=== PATIENT | female | born 1975 | race Caucasian/White ===

== ENCOUNTER → 2017-03-20 | Outpatient (CLI) | payer MEDICARE, MEDICAID ==
[~2017-03-20] MED LIST: ALPR0.2550 PO; ALPR1TAB7 PO; ALPR1TAB72 PO; BLUE GOO TOP; CYCL10TA9 PO; DIAZ10TA3 PO; DICL25TA PO; ESTR0.9T PO; FLC100T1 PO; FLUC150T2 PO; GABA300C PO; GBPN100C PO; HYDR-2997 PO; HYDR-3454 PO; HYDR-3816 PO; HYDR118S10 PO; HYDR1TAB PO; METH4TAB PO; MICONAZOLE 2% TOP; NAPR220C PO; NAPR500T3 PO; ONDA8TAB13 PO; ONDA8TAB6 PO; PANT40TA3 PO; PHEN-566 PO; PHEN37.582; RANI150T15 PO; SUMA25TA3 PO; SUMA50TA2 PO; TIZA4TAB55; [UNRECOGNIZED DRUG - OTHER] PO
--- NOTE | 2017-03-20 18:49 | Diagnostic Imaging Report ---
Bilateral screening mammogram 2D views with tomosynthesis The current study was also evaluated with a Computer Aided Detection (CAD) system. INDICATION: Screening. No current complaints stated on the questionnaire. COMPARISON: 03/02/2016. FINDINGS: The breasts are composed of scattered fibroglandular densities. There are scattered benign-appearing calcifications. Allowing for technique and positional differences, no suspicious change is seen. IMPRESSION: No significant change. ACR BI-RADS Category 2: Benign findings. Result letter will be mailed to the patient. Note: At least 10% of breast cancer is not imaged by mammography. Dictated by: Dictated on workstation # [id number]
== END ==
LOC: RAD 08:31
PROVIDERS: ATTEND Family Medicine
DX: Z12.31 Encounter for screening mammogram for malignant neoplasm of breast (principal)
CPT/HCPCS: 77067

== ENCOUNTER → 2018-01-03 | Outpatient (CLI) | payer MEDICARE, MEDICAID ==
[~2018-01-03] MED LIST changes: +HYDR-34 PO; -HYDR-3816 PO; +NAPR-915 PO; -NAPR500T3 PO; -RANI150T15 PO; +RANI150T46 PO
--- NOTE | 2018-01-03 19:08 | Diagnostic Imaging Report ---
INDICATION: Left shoulder pain and catching. TIME OF EXAM: 02:43 p.m. FINDINGS: Internal and external rotation views of the left shoulder are obtained. Glenohumeral and acromioclavicular alignment is normal. Acromiohumeral space is normal. No fracture or dislocation is seen. IMPRESSION: No acute bony abnormality is detected. Dictated by: Dictated on workstation # [id number]
== END ==
LOC: RAD 13:53
PROVIDERS: ATTEND Family Medicine
DX: M25.512 Pain in left shoulder (principal)
CPT/HCPCS: 73030

== ENCOUNTER 2018-02-10 17:23 | Emergency (ER) | payer MEDICARE, MEDICAID ==
[~2018-02-10] VITALS: Ht 175.3 cm; Wt 90.7 kg
[2018-02-10] MEDS ORDERED: fentaNYL INJECTION 100 MCG/2 ML AMP IVP ONE (17:45)
--- NOTE | 2018-02-10 18:15 | Diagnostic Imaging Report ---
INDICATION: Pain. EXAMINATION: Three views of the left shoulder were obtained. FINDINGS: The alignment is normal. There is no fracture or dislocation. The soft tissues are unremarkable. Left lung apex is clear. IMPRESSION: No acute fracture or dislocation. Dictated by: Dictated on workstation # [id number]
[2018-02-10] MEDS ORDERED: morphine INJ 10 MG/ML 1ML (SYR OR VIAL) IVP ONE (18:30)
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
[2018-02-10] MEDS ORDERED: HYDROcodone/APAP 10 MG/325 MG (LORTAB) TAB PO ONE (18:45)
[2018-02-10 18:53] VITALS: BP 128/67
== END 2018-02-10 18:50 | disposition home or self-care (01) ==
LOC: EDUNIT# 17:23 → ER 17:24
DX: M25.512 Pain in left shoulder (principal); K21.9 Gastro-esophageal reflux disease without esophagitis; F41.9 Anxiety disorder, unspecified; Z88.1 Allergy status to other antibiotic agents; Z88.8 Allergy status to other drugs, medicaments and biological substances; Z90.710 Acquired absence of both cervix and uterus
CPT/HCPCS: 73030

== ENCOUNTER 2018-03-14 08:42 | Outpatient (RCR) | payer MEDICARE, MEDICAID | END 2018-04-19 13:29 | disposition home or self-care (01) | PROVIDERS: ATTEND Orthopaedic Surgery | DX: Z47.89 Encounter for other orthopedic aftercare (principal); M25.512 Pain in left shoulder ==

== ENCOUNTER → 2018-03-21 | Outpatient (CLI) | payer MEDICARE, MEDICAID ==
--- NOTE | 2018-03-22 19:48 | Diagnostic Imaging Report ---
The current study was also evaluated with a Computer Aided Detection (CAD) system. 3-D tomosynthesis was also performed and reviewed. INDICATION: Digital mammogram bilateral screening. This study was compared to the prior exams of 03/20/2017, 03/02/2016 and 03/01/2015. At this time, there are no current complaints. FINDINGS: There are scattered fibroglandular densities in both breasts which could obscure a lesion. Overall, there does not appear to have been any significant change when compared to the prior exam. No primary or secondary sign of malignancy is noted. IMPRESSION: There is no radiographic evidence for malignancy. ACR BI-RADS Category 1: Negative. Result letter will be mailed to the patient. Note: At least 10% of breast cancer is not imaged by mammography. Dictated by: Dictated on workstation # [id number]
== END ==
LOC: RAD 07:13
PROVIDERS: ATTEND Family Medicine
DX: Z12.31 Encounter for screening mammogram for malignant neoplasm of breast (principal)
CPT/HCPCS: 77067

== ENCOUNTER → 2018-05-28 | Outpatient (CLI) | payer MEDICARE, MEDICAID ==
[2018-05-28 10:18] LABS: BASOPHILS % (AUTO) 0 % (0-10); EOSINOPHILS # (AUTO) 0.1 10^3/uL (0.0-0.3); EOSINOPHILS % (AUTO) 1 % (0-10); HEMATOCRIT 42 % (35-52); HEMOGLOBIN 14.3 G/DL (11.5-16.0); LYMPHOCYTES # (AUTO) 1.5 X 10^3 (1.0-4.0); LYMPHOCYTES % (AUTO) 21 % (12-44); MEAN CORPUSCULAR HEMOGLOBIN 30 PG (25-34); MEAN CORPUSCULAR HGB CONC 34 G/DL (32-36); MEAN CORPUSCULAR VOLUME 87 FL (80-99); MONOCYTES # (AUTO) 0.3 X 10^3 (0.0-1.0); MONOCYTES % (AUTO) 4 % (0-12); NEUTROPHILS # (AUTO) 5.3 X 10^3 (1.8-7.8); NEUTROPHILS % (AUTO) 73 % (42-75); PLATELET COUNT 247 10^3/uL (130-400); RED BLOOD COUNT 4.83 10^6/uL (4.35-5.85); RED CELL DISTRIBUTION WIDTH 13.2 % (10.0-14.5); WHITE BLOOD COUNT 7.3 10^3/uL (4.3-11.0)
[2018-05-28 10:40] LABS: ALANINE AMINOTRANSFERASE 20 U/L (0-55); ALBUMIN 4.3 GM/DL (3.2-4.5); ALKALINE PHOSPHATASE 69 U/L (40-136); BILIRUBIN,TOTAL 0.5 MG/DL (0.1-1.0); BUN/CREATININE RATIO 15; CALCIUM 9.3 MG/DL (8.5-10.1); CARBON DIOXIDE 25 MMOL/L (21-32); CHLORIDE 105 MMOL/L (98-107); CHOLESTEROL 233 MG/DL (< 200); CREATININE SERUM 0.73 MG/DL (0.60-1.30); GFR ESTIMATED > 60; GLUCOSE 95 MG/DL (70-105); HDL CHOLESTEROL 65 MG/DL (40-60); POTASSIUM 3.9 MMOL/L (3.6-5.0); SODIUM 140 MMOL/L (135-145); TOTAL PROTEIN 7.3 GM/DL (6.4-8.2); TRIGLYCERIDES 106 MG/DL (<150); VLDL CHOLESTEROL 21 MG/DL (5-40)
== END ==
LOC: LAB 09:45
PROVIDERS: ATTEND Family Medicine
DX: R53.83 Other fatigue (principal); E66.9 Obesity, unspecified; G89.29 Other chronic pain
CPT/HCPCS: 36415; 80053; 80061; 84443; 85025

== ENCOUNTER → 2018-08-20 | Outpatient (CLI) | payer MEDICARE, MEDICAID ==
--- NOTE | 2018-08-20 09:05 | Diagnostic Imaging Report ---
INDICATION: Low back pain. TECHNIQUE: AP, lateral, and spot imaging of the lumbar spine was performed. CORRELATION STUDY: None. FINDINGS: Posterior fusion hardware is present including transpedicular screws, interconnecting rods, and an intervertebral disc spacer device at the L5-S1 level. There is blurring across the disc space, likely owing to bony fusion. The alignment is anatomic. The nonfused segments demonstrate straightening but are otherwise anatomic. The lumbar vertebral body heights are maintained. There is mild multilevel disc space narrowing, most pronounced at the L4-L5, L2-L3, and L1-L2 levels. Diffuse hypertrophic facet arthropathy is suggested. IMPRESSION: Posterior fusion at the L5-S1 level with the alignment appearing to be anatomic. Additional multilevel disc space narrowing and hypertrophic facet arthropathy throughout the nonfused segments. Dictated by: Dictated on workstation # [id number]
--- NOTE | 2018-08-20 09:56 | Diagnostic Imaging Report ---
INDICATION: Left SI joint pain. FINDINGS: There are postsurgical changes and L5-S1 fusion. The sacrum appears to be intact. SI joints grossly unremarkable. There is no significant lysis or sclerosis. IMPRESSION: Unremarkable bilateral SI joints. Previous L5-S1 fusion. Dictated by: Dictated on workstation # [id number]
== END ==
LOC: RAD 08:24
PROVIDERS: ATTEND Family Medicine
DX: M51.36 Other intervertebral disc degeneration, lumbar region (principal); M46.86 Other specified inflammatory spondylopathies, lumbar region; M53.3 Sacrococcygeal disorders, not elsewhere classified; Z98.1 Arthrodesis status
CPT/HCPCS: 72100; 72202

== ENCOUNTER 2018-09-23 08:28 | Outpatient (RCR) | payer MEDICARE, MEDICAID | END 2018-10-21 11:37 | disposition home or self-care (01) | PROVIDERS: ATTEND Orthopaedic Surgery | DX: M75.02 Adhesive capsulitis of left shoulder (principal) ==

== ENCOUNTER 2018-12-06 05:39 | Outpatient (CLI) | payer MEDICARE, MEDICAID ==
[~2018-12-06] VITALS: Ht 175.3 cm; Wt 96.2 kg
[2018-12-06] MEDS ORDERED: ALPR0.254 PO (09:48)
[2018-12-06] MEDS ORDERED: APRE1TAB2 PO (09:48)
[2018-12-06] MEDS ORDERED: ESTR0.62 PO (09:48)
== END 2018-12-06 09:53 | disposition home or self-care (01) ==
LOC: PREOP 05:39
PROVIDERS: ATTEND Internal Medicine
DX: Z01.818 Encounter for other preprocedural examination (principal)

== ENCOUNTER 2018-12-10 07:03 | Day surgery (SDC) | payer MEDICARE, MEDICAID ==
--- NOTE | 2018-12-06 09:02 | HISTORY AND PHYSICAL ---
DATE OF SERVICE: EGD HISTORY AND PHYSICAL HISTORY OF PRESENT ILLNESS: The patient is a 43-year-old white female with history of dysphagia secondary to Schatzki's ring that has required several previous dilatations. She has noted over the past 2 months increased dysphagia to solids only. Occasionally, she will have to regurgitate a food bolus. Her last need for balloon dilatation was in 03/2016. She has noted no melena or bright red blood per rectum. Denies bowel habit change, abdominal pain or weight loss. She has had no problems with cough or sore throat. PAST MEDICAL HISTORY: Significant for degenerative disk disease. She has had multiple back surgeries in the past and has secondary disability. She has a history of migraine headaches. MEDICATIONS: On admission include: 1. Hydrocodone 7.5/325 q.4 p.r.n. 2. Cyclobenzaprine 10 mg q.8 p.r.n. 3. Alprazolam 0.25 mg q.8 p.r.n. 4. Sumatriptan 50 mg p.r.n. migraine. 5. Zofran 8 mg p.r.n. nausea. 6. Naprosyn 500 mg that she only takes with sumatriptan for migraine. 7. Premarin 6.25 mg daily. 8. Ranitidine 150 mg daily. 9. She is on Otezia, unknown dose. 10. Clobetasol cream p.r.n. 11. Clindamycin lotion p.r.n. REFERRING PHYSICIAN: Dr. Manuel Raphael. PAST SURGICAL HISTORY: Other than the aforementioned back surgeries, she did undergo cholecystectomy in [address] Franks. FAMILY HISTORY: The patient is not aware of any family history for GI tract malignancy. She does have a son, who has Crohn's disease. SOCIAL HISTORY: She has no past smoking history or any significant alcohol consumption. She is disabled secondary to her multiple back surgeries. REVIEW OF SYSTEMS: CONSTITUTIONAL: She denies night sweats, chills or fever. GASTROINTESTINAL: Is as per HPI. PULMONARY: She denies wheezing, cough or chest pain. CARDIOVASCULAR: She has no history for known cardiac disease. Denies chest pain, dyspnea at rest or dyspnea on usual exertion, has had no syncope or presyncope. PHYSICAL EXAMINATION: GENERAL: Reveals a pleasant white female, who appears to be in no acute distress. VITAL SIGNS: Weight of 213.8 pounds, is up 13 pounds from three years ago with blood pressure of 122/72, heart rate 72 and regular. HEENT: Unremarkable. Mallampati 2 oropharyngeal configuration. CHEST: Clear to auscultation. CARDIOVASCULAR: Revealed a regular rate and rhythm without murmur, S3 or S4. ABDOMEN: Soft, supple without mass, organomegaly or tenderness. EXTREMITIES: Reveal no cyanosis, clubbing or edema. ASSESSMENT AND PLAN: The patient was set up for diagnostic EGD with likely balloon dilatation to follow for symptoms of dysphagia with a history of Schatzki's ring requiring dilatation in the past, which has at least temporarily resolved this patient's dysphagia in the past. She has gone 2-1/2 years since her last dilatation. Prep instructions were explained. She was advised to abstain from Naprosyn in the interim and was set up for 12/10/2018. Job ID: [id number] DocumentID: [id number] Dictated Date: 12/06/2018 08:20:51 Commercial Account Executive Date: 12/06/2018 09:01:20 Dictated By: RIVER FOLEY MD
[~2018-12-10] VITALS: Ht 175.3 cm; Wt 96.2 kg
[~2018-12-10 07:03] MED LIST changes: +ALPR0.254 PO; +APRE1TAB2 PO; +ESTR0.62 PO
--- OUTSIDE RECORDS SUMMARY | 2018-12-10 07:07 | XMS REPORT | Encounter Summary ---
Author Author [facility] Organization [facility] Address Unknown Phone Unavailable Care Team Providers Care Benefits Clerk Name Role Phone Ian Hackett MD PCP Encounter Details Care Team Description Date Type Department Carrington Draper MD [address] [place] [address] 10/21/2009 Hospital [facility] Encounter Health System [address] [id number] Social History Date Tobacco Use Types Packs/Day Years Used Never Smoker Drinks/Week oz/Week Comments Alcohol Use No Sex Assigned at Date Recorded Not on file Industry Job Start Date Occupation Not on file Not on file Not on file Travel End Travel History Travel Start No recent travel history available. documented as of this encounter Medications at Time of Discharge Start Date End Date Medication Sig Dispensed Refills 07/14/2009 morphine IR (MS IR) 15 mg Take 1-3 Tabs 150 0 tablet by mouth Every 3 Hours as needed for Pain. 07/14/2009 docusate (COLACE) 100 mg Take 1 Cap by 30 1 capsule mouth Twice Daily. 07/14/2009 nystatin (MYCOSTATIN) Take 5 mL by 1 1 100,000 units/mL oral mouth Twice suspension Daily. estrogens, conjugated Take 1 Tab by 0 (PREMARIN) 0.9 mg tablet mouth Every Morning. alprazolam (XANAX) 0.25 Take 1 Tab by 0 mg tablet mouth Daily as needed. phentermine,+, 37.5 mg Take 1 Tab by 0 tablet mouth Every Morning. cyclobenzaprine Take 1 Tab by 0 (FLEXERIL) 10 mg tablet mouth Three Times Daily. documented as of this encounter Plan of Treatment Not on filedocumented as of this encounter Visit Diagnoses Diagnosis Degeneration of lumbar or lumbosacral intervertebral disc Displacement of lumbar intervertebral disc without myelopathy documented in this encounter
--- OUTSIDE RECORDS SUMMARY | 2018-12-10 07:07 | XMS REPORT | Encounter Summary ---
Author Author [facility] Organization [facility] Address Unknown Phone Unavailable Care Team Providers Care Hand Scudder Name Role Phone Ian Hackett MD PCP Encounter Details Care Team Description Date Type Department [facility] Draper MD [address] [facility] [place], [place] [id number] 10/21/2009 Hospital RADIOLOGY SPINE Encounter [address] [place] [address] Social History Date Tobacco Use Types Packs/Day [...] Not on filedocumented as of this encounter Procedures Comments Procedure Name Priority Date/Time Associated Diagnosis L SPINE AP & LATERAL Routine 10/21/2009 Lumbago 11:24 AM CDT documented in this encounter Results * L SPINE AP & LATERAL (10/21/2009 11:24 AM CDT) Exam Status [facility] SIGNED REPORT Exam EXAM: [facility] L-SPINE AP LATERAL History: Lumbago Comparison: 26 August 2009 Bilateral pedicle screw and connector antoinette the L5-S1 are intact and unchanged. Disc spacer at L5-S1 is unchanged. There is stable alignment, no compression fracture or listhesis. Minimal right curvature is noted, real or positional, unchanged. Impression L SPINE, AP & [facility] LATERALIMPRESSION: 1. STABLE POSTERIOR SURGICAL CONSTRUCT AT L5-S1 WITH INTERBODY FUSION PLUG. Electronically signed on: Oct 21 20091:[id number] by NEHEMIAS BAHENA M.D. PACS [facility] Specimen Impressions Performed At L SPINE, AP & LATERALIMPRESSION: [facility] 1. STABLE POSTERIOR SURGICAL CONSTRUCT AT L5-S1 WITH INTERBODY FUSION PLUG. Electronically signed on: Oct 21 20091:37PM by NEHEMIAS BAHENA M.D. Narrative Performed At EXAM: [facility] L-SPINE AP LATERAL History: Lumbago Comparison: 26 August 2009 Bilateral pedicle screw and connector antoinette the L5-S1 are intact and unchanged. Disc spacer at L5-S1 is unchanged. There is stable alignment, no compression fracture or listhesis. Minimal right curvature is noted, real or positional, unchanged. Performing Organization Address City/State/Zipcode Phone Number [facility] documented in this encounter Visit Diagnoses Diagnosis Lumbago documented in this encounter
--- OUTSIDE RECORDS SUMMARY | 2018-12-10 07:07 | XMS REPORT | Clinical Summary ---
Author Author [facility] Organization [facility] Address Unknown Phone Unavailable Care Team Providers Care Carpet Cleaner Name Role Phone Ian Hackett MD PCP Herbert Gibbs MD Unavailable Unavailable Carrington Draper MD Unavailable Source Comments Some departments are not documenting in the electronic medical record. If you d o not see the information that you expected, contact Release of Information in [facility] Information Management department at [phone] for further assistan ce in locating additional records.[facility] Allergies Comments Active Allergy Reactions Severity Noted Date cramps Azithromycin DIARRHEA, 07/02/2007 NAUSEA AND VOMITING, SEE COMMENTS Coconut ANAPHYLAXIS 07/02/2007 Oxycodone-Acetaminophen ITCHING 01/24/2008 Patient unsure, has family history Sulfa (Sulfonamide SEE COMMENTS 07/02/2007 Antibiotics) Medications End Date Status Medication Sig Dispensed Refills Start Date Active estrogens, conjugated Take 1 Tab by 0 (PREMARIN) 0.9 mg tablet mouth Every Morning. Active alprazolam (XANAX) 0.25 Take 1 Tab by 0 mg tablet mouth Daily as needed. Active phentermine,+, 37.5 mg Take 1 Tab by 0 tablet mouth Every Morning. Active cyclobenzaprine Take 1 Tab by 0 (FLEXERIL) 10 mg tablet mouth Three Times Daily. Active morphine IR (MS IR) 15 mg Take 1-3 Tabs 150 0 tablet by mouth 0 Every 3 Hours as needed for Pain. Active docusate (COLACE) 100 mg Take 1 Cap by 30 1 capsule mouth Twice 0 Daily. Active nystatin (MYCOSTATIN) Take 5 mL by 1 1 100,000 units/mL oral mouth Twice 0 suspension Daily. Active Problems Not on file Family History Medical History Relation Name Comments Asthma Brother Cancer Father Diabetes Father Cancer Maternal Grandfather High Cholesterol Maternal Grandfather Cancer Maternal Grandmother Heart Attack Maternal Grandmother Arthritis-osteo Mother High Cholesterol Mother Heart Attack Paternal Grandfather Heart Attack Paternal Grandmother Hypertension Paternal Grandmother Relation Name Status Comments Brother Father Maternal Grandfather Maternal Grandmother Mother Paternal Grandfather Paternal Grandmother Social History Date Tobacco Use Types Packs/Day Years Used Never Smoker Drinks/Week oz/Week Comments Alcohol Use No Sex Assigned at Date Recorded Not on file Industry Job Start Date Occupation Not on file Not on file Not on file Travel End Travel History Travel Start No recent travel history available. Last Filed Vital Signs Reading Time Taken Comments Vital Sign 106/58 07/14/2009 5:00 AM BASS FISHER Blood Pressure 98 07/14/2009 5:00 AM BASS FISHER Pulse 36.9 C (98.4 F) 07/14/2009 5:00 AM BASS FISHER Temperature - - Respiratory Rate 97% 07/14/2009 5:00 AM BASS FISHER Oxygen Saturation - - Inhaled Oxygen Concentration 83.6 kg (184 lb 4.9 oz) 06/21/2009 12:00 PM BASS FISHER Weight 175.3 cm (5' 9") 06/21/2009 12:00 PM BASS FISHER Height 27.22 06/21/2009 12:00 PM BASS FISHER Body Mass Index Plan of Treatment Health Maintenance Due Date Last Done Comments PHYSICAL (COMPREHENSIVE) 1980 EXAM HIV SCREENING 1988 DTAP/TDAP VACCINES (1 - 1991 Tdap) CERVICAL CANCER SCREENING 2003 BREAST CANCER SCREENING 2013 INFLUENZA VACCINE 03/25/2019 Results Not on filefrom Last 3 Months
--- OUTSIDE RECORDS SUMMARY | 2018-12-10 07:07 | XMS REPORT | Encounter Summary ---
Author Author [facility] Organization [facility] Address Unknown Phone Unavailable Care Team Providers Care Drainman Name Role Phone Ian Hackett MD PCP Encounter Details Care Team Description Date Type Department [facility] Draper MD [address] [facility] [place], [place] [id number] 02/10/2010 Hospital RADIOLOGY SPINE Encounter [address] [place] [address] Social History Date Tobacco Use Types Packs/Day [...] Diagnosis L SPINE AP & LATERAL Routine 02/10/2010 Lumbago 11:17 AM CDT documented in this encounter Results * L SPINE AP & LATERAL (02/10/2010 11:17 AM CDT) Exam Status [facility] SIGNED REPORT Exam EXAM: [facility] LUMBER SPINE 2 VIEWS. History: back pain. Compared October 21, 2009. Posterior and interbody fusion at L5-S1 with intact posterior surgical construct. Interbody fusion plug remains interposed at that disc space in good position without migration. There is normal alignment lumbar spine similar to prior study. There are no fractures. There are no bone lesions. There is mild straightening of lumbar spine. Impression L SPINE, AP & [facility] LATERALIMPRESSION: 1. NO CHANGE IN POSTERIOR AND INTERBODY FUSION AT L5-S1 WITH INTACT SURGICAL CONSTRUCT. Electronically signed on: Feb 10 2010 11:40AM by BEAU MONTEMAYOR M.D. [facility] Specimen Impressions Performed At L SPINE, AP & LATERALIMPRESSION: [facility] 1. NO CHANGE IN POSTERIOR AND INTERBODY FUSION AT L5-S1 WITH INTACT SURGICAL CONSTRUCT. Electronically signed on: Feb 10 2010 11:40AM by BEAU MONTEMAYOR M.D. Narrative Performed At EXAM: [facility] LUMBER SPINE 2 VIEWS. History: back pain. Compared October 21, 2009. Posterior and interbody fusion at L5-S1 with intact posterior surgical construct. Interbody fusion plug remains interposed at that disc space in good position without migration. There is normal alignment lumbar spine similar to prior study. There are no fractures. There are no bone lesions. There is mild straightening of lumbar spine. Performing Organization Address City/State/Zipcode Phone Number [facility] documented in this encounter Visit Diagnoses Diagnosis Lumbago documented in this encounter
--- OUTSIDE RECORDS SUMMARY | 2018-12-10 07:07 | XMS REPORT | Encounter Summary ---
Author Author [facility] Organization [facility] Address Unknown Phone Unavailable Care Team Providers Care Microsoft Bi Consultant Name Role Phone Ian Hackett MD PCP Encounter Details Care Team Description Date Type Department [facility] Draper MD [address] [facility] [place], [place] [phone] 08/26/2009 Hospital RADIOLOGY SPINE Encounter [address] [place] [address] Social History Date Tobacco Use Types Packs/Day [...] Diagnosis L SPINE AP & LATERAL Routine 08/26/2009 Lumbago 11:00 AM REHABILITATION THERAPY TECHNICIAN documented in this encounter Results * L SPINE AP & LATERAL (08/26/2009 11:00 AM REHABILITATION THERAPY TECHNICIAN) Exam Status [facility] SIGNED REPORT Exam EXAM: [facility] EXAM: L SPINE, AP \T\ LATERAL Clinical history: Lumbago FINDINGS: Dr. Shore has personally reviewed these images and formulated the interpretations and opinions expressed in this report. Comparison with previous films of July 29, 2009 There is posterior and interbody fusion at L5-S1. Pedicle screws and paraspinous rods transfix L5-S1. There is narrowing of the L4-L5 disc space. Mild right convexity rotoscoliosis. Impression L SPINE, AP & [facility] LATERALIMPRESSION: 1. POSTERIOR AND INTERBODY FUSION AT L5-S1. NO FRACTURE OR LOOSENING OF HARDWARE. NO CHANGE IN BONY ALIGNMENT. THERE IS NARROWING OF THE L4-L5 DISC SPACE. Residents: [place] Electronically signed on: 2009 11:56AM by MOE SHORE M.D. [facility] Specimen Impressions Performed At L SPINE, AP & LATERALIMPRESSION: [facility] 1. POSTERIOR AND INTERBODY FUSION AT L5-S1. NO FRACTURE OR LOOSENING OF HARDWARE. NO CHANGE IN BONY ALIGNMENT. THERE IS NARROWING OF THE L4-L5 DISC SPACE. Residents: [place] VALLADARES Electronically signed on: 2009 11:56AM by MOE SHORE M.D. Narrative Performed At EXAM: [facility] EXAM: L SPINE, AP \T\ LATERAL Clinical history: Lumbago FINDINGS: Dr. Shore has personally reviewed these images and formulated the interpretations and opinions expressed in this report. Comparison with previous films of July 29, 2009 There is posterior and interbody fusion at L5-S1. Pedicle screws and paraspinous rods transfix L5-S1. There is narrowing of the L4-L5 disc space. Mild right convexity rotoscoliosis. Performing Organization Address City/State/Zipcode Phone Number [facility] documented in this encounter Visit Diagnoses Diagnosis Lumbago documented in this encounter
--- OUTSIDE RECORDS SUMMARY | 2018-12-10 07:07 | XMS REPORT | Encounter Summary ---
Author Author [facility] Organization [facility] Address Unknown Phone Unavailable Care Team Providers Care Client Relation Specialist Name Role Phone Ian Hackett MD PCP Encounter Details Care Team Description Date Type Department Carrington Draper MD [address] [place] [address] 08/26/2009 Hospital [facility] Encounter [facility] [address] [address] Social History Date Tobacco Use [...] as of this encounter Visit Diagnoses Diagnosis Lumbago documented in this encounter
--- OUTSIDE RECORDS SUMMARY | 2018-12-10 07:07 | XMS REPORT | Encounter Summary ---
Author Author [facility] Organization [facility] Address Unknown Phone Unavailable Care Team Providers Care [employer] Teacher Name Role Phone Ian Hackett MD PCP Encounter Details Care Team Description Date Type Department Carrington Draper MD [address] [place] [address] 02/10/2010 Hospital [facility] Encounter [facility] System [address] [address] Social History Date Tobacco Use [...] Degeneration of lumbar or lumbosacral intervertebral disc Lumbago documented in this encounter
[2018-12-10] MEDS ORDERED: D5 LR IV SOLUTION 1,000 ML IV ONE (07:08)
--- OUTSIDE RECORDS SUMMARY | 2018-12-10 07:08 | XMS REPORT | Encounter Summary ---
Author Author Formerly [facility] Organization [facility] Address Unknown Phone Unavailable Care Team Providers Care Research Chemical Engineer Name Role Phone aIn Hackett MD PCP Encounter Details Care Team Description Date Type Department Carrington Draper MD [address] [facility] [place] [address] [phone] Lumbar disc displacement 07/09/2009 Hospital [facility] - Encounter [facility] 07/14/2009 [address] [place] [address] Social History Date Tobacco Use Types Packs/Day Years Used Never Smoker Drinks/Week oz/Week Comments Alcohol Use No Sex Assigned at Date Recorded Not on file Industry Job Start Date Occupation Not on file Not on file Not on file Travel End Travel History Travel Start No recent travel history available. documented as of this encounter Last Filed Vital Signs Reading Time Taken Comments Vital Sign 106/58 07/14/2009 5:00 AM MOLD MECHANIC Blood Pressure 98 07/14/2009 5:00 AM MOLD MECHANIC Pulse 36.9 C (98.4 F) 07/14/2009 5:00 AM MOLD MECHANIC Temperature - - Respiratory Rate 97% 07/14/2009 5:00 AM MOLD MECHANIC Oxygen Saturation - - Inhaled Oxygen Concentration 83.6 kg (184 lb 4.9 oz) 06/21/2009 12:00 PM MOLD MECHANIC Weight 175.3 cm (5' 9") 06/21/2009 12:00 PM MOLD MECHANIC Height 27.22 06/21/2009 12:00 PM MOLD MECHANIC Body Mass Index documented in this encounter Discharge Summaries * Jason Dooley MD - 07/14/2009 6:31 AM MOLD MECHANIC ADMITTED: 07/09/2009 DISCHARGED: 07/14/2009 ATTENDING PHYSICIAN: Nanda Draper M.D. DICTATING PROVIDER: Jason Dooley MD REASON FOR ADMISSION: Recurrent herniated nucleus pulposus on the right side L5 -S1 status post 2 prior diskectomies. HOSPITAL COURSE: Ms. Astudillo is a 34-year-old female with previous diskectom ies at L5 and S1 with recurrent disk protrusion. She underwent anterior lumbar interbody fusion L5-S1 with repeat diskectomy at those levels as well as a poste rolateral instrumented fusion with L5-S1 on July 09, 2009, by Dr. Matthew grhaam and Dr. Eloisa Preciado in Orthopedic Surgery and General Surgery. Postoperati vely, she had a drain placed and was placed on a n.p.o. status. On postop day n umber 1, she had gotten to the side of the bed with therapy. On postop day numb er 2, she had passed gas and was therefore transitioned from the patient control led analgesia to oral pain medicines and given a clear liquid diet. She did wel l to clear liquid diet. So that on postop day number 3, she was transitioned to a regular diet. Her drain output had decreased significantly. So that on post op day number 4, her drain was discontinued. Her Smith catheter was also discon tinued on postop day number 2 and she was able to void without issue. Her pain was controlled on oral pain medications. She was up with therapy and her incisi on was clean, day, and intact with no drains in. So that on July 14, 2009, s he was fit to go home. FINAL DIAGNOSIS: L5 and S1 with recurrent disk protrusion. OPERATIONS AND PROCEDURES: Anterior lumbar interbody fusion L5-S1 with repeat diskectomy at those levels as well as a posterolateral instrumented fusion with L5-S1 INSTRUCTIONS AND DISPOSITION: Activity - She is to avoid lifting, bending, and twisting. She is to change her dressing every other day with clean and dry dressing. She is to keep her incis ions clean, dry, and intact until followup both front and back incisions. Diet regular. Medications - 1. Morphine IR 15-45 mg p.o. q.2 h. p.r.n. for pain. 2. Colace 100 mg p.o. b.i.d. Followup - She was instructed to follow up in the clinic in 2 weeks' time. She is to let us know between now and the time we will see in the clinic if she expe riences any following signs or symptoms of chest pain, shortness of breath, elev ated temperature above 100 degrees Fahrenheit, foul odor, drainage, erythema, re dness, or other problems related to her surgery. Otherwise, look forward to seeing the patient back in [facility]. Attending Physician Signature (This report will become an official part of the medical record when reviewed an d SIGNED by the staff physician.) Jason Dooley MD / MEDQ [id number] P cc: MD Nanda Clarke M.D. MECHANIC documented in this encounter Discharge Instructions * Anesthesia Post-Op* Taylor Betancur MD - 07/09/2009 2:29 PM MOLD MECHANIC POST-ANESTHESIA CARE UNIT SIGN OUT Patient status-post General For Ant/post L5-S1 fusion Pain Scale 0-10: pt not sure but tolerable Vital Signs Stable; SpO2=98% on 2l/NC No pertinent labs A/P: Pt stable; will discharge to floor MECHANIC documented in this encounter Medications at Time of Discharge [...] Times Daily. documented as of this encounter Progress Notes * Lissa Weber - 07/14/2009 11:52 AM MOLD MECHANIC PHYSICAL THERAPY DISCHARGE NOTE GOALSGoals Goal Formulation: With Patient Time For Goal Achievement: 5 days Pt Will Go Supine To/From Sit: w/ Stand By Assist;Met Pt Will Transfer Sit to Stand: w/ Stand By Assist;Met Pt Will Ambulate: 151-200 Feet;w/ Stand By Assist;Met Pt Will Go Up / Down Stairs: 3-5 Stairs;w/ Stand By Assist;Met RECOMMENDATIONSDC Recommend Discharge Recommendations: Home With Assistance Equipment Recommendations: Patient owns necessary equipment Therapist: Lissa Weber, ENERGY SALES BROKER Date: 07/14/2009 MECHANIC * Lissa Weber - 07/14/2009 11:05 AM MOLD MECHANIC PHYSICAL THERAPY NO TREATMENT NOTE The patient was not seen due to: D/C home pending,pt reports feeling confident w / all mobility including bed mobility & stair navigation Therapist: Lissa Weber, ENERGY SALES BROKER Date: 07/14/2009 MECHANIC * Shu Morris - 07/14/2009 11:02 AM MOLD MECHANIC Reviewed discharge instructions with patient and she verbalized understanding. D C'd IV MECHANIC * Silver Finnegan - 07/14/2009 10:09 AM MOLD MECHANIC General Surgery Progress Note S: Pain much improved. +BM/flatus. O: Anterior approach incision C/D/I without ecchymosis, erythema, or drainage. BS +, Minimal appropriate TTP about this wound. VS tachy o/n, afebrile, labs WNL A: 34F POD#5 s/p anterior approach for spine surgery, recovering as expected. Re turn of bowel function o/n. P: Tolerating diet Discharge appropriate per general surgery Will discuss with staff Will SEVEN FinneganY1, [id number] MECHANIC * Jason Dooley MD - 07/14/2009 9:00 AM MOLD MECHANIC S: No acute events. Pain well-controlled. Patient tolerating current diet. O: Blood pressure 106/58, pulse 98, temperature 36.9 C (98.4 F), height 175 .3 cm (69"), weight 83.6 kg (184 lb 4.9 oz), SpO2 97%. General: AAOx3, NAD Cardiac: RRR Respirations: Unlabored Abdomen: soft, nt Extremities: YATES and exam stable. Incisions: clean, dry, intact Post-op Drains: (24 hours) None Recent Labs Basename 07/13/09 0415 PTT 30.8 INR 1.2* CBC w/Diff Lab Results Component Value Date/Time WBC 6.0 07/13/09 4:15 AM HGB 11.4* 07/13/09 4:15 AM HCT 33.3* 07/13/09 4:15 AM PLTCT 266 07/13/09 4:15 AM Basic Metabolic Profile Lab Results Component Value Date/Time NA 134* 07/13/09 4:15 AM K 3.9 07/13/09 4:15 AM CL 101 07/13/09 4:15 AM CO2 27 07/13/09 4:15 AM GAP 6* 07/13/09 4:15 AM Lab Results Component Value Date/Time BUN 3* 07/13/09 4:15 AM CR 0.44 07/13/09 4:15 AM GLU 101* 07/13/09 4:15 AM A/P: 34 yo F s/p Anterior/PSIF L5-S1 POD#5 1. D/C home when ready MECHANIC * Shu Morris - 07/14/2009 7:45 AM MOLD MECHANIC Patient sitting up in chair getting herself cleaned up. Rates pain at 3 out of 1 0 and says that this is tolerable for her. Scheduled discharge this morning. Juvenal hernandez continue to assess patient needs. MECHANIC * Jason Dooley MD - 07/13/2009 5:20 PM MOLD MECHANIC S: No acute events. Patient tolerating diet and ambulating with PT. O: Blood pressure 105/61, pulse 99, temperature 36.4 C (97.6 F), height 175 .3 cm (69"), weight 83.6 kg (184 lb 4.9 oz), SpO2 97%. General: AAOx3, NAD Cardiac: RRR Respirations: Unlabored Abdomen: soft, nt Extremities: YATES and NVI distally - some residual decreased sensation to light t ouch on R in L4/5 distribution. Normal strength throughout. Incisions: clean, dry, intact or erythematous Post-op Drains: (24 hours) Hemovac: 20/15 mL Recent Labs Basename 07/13/09 0415 PTT 30.8 INR 1.2* CBC w/Diff Lab Results Component Value Date/Time WBC 6.0 07/13/09 4:15 AM HGB 11.4* 07/13/09 4:15 AM HCT 33.3* 07/13/09 4:15 AM PLTCT 266 07/13/09 4:15 AM Basic Metabolic Profile Lab Results Component Value Date/Time NA 134* 07/13/09 4:15 AM K 3.9 07/13/09 4:15 AM CL 101 07/13/09 4:15 AM CO2 27 07/13/09 4:15 AM GAP 6* 07/13/09 4:15 AM Lab Results Component Value Date/Time BUN 3* 07/13/09 4:15 AM CR 0.44 07/13/09 4:15 AM GLU 101* 07/13/09 4:15 AM A/P: 34 yo F s/p L5-S1 ALIF/PSIF POD#3 1. Mobilize with PT. 2. D/C'ed drain and changed dressing. 3. Anticipate D/C home tomorrow. MECHANIC * Lissa Weber - 07/13/2009 3:47 PM MOLD MECHANIC PHYSICAL THERAPY DAILY TREATMENT NOTE SUBJECTIVESubjective Mental / Cognitive Status: Alert;Oriented;Cooperative Pain / No Pain: Patient agrees to participate in therapy;Pt complains of pain;Pa tient does not rate Pain Location: Back;Incisional Pain / Interventions: Patient premedicated;Treatment altered to patient's pain t olerance Precautions: Back Safety Precautions BED MOBILITY/TRANSFERSBed Mobility/Transfers Bed Mobility: Supine to Sit;Verbal Cues Required/Provided;Stand By Assist Type Of Assist: Head of Bed Elevated;Use of Rail Transfer Type: Sit to/from Stand Transfer To/From: Bed;To;Commode;w/ Verbal Cues;w/ Stand By Assist Type Of Assistance: For balance;For strength deficit Assistive Device: Roller Walker End Of Activity Status: Instructed Patient to Request Assist w/ Mobility;Instruc hailey Patient to Use Call Light (on BSC) GAITGait Gait Distance: 175 feet Gait Assistance: Standby Assistive Device: Roller Walker Gait Descriptors: Antalgic;Balance: No Loss of Balance;Pace: Slowed;Step-Through Gait Stairs Number Climbed: 5 number Amount Of Assistance: Standby;Verbal Cues for Technique Assistive Device: Rail Rails: One Rail Technique: Reciprocal RECOMMENDATIONSDC Recommend Discharge Recommendations: Home With Assistance Equipment Recommendations: Patient owns necessary equipment Therapist: Lissa Weber PTA Date: 07/13/2009 MECHANIC * Adilia Fong OT - 07/13/2009 12:49 PM MOLD MECHANIC OCCUPATIONAL THERAPY DISCHARGE NOTE Admitting Diagnosis: BACK PAIN Pt seen for 3 sessions including initial assessment from 07/10 to 07/13 Objective Psychosocial Status: Willing and Cooperative to Participate ADL's Eating Assist: Independent (FIM 7) Grooming Assist: Modified Independent (FIM 6) Grooming Deficits: (at sink) UE Dressing Assist: Independent (FIM 7) LE Dressing Assist: Modified Independent (FIM 6) LE Dressing Deficits: Use of Adaptive Equipment Activity Tolerance Endurance: 2/5 Tolerates 10-20 Min Exercise w/Multiple Rests Education Comments: Reviewed back precautions, lifting restrictions and adaptive equipment with Patient. She has no furhter questions Patient functioning at baseline. No further occupational therapy indicated. GOALS Further Evaluation Goals Pt Will Tolerate Further ADL Eval: w/in1-2 sessions;Met Funct Transfer Goals Pt Will Perform All Functional Transfers: Mod Indep;Met Therapist: Adilia Fong OT Date: 07/13/2009 MECHANIC * Lissa Weber - 07/13/2009 12:05 PM MOLD MECHANIC PHYSICAL THERAPY DAILY TREATMENT NOTE SUBJECTIVESubjective Mental / Cognitive Status: Alert;Oriented;Cooperative Pain / No Pain: Patient agrees to participate in therapy;Pt complains of pain;Pedro Luis cross does not rate Pain Location: Abdomen;Incisional;Back Pain / Interventions: Patient premedicated;Treatment altered to patient's pain t olerance Precautions: Back Safety Precautions BED MOBILITY/TRANSFERSBed Mobility/Transfers Transfer Type: Sit to/from Stand Transfer To/From: Bed Side Chair;To/From;w/ Verbal Cues;w/ Min Assist Type Of Assistance: For balance;For strength deficit Assistive Device: None End Of Activity Status: Up in Chair ((B)LE elevated) GAITGait Gait Distance: 125 feet Gait Assistance: Standby Assistive Device: Roller Walker Gait Descriptors: Antalgic;Pace: Slowed;Step-Through Gait Stairs Number Climbed: 5 number Amount Of Assistance: Minimal;Verbal Cues for Technique Assistive Device: Rail Rails: Two Rails Technique: Reciprocal;Non-Reciprocal RECOMMENDATIONSDC Recommend Discharge Recommendations: Home With Assistance;Communicated w/Case Management C oncerning Discharge Needs Equipment Recommendations: Roller Walker Therapist: Lissa Weber PTA Date: 07/13/2009 MECHANIC * Berta Rubi, AQUILINO - 07/13/2009 11:55 AM MOLD MECHANIC Pt had ALIF/PSIF L5S1 on 07/09. Spoke with pt who is sitting up in the chair, tearful because "I have something at the back of my throat and It hurst to cough.". Pt lives with TIEN Tony who will provide transportation [place]. Pt relate that her 2 teenage children will be there in the evenings and her sister is coming to [facility] with her all the time. Pt unsure what equipment she will need at nh. Paged by PT that pt will need RW at nh. MECHANIC * Silver Finnegan - 07/13/2009 8:46 AM MOLD MECHANIC General Surgery Progress Note S: Pt continues to have significant pain. +flatus. Denies BM since yesterday am. Denies N/V. O: Anterior approach incision C/D/I without ecchymosis, erythema, or drainage. BS +, Minimal appropriate TTP about this wound. VS tachy o/n, afebrile, labs WNL A: 34F POD#4 s/p anterior approach for spine surgery, recovering as expected. Re turn of bowel function o/n. P: Would continue with clear liquids until next BM Will continue to follow Will discuss with staff Will Kain, PGY1, [id number] MECHANIC * Jonna Dumont - 07/12/2009 4:44 PM MOLD MECHANIC Has no anabaptist to be called. Left devotional materials with patient. Volunteer camera systems engineer Amber had prayer for pain and healing with patient in presence of her : Chaz. Will continue to visit regularly. MECHANIC * Yadira Ibarra - 07/12/2009 2:47 PM MOLD MECHANIC PHYSICAL THERAPY DAILY TREATMENT NOTE SUBJECTIVESubjective Mental / Cognitive Status: Alert;Oriented x3 Persons Present: Spouse Pain / No Pain: Pt complains of pain;10/10 seated at EOB;Patient agrees to parti cipate in therapy Pain Location: Incisional (abdominal) Pain / Interventions: Patient premedicated;Treatment altered to patient's pain t olerance Additional Information: Pt reports pain at 7/10 prior to PT session. Pt also c/o headache stating she "can't think straight". When asked if she would participa te in physical therapy, pt showed visible signs of anxiety and began to cry. Precautions: Back Safety Precautions BED MOBILITY/TRANSFERSBed Mobility/Transfers Bed Mobility: Supine to Sit;Log Roll;Moderate Assist Type Of Assist: Bed Flat;No Rail;Assist with Trunk Transfer Type: Sit to/from Stand;Stand Pivot Transfer To/From: Bed;To;Bed Side Chair;w/ Min Assist Type Of Assistance: For balance Assistive Device: Hand Hold Assist End Of Activity Status: Up in Chair/Nursing Notified;Instructed Patient to Use C all Light Sitting Balance: 2+/5 Supports Self w/ 1 UE Standing Balance: 1+/5: >50% (Min Assist) Activity Limited By: Complaint of Pain Additional Information: Pt encouraged to sit up in bedside chair for no longer t esparza 1 hour and to call the nurse for assistance when getting back into bed. ACTIVITY/EXERCISEActivity / Exercise Sit Edge Of Bed Amt Of Time (mins)*: 5 minutes Sit Edge Of Bed Assist: Stand By Assist EDUCATIONEducation Persons Educated: Patient Barriers To Learning: Pain;Anxiety Interventions: Repetition of Instructions;Family Education Teaching Methods: Verbal Instruction;Demonstration Patient Response: Verbalized Understanding Topics: Plan/Goals of PT Interventions;Mobility Progression;Importance of Increa sing Activity ASSESSEMENT/PROGRESSAssessment/Progress Impaired Mobility Due To: Pain;Decreased Activity Tolerance Assessment / Progress: Should Improve w/ Continued PT PLANPlan Treatment Interventions: Mobility Training;Strengthening;ROM;Balance Activities Plan Frequency: 1-2x/day RECOMMENDATIONSDC Recommend Discharge Recommendations: Too Early To Determine Equipment Recommendations: Too early to be determined Therapist: Yadira Ibarra Date: 07/12/2009 MECHANIC * Lucía Alonso OT - 07/12/2009 1:47 PM MOLD MECHANIC OCCUPATIONAL THERAPY DAILY TREATMENT NOTE Admitting Diagnosis: BACK PAIN Patient seen x1 this date. Documentation reflects all daily treatment sessions. Subjective Patient Stated Goals: ("I would rather rest.") Precautions: Standard;Back Precautions Pain / Complaints: (Pt. declines EOB ADL's this afternoon. ) Pain Location: Back Pain Level Current: (Does not rate pain. ) Comments: (Verbalized that pain had improved but was "tired." ) Objective Persons Present: (Fiancee) ADL's Where Assessed: (Declined EOB ADL's. ) Upon entrance to room patient sleeping. She was easily aroused,however, dozing in and out of conversation. Explained importance of getting OOB/EOB. She stat ed "I need to rest." Verbalized that she had been to the commode over the [place] and had difficulty with hygiene. Will provide with adaptive equipment to ass ist with perineal hygiene when patient more alert. Briefly went over adaptive e quipment and uses. She stated "I will try later." Further Evaluation Goals Pt Will Tolerate Further ADL Eval: w/in1-2 sessions Funct Transfer Goals Pt Will Perform All Functional Transfers: Mod Indep;w/ Good Judgment/Safety Therapist: Lucía Alonso OT Date: 07/12/2009 MECHANIC * Jason Dooley MD - 07/12/2009 12:34 PM MOLD MECHANIC S: No acute events. O: Blood pressure 114/63, pulse 101, temperature 37.1 C (98.7 F), height 17 5.3 cm (69"), weight 83.6 kg (184 lb 4.9 oz), SpO2 95%. General: AAOx3, NAD Cardiac: RRR Respirations: Unlabored Abdomen: soft, nt Extremities: YATES. NVI distally. Incisions: clean, dry, intact Post-op Drains: (24 hours) Hemovac: 25/30 mL Recent Labs Basename 07/12/09 0430 PTT 30.7 INR 1.2* CBC w/Diff Lab Results Component Value Date/Time WBC 8.5 07/12/09 4:30 AM HGB 10.3* 07/12/09 4:30 AM HCT 29.8* 07/12/09 4:30 AM PLTCT 192 07/12/09 4:30 AM Basic Metabolic Profile Lab Results Component Value Date/Time NA 132* 07/12/09 4:30 AM K 4.5 07/12/09 4:30 AM CL 102 07/12/09 4:30 AM CO2 25 07/12/09 4:30 AM GAP 5* 07/12/09 4:30 AM Lab Results Component Value Date/Time BUN 4* 07/12/09 4:30 AM CR 0.48 07/12/09 4:30 AM GLU 98 07/12/09 4:30 AM A/P: 34F L5-S1 ALIF/PSIF 07/09 1. D/C smith 2. D/C drain 3. Transition to oral pain meds 4. Mobilize MECHANIC * Silver Finnegan - 07/12/2009 7:32 AM MOLD MECHANIC General Surgery Progress Note S: Pain better controlled. Pt is having HAs. +BM, flatus o/n. O: Anterior approach incision C/D/I without ecchymosis, erythema, or drainage. BS +, Minimal appropriate TTP about this wound. VS tachy o/n, afebrile, labs WNL A: 34F POD#3 s/p anterior approach for spine surgery, recovering as expected. Re turn of bowel function o/n. P: rec advancing diet, start with clear liquids Will continue to follow Will discuss with staff Lukas Finnegan PGY1, [id number] MECHANIC * Adriana Ballard, PT - 07/11/2009 2:28 PM MOLD MECHANIC PHYSICAL THERAPY DAILY TREATMENT NOTE SUBJECTIVESubjective Mental / Cognitive Status: Alert;Oriented;Cooperative Persons Present: Mother Pain / No Pain: Patient agrees to participate in therapy;Pt complains of pain;8 Pain Location: Abdomen;Back;Headache Pain / Interventions: Treatment altered to patient's pain tolerance;Patient enco uraged to use SYSTEMS SOFTWARE DESIGNER/PNA (IV) Precautions: Back Safety Precautions BED MOBILITY/TRANSFERSBed Mobility/Transfers Bed Mobility: Supine to Sit;Minimal Assist (Pt required increased time to comple te supine to sit.) Type Of Assist: Head of Bed Elevated;Use of Rail;Assist with Trunk End Of Activity Status: In Bed;Instructed Patient to Request Assist w/ Mobility; Instructed Patient to Use Call Light (Pt sitting EOB. Nursing notified. ) Sitting Balance: 2+/5 Supports Self w/ 1 UE Activity Limited By: Complaint of Pain;Complaint of Dizziness ACTIVITY/EXERCISEActivity / Exercise Sit Edge Of Bed Amt Of Time (mins)*: 15 minutes Sit Edge Of Bed Assist: Stand By Assist Exercise: Seated (ankle pumps) Exercise Reps: 15 reps EDUCATIONEducation Persons Educated: Pt/Family Barriers To Learning: Pain;Anxiety Interventions: Repetition of Instructions;Family Education Teaching Methods: Verbal Instruction Patient Response: Verbalized Understanding;Return Demonstration Topics: Plan/Goals of PT Interventions;Mobility Progression;Importance of Increa sing Activity ASSESSEMENT/PROGRESSAssessment/Progress Impaired Mobility Due To: Pain;Decreased Activity Tolerance;Post Surgical Change s Assessment / Progress: Should Improve w/ Continued PT PLANPlan Treatment Interventions: Mobility Training Plan Frequency: 1-2x/day RECOMMENDATIONSDC Recommend Discharge Recommendations: Too Early To Determine Equipment Recommendations: Too early to be determined Therapist: Adriana Ballard PT, DPT Date: 07/11/2009 MECHANIC * Praveena Cole - 07/11/2009 10:59 AM MOLD MECHANIC Subjective: No acute events overnight. Complains of pain. No flatus. Objective: Blood pressure 100/52, pulse 101, temperature 37.3 C (99.1 F), h eight 175.3 cm (69"), weight 83.6 kg (184 lb 4.9 oz), SpO2 94%. General: AAOx3, NAD Cardiovascular: RRR Chest: CTAB Abdomen: Soft, nontender, nondistended Neuro: 10/27 EHL, DF, PF bilaterally Back: Dressings clean/dry/intact HV - 65 cc, 40 cc Recent Labs Basename 07/11/09 0453 PTT 30.8 INR 1.2* CBC w/Diff Lab Results Component Value Date/Time WBC 9.0 07/11/09 4:53 AM HGB 10.3* 07/11/09 4:53 AM HCT 30.1* 07/11/09 4:53 AM PLTCT 170 07/11/09 4:53 AM Basic Metabolic Profile Lab Results Component Value Date/Time NA 133* 07/11/09 4:53 AM K 4.1 07/11/09 4:53 AM CL 103 07/11/09 4:53 AM CO2 25 07/11/09 4:53 AM GAP 5* 07/11/09 4:53 AM Lab Results Component Value Date/Time BUN 4* 07/11/09 4:53 AM CR 0.48 07/11/09 4:53 AM GLU 103* 07/11/09 4:53 AM Assessment: POD#2 L5-S1 ALIF/PSIF Plan: 1. PT/OT 2. NPO 3. Pain control 4. Suppository MECHANIC * Renny Lopez MD - 07/11/2009 9:00 AM MOLD MECHANIC General Surgery Progress Note S: Pt continues to complain of severe pain in back. Denies any new complaints o r concerns. No acute events or new issues overnight per nursing. O: Anterior approach dressing removed; wound C/D/I without ecchymosis, erythema , or drainage. Minimal appropriate TTP about this wound. Back wound left intac t. VS WNL, afebrile, labs WNL 105 out HVAC A: 34F POD#2 s/p anterior approach for spine surgery, recovering as expected, co ntinued pain OOC P: Will continue to follow Recommend pain management service evaluation for better pain control This case, assessment, and plan were discussed with Dr. Preciado, attending surge on RENNY LOPEZ MD, PGY3, pager [phone] MECHANIC * Lucía Alonso, OT - 07/10/2009 3:49 PM MOLD MECHANIC OCCUPATIONAL THERAPY ASSESSMENT NOTE Patient Name: Shirlene Astudillo Room/Bed: [facility]/ Admitting Diagnosis: BACK PAIN Past Medical History Diagnosis Date Migraine Chronic Low Back Pain Seasonal Allergies Right Leg Pain Numbness of Leg Right Subjective Patient Stated Goals: (Verbalizing that pain is "horrible." ) Precautions: Standard;Back Precautions Pain / Complaints: Patient Encouraged to Use SYSTEMS SOFTWARE DESIGNER (IV) Pain Location: (Right hip and lower back. ) Pain Level Current: 10 Worst possible pain Objective Psychosocial Status: Participates in Therapy with Encouragement Persons Present: (Parents) Home Living Type Of Home: House Home Layout: One Level (3 steps to enter home. ) Bathroom Shower / Tub: Tub/Shower Unit Bathroom Toilet: Standard Home Equipment: Cane (Hand Held shower. ) Prior Function Level Of Morris: Independent with ADLs and functional transfers Lives With: (Fiance and 2 teenage children.) Receives Help From: None Needed (Occasional assistance needed for self-cares. ) Vocational: Unemployed Vision Current Vision: Wears Glasses All of the Time (Denies blurred vision/double visi on. ) Ocular Range Of Motion: Within Normal Limits Tracking: Within Functional Limits ADL's Where Assessed: (Declined ADL's. Verbalized pain. ) Provided with Leach Tank Tender, Sock Hunter, Long Handled Bath Sponge and Long Handled Sh oe-horn. Discussed use and back safety pre-cautions. Activity Tolerance Endurance: 2/5 Tolerates 10-20 Min Exercise w/Multiple Rests Cognition Overall Cognitive Status: WFL to Adequately Complete Self Care Tasks Safely Orientation: A &O x3 Attention: Awake/Alert UE AROM Overall BUE AROM WNL: Yes (Right UE with mild discomfort. ) Sensory Comment: (No gross deficits noted. ) UE Strength / Tone Overall Strength / Tone: 4/5 Education Persons Educated: Pt/Family Barriers To Learning: Pain (Limited participation. ) Teaching Methods: Verbal Instruction;Demonstration Topics: Role of OT, Goals for Therapy;Energy Conservation;Home safety;ADL Compen satory Techniques;Adaptive Devices for ADLs Goal Formulation: With Patient Assessment Assessment: Decreased ADL Status;Decreased Endurance;Decreased Self-Care Trans;D ecreased High-Level ADLs Plan OT Frequency: 5x/wk Further Evaluation Goals Pt Will Tolerate Further ADL Eval: w/in1-2 sessions Funct Transfer Goals Pt Will Perform All Functional Transfers: Mod Indep;w/ Good Judgment/Safety Therapist: Lucía Alonso OT Date: 07/10/2009 MECHANIC * Leesa Coleyn - 07/10/2009 2:01 PM MOLD MECHANIC Subjective: No acute events overnight. Complains of pain. No flatus. Objective: Blood pressure 99/57, pulse 87, temperature 36.5 C (97.7 F), hei ght 175.3 cm (69"), weight 83.6 kg (184 lb 4.9 oz), SpO2 96%. General: AAOx3, NAD Cardiovascular: RRR Chest: CTAB Abdomen: Soft, nontender, nondistended Neuro: 10/27 EHL, DF, PF bilaterally Back: Dressings clean/dry/intact HV - 60 cc, 190 cc Recent Labs Basename 07/10/09 0402 PTT 28.4 INR 1.0 CBC w/Diff Lab Results Component Value Date/Time WBC 7.0 07/10/09 4:02 AM HGB 10.7* 07/10/09 4:02 AM HCT 30.9* 07/10/09 4:02 AM PLTCT 204 07/10/09 4:02 AM Basic Metabolic Profile Lab Results Component Value Date/Time NA 138 07/10/09 4:02 AM K 3.4* 07/10/09 4:02 AM CL 104 07/10/09 4:02 AM CO2 25 07/10/09 4:02 AM GAP 9 07/10/09 4:02 AM Lab Results Component Value Date/Time BUN 2* 07/10/09 4:02 AM CR 0.50 07/10/09 4:02 AM GLU 88 07/10/09 4:02 AM Assessment: POD#1 L5-S1 ALIF/PSIF Plan: 1. PT/OT 2. NPO 3. Pain control 4. Replace K MECHANIC * Adriana Ballard, PT - 07/10/2009 1:39 PM MOLD MECHANIC PHYSICAL THERAPY ASSESSMENT SUBJECTIVESubjective Mental / Cognitive Status: Alert;Oriented;Cooperative Persons Present: Mother Pain / No Pain: Patient agrees to participate in therapy;Pt complains of pain;10 Pain Location: Abdomen;Back Pain / Interventions: Nurse provides pain meds;Patient encouraged to use SYSTEMS SOFTWARE DESIGNER/PNA (IV);Treatment altered to patient's pain tolerance Precautions: Back Safety Precautions;Fall Precautions Prior Home Function: Indep Mobility in Community, No Device Patient Owned Equipment: None Home Situation: Lives w/Family (fiance and 2 teenage children) Type Of Home: House In-Home Stairs / Rails: No Stairs Entry Stairs / Rails: Stairs (3 steps to enter) ROMROM ROM Limited By: Pain STRENGTHStrength Strength Unable To Assess: Due to Pain/Surgery POSTURE/NEUROPosture / Neuro Head Control: Independent Posture: No postural deviations Tone: No Abnormality Noted BED MOBILITY/TRANSFERSBed Mobility/Transfers Bed Mobility: Supine To/From Sit;Minimal Assist;Verbal Cues Required/Provided (i ncreased time required to complete transfers) Type Of Assist: Assist with Trunk;Assist with Bilateral LEs;Head of Bed Elevated ;Use of Rail Transfer Type: (Not attempted this date due to pain.) End Of Activity Status: In Bed;Instructed Patient to Request Assist w/ Mobility; Instructed Patient to Use Call Light Sitting Balance: 2/5 Supports Self Independently w/Both UEs Activity Limited By: Complaint of Pain Additional Information: Pt activity very limited due to pain. Pt encouraged to use her SYSTEMS SOFTWARE DESIGNER. Pt demonstrates anxiety about movement. Pt proveded encouragement from therapist and pt's mother. Pt taught deep breathing to help with relaxati on and pain management. ACTIVITY/EXERCISEActivity / Exercise Sit Edge Of Bed Amt Of Time (mins)*: 2 minutes Sit Edge Of Bed Assist: Stand By Assist EDUCATIONEducation Persons Educated: Pt/Family Barriers To Learning: Pain;Anxiety Interventions: Repetition of Instructions Teaching Methods: Verbal Instruction Patient Response: Verbalized Understanding;Return Demonstration;More Instruction Required Topics: Plan/Goals of PT Interventions;Mobility Progression;Importance of Increa sing Activity ASSESSEMENT/PROGRESSAssessment/Progress Impaired Mobility Due To: Pain;Post Surgical Changes;Decreased Activity Toleranc e Assessment / Progress: Expect Good Progress GOALSGoals Goal Formulation: With Patient Time For Goal Achievement: 5 days Pt Will Go Supine To/From Sit: w/ Stand By Assist Pt Will Transfer Sit to Stand: w/ Stand By Assist Pt Will Ambulate: 151-200 Feet;w/ Stand By Assist (with appropriate device if ne eded) Pt Will Go Up / Down Stairs: 3-5 Stairs;w/ Stand By Assist PLANPlan Treatment Interventions: Mobility Training Plan Frequency: 1-2x/day RECOMMENDATIONSDC Recommend Discharge Recommendations: Too Early To Determine Equipment Recommendations: Too early to be determined Therapist: Adriana Ballard PT, DPT Date: 07/10/2009 MECHANIC * Silver Finnegan - 07/10/2009 7:30 AM MOLD MECHANIC Surgical Progress Note Shirlene Astudillo Subjective: Pain not adequately controlled o/n. Denies BM/F/N/V. Objective: Vital Signs: Last Filed Vital Signs: 24 Hour Ran ge NBP: 116/68 mmHg (07/10 524) Temp: 37.8 C (100 F) (07/10 401) Pulse: 108 (07/10 524) Respiratory: 22 PER MINUTE (07/10 524) SpO2: 100 % (07/10 524) O2 (lpm): 2 LPM (07/10 223) O2 Delivery: None (Room Air) (07/10 524) NBP: (93-123)/(43-68) Temp: [36.4 C (97.5 F)-37.8 C (100 F)] Pulse: [68-108] Respiratory: [16 PER MINUTE-24 PER MINUTE] SpO2: [95 %-100 %] O2 (lpm): [1 LPM-2 LPM] O2 Delivery: [-] Pain Scale 0-10: (not recorded) Intake/Output: Intake/Output Summary (Last 24 hours) at 07/10/09 0730 Last data filed at 07/10/09 0711 Gross per 24 hour Intake 1299.67 ml Output 2100 ml Net -800.33 ml Physical Exam: A&O, NAD CTAB, no R/R/W RRR, no M/R/G S/NT/ND/+BS; dressing with serous breakthrough No C/C/E Lab Results Component Value Date/Time HGB 10.7* 07/10/09 4:02 AM HCT 30.9* 07/10/09 4:02 AM WBC 7.0 07/10/09 4:02 AM PLTCT 204 07/10/09 4:02 AM PT 11.9 01/20/08 12:50 PM PTT 28.4 07/10/09 4:02 AM INR 1.0 07/10/09 4:02 AM NA 138 07/10/09 4:02 AM K 3.4* 07/10/09 4:02 AM CL 104 07/10/09 4:02 AM CO2 25 07/10/09 4:02 AM BUN 2* 07/10/09 4:02 AM CR 0.50 07/10/09 4:02 AM GLU 88 07/10/09 4:02 AM CA 7.6* 07/10/09 4:02 AM ALBUMIN 3.7 06/21/09 12:47 PM TOTPROT 7.0 06/21/09 12:47 PM AST 29 06/21/09 12:47 PM ALT 49 06/21/09 12:47 PM ALKPHOS 65 06/21/09 12:47 PM Assessment & Plan: 34 F w/ L5-S1 herniation and DJD; POD #1 Anterior extraperitoneal exposure to the L5-S1 intervertebral disk space with diskectomy and interbody lumbar fusion of L5-S1. - awaiting bowel function - Keep NPO for now - discuss with staff Silver Finnegan DO MECHANIC * Logan Real RN - 07/10/2009 5:50 AM MOLD MECHANIC Pt in uncontrollable pain, called and boluses given. Pt now resting comforta arian. MECHANIC * Bharati Pérez RN - 07/09/2009 4:11 PM MOLD MECHANIC Patient admitted to unit 43. Alert and oriented x 3. VS Stable. Family at [facility]. Pain controlled by Fentanyl SYSTEMS SOFTWARE DESIGNER. Patient oriented to room and to orders. Will continue to monitor. MECHANIC * Natalia Goss RN - 07/09/2009 3:49 PM MOLD MECHANIC abd inc with drsg with some drainage a/ox3 introduced call light and phone fall sign and ID placed no c/o at this time will cont MECHANIC documented in this encounter H&P Notes * Carrington Draper MD - 07/09/2009 7:11 AM MOLD MECHANIC History and Physical Update Note Allergies: Azithromycin, Sulfa (sulfonamide antibiotics), Coconut and Oxycodone -acetaminophen Lab/Radiology/Other Diagnostic Tests: Pertinent labs reviewed Point of Care Testing: (Last 24 hours): I have assessed the patient, and there are no significant changes in their condi tion from the previous H & P performed on 07/02/08 Carrington DRAPER MD Pager MECHANIC * Salty Cruz PA-Lorne - 07/02/2009 12:00 AM MOLD MECHANIC ROOM #: OR DICTATING PROVIDER: PEDRO LUIS Phan EXPECTED DATE OF SURGERY: 07/09/2009 HISTORY AND PHYSICAL DATE: 07/02/2009 CHIEF COMPLAINT/HISTORY OF PRESENT ILLNESS: Right leg pain. History of present illness: This is a 34-year-old female, who is seen in the of [facility] today for repeat evaluation of her lumbar spine. She has a history of 2 pr ior diskectomy procedures in June 2007 and January 2008 for right-sided L5-S1 herniated nucleus pulposus. She has done okay since the time of her last surger y; however, had a recurrence of her right leg pain in April. She has had sara te a bit of back pain associated with this as well since the time of her last lara rgery. She had been through conservative management including activity modifica tion, formalized physical therapy, pain management, and epidural steroid injecti ons, continues to have significant problems, wishes to proceed with surgical opt ions. Past medical history: Negative. Past surgical history: Includes tubal ligation, hysterectomy, and a 2 previous diskectomy procedures. Allergies: Sulfa, Z-FRIDA, and coconut. Medications: Premarin, Zanaflex, Tylenol No. 3, Demerol, and Xanax. Social history: The patient does not smoke or drink. Family medical history: Significant for diabetes and cancer. Review of systems: Negative. Physical examination: This is a 34-year-old female. Mood and affect are approp riate. She is in no acute distress today. Height and weight are not available. She has full motor function including EHL, anterior tib, quads, and hip flexor s. Positive straight leg raise on the right. Negative straight leg raise on th e left. Sensation intact distally. Palpable pedal pulses. Reflexes 1+ and equ al in the knees and ankle bilaterally. No pain with internal or external rotati on of hips. Radiographic evaluation: Review the new MRI post gadolinium images showed large recurrent disk herniation on the right at L5-S1. No acute bony abnormalities a re noted. Shows mild disk desiccation at L4-L5. X-rays obtained today showed d egenerative disk at L5-S1 supra-adjacent disk, appeared to be well maintained. IMPRESSION: This is a 34-year-old female with a large right-sided recurrent dis k herniation at L5-S1 status post 2 prior right-sided L5-S1 microdiskectomies. PLAN: I did have a lengthy discussion with the patient regarding any problem, t reatment, and alternatives. We did review her x-rays and MRI with her as well a s pathoanatomy and pathophysiology of the problem. She has failed conservative management and wishes to proceed with surgery. Surgery for this problem is mary g to entail an anterior posterior instrumented fusion at L5-S1. Risks of the pr ocedure including , paralysis, infection, dural leak, nerve root injury, ch ronic pain, pseudoarthrosis, and blood loss were discussed. She understands the se risks and agrees to proceed. We will plan on doing her surgery on 07/09/2009 at 7:15 a.m. She will check-in the hospital at 5:30. History and Physical por tion of the exam were completed and the patient was set down to preanesthesia te sting. Admitting Staff Physician Signature (This report will become an official part of the medical record when reviewed an d SIGNED by the staff physician.) PEDRO LUIS Phan / SUSANNA [id number] p cc: Nanda Draper M.D. MECHANIC documented in this encounter Procedure Notes * Niles Carr - 07/09/2009 12:00 AM MOLD MECHANIC DATE OF OPERATION: 07/09/2009 ROOM #: 4307 SURGEON: Nanda Draper M.D. NEUROLOGIST: Niles Carr MD OPERATION: Anterior L5-S1 interbody fusion followed by posterior L5-S1 instrume nted fusion on this 34-year-old woman with recurrent herniated nucleus pulposus. The patient complains of lower back and leg pain with radicular characteristic s. ANESTHESIA: Isoflurane. MODALITIES: Intraoperative somatosensory evoked potentials, free run EMG, pedic le screw stimulation, and slow repetitive nerve stimulation. MONITORING START TIME: 7:50 a.m. MONITORING END TIME: 12:20 p.m. PARAMETERS: Upper and lower extremity somatosensory evoked potentials were perf ormed using ulnar and tibial nerve stimulation at the wrists and ankles, respect ively, with conventional filter settings, recording montage, and stimulation rat e. Stimulus intensity was 50 milliamps. Free running, multichannel, mechanically-evoked continuous EMG monitoring was pe rformed using subdermal needle recording electrodes inserted bilaterally into th e vastus lateralis, tibialis anterior, flexor digitorum longus, and abductor melinda lucis muscles. A stimulated EMG panel was established specifically for pedicle screw stimulatio n monitoring. The same subdermal needle recording electrode sites used for free -run EMG monitoring were incorporated into this specific stimulated EMG panel. After sterile stimulating and reference electrodes were passed off to the Surgic al Team, and appropriately positioned, stimulus intensity was gradually increase d until a stable well-developed compound muscle action potentials emerged in the appropriate myotome. The stimulus intensity threshold at which this occurred w as documented and reported to the Surgical Team. A livwo-tr-wfcr panel was established to monitor the level of pharmacologic neur omuscular blockade. For this purpose, the left deep peroneal received slow repe titive nerve stimulation at the fibular head and compound muscle action potentia ls were recorded from the ipsilateral tibialis anterior muscle, specifically den oting the degree of decrement. Where changes were indicated in the level of pha rmacologic neuromuscular blockade, this was communicated to the Anesthesia Staff to ensure optimal continuous neurophysiologic monitoring conditions. TECHNIQUE DESCRIPTION: Preincisional and postexposure baseline somatosensory ev oked responses were acquired. Well-developed and well-modulated scalp potential s were obtained following both ulnar and tibial nerve stimulation. No significa nt amplitude attenuation or latency shift developed. Erb's point was additional ly monitored in the upper limb panel. These peripheral responses also remained stable throughout the session, showing no suggestion of a developing ulnar or in ferior brachial plexus component positioning neuropathy. Free-run EMG monitoring showed no baselines spontaneous activity. No sustained neural-evoked discharges were observed during surgical manipulation. With pedicle screw stimulation, the following stimulus intensity thresholds were acquired, reported in milliamperes: Right L5 14, left L5 29, right S1 15, and left S1 22. IMPRESSION: These results show no indication of intraoperative injury occurring to the lumbosacral myotomes, peripheral nerves, and spinal somatosensory pathwa ys monitored during the surgical procedure. Pedicle screw stimulation yielded excellent results. Staff Physician Signature (This report will become an official part of the medical record when reviewed an d SIGNED by the staff physician.) Niles Carr MD / SUSANNA [id number] p cc: MD Nanda Moran M.D. MECHANIC documented in this encounter Miscellaneous Notes * Discharge Instructions - Shu Morris - 07/14/2009 11:01 AM MOLD MECHANIC Discharge Documentation: Discharge Procedure Orders Regular Diet Who to Contact: You may have questions about your hospital stay after you get home. If so, please call the hospital at [phone] and ask the presto log operator to transfer you to the office of your discharge attending physician, or to page the doctor ignition mechanic (after 4:30 PM or on weekends or holidays). Discharging attending physician: Carrington DRAPER [[id number]] No driving for: No driving for: 6 : Weeks No lifting over: No bending or twisting No lifting over __ lbs: 15 For: 6 : Weeks Dressing Changes Dry dressing changes every 2-3 days or as needed Bathing Instructions Sponge baths only Suture/Staple removal in days Note how many days after discharge sutures/roger should be removed. 2 weeks Reportable Signs and Symptoms Call for: Fever Call for: Redness Call for: Drainage Return Appointment 2 weeks - call [phone] for follow-up appointment Provider Carrington DRAPER [[id number]] Location [facility] Keep incision clean and dry Current Discharge Medication List START taking these medications morphine IR (MS IR) 15 mg tablet Take 1-3 Tabs by mouth Every 3 Hours as needed for Pain. Qty: 150 Refills: 0 docusate (COLACE) 100 mg capsule Take 1 Cap by mouth Twice Daily. Qty: 30 Refills: 1 nystatin (MYCOSTATIN) 100,000 units/mL oral suspension Take 5 mL by mouth Twice Daily. Qty: 1 Refills: 1 CONTINUE these medications which have NOT CHANGED estrogens, conjugated (PREMARIN) 0.9 mg tablet Take 1 Tab by mouth Every Morning. alprazolam (XANAX) 0.25 mg tablet Take 1 Tab by mouth Daily as needed. phentermine,+, 37.5 mg tablet Take 1 Tab by mouth Every Morning. cyclobenzaprine (FLEXERIL) 10 mg tablet Take 1 Tab by mouth Three Times Daily. STOP taking these medications hydrocodone/acetaminophen,+, (LORTAB) 7.5/[address] (VOLTAREN) 75 mg tablet Safety Checks: DC'd IV MECHANIC * Anesthesia Pre-Op - Tayolr Betancur MD - 07/09/2009 6:54 AM MOLD MECHANIC Pre-Operative Anesthesia Assessment Admission Date: 07/09/2009 LOS: 0 days Assessment: ASA II Plan: General Chief Complaint/ Planned Procedure: Anterior lumbar interbody fusion L5-S1 foll owed by posterior instrumented fusion at L5-S1 NPO :for greater than 6 hours and Last food/drink at 2100 Patient Active Hospital Problem List: * No active hospital problems. * Staff Surgeon: Baron Admission Status: A.M. Admission/Same Day Admission Surgery Date: 07/09/2009 Patient location: Same Day Surgery Historian: Patient and Old Record Past Medical History Diagnosis Date Migraine Chronic Low Back Pain Seasonal Allergies Right Leg Pain Numbness of Leg Right Past Surgical History Procedure Date Hx leonela and bso Hx tubal ligation Nail Hx lumbar diskectomy Complications: None Nursing Medical History Psychiatric Disorder Yes claustrophobia Asthma Yes during adolescence Other Yes endometriosis, ovarian cyst, lumbar herniated disc, R hip and leg pain Nursing Surgical History Back Surgery Yes microdiskectomy X2 2007 Hysterectomy Yes complete 1996 Prior Anesthetic Types: General Family Anesthesia HX: None Allergies Allergen Reactions Azithromycin DIARRHEA, NAUSEA AND VOMITING and SEE COMMENTS cramps Sulfa (Sulfonamide Antibiotics) SEE COMMENTS Patient unsure, has family history Coconut ANAPHYLAXIS Oxycodone-acetaminophen ITCHING Medications Outpatient Current outpatient prescriptions Medication Sig estrogens, conjugated (PREMARIN) 0.9 mg tablet Take 1 Tab by mouth Every Mor stevo. alprazolam (XANAX) 0.25 mg tablet Take 1 Tab by mouth Daily as needed. phentermine,+, 37.5 mg tablet Take 1 Tab by mouth Every Morning. hydrocodone/acetaminophen,+, (LORTAB) 7.5/500 mg tablet Take 2 Tabs by mouth Every 4-6 Hours as needed for Pain. diclofenac sodium DR (VOLTAREN) 75 mg tablet Take 1 Tab by mouth Every 12 Ho urs. cyclobenzaprine (FLEXERIL) 10 mg tablet Take 1 Tab by mouth Three Times Geovanna y. Social History Substance Use Topics Tobacco Use: Never Alcohol Use: No Review of Systems Airway:WNL, Crowns and lower left bottom Cardiovascular: WNL and Exercise tolerance > 4 METS Pulmonary: WNL GI:WNL Endocrine: WNL Heme/Onc: WNL Renal:WNL Neurological:sciatica right leg Musculoskeletal:WNL Vital Signs (Last Filed in 24 hours) NBP: 120/67 mmHg (07/09 599) Temp: 36.1 C (97 F) (07/09 599) Pulse: 89 (07/09 599) Respiratory: 16 PER MINUTE (07/09 599) SpO2: 100 % (07/09 599) Physical Exam Shirlene Astudillo is a 34 y.o. female. Wt - Scale: 83.6 kg (184 lb 4.9 oz) Height: 175.3 cm (69") BMI (Calculated): 27.27 Airway: I , Normal thyromental distance and Good ROM Cardiovascular:Heart sounds: regular rate and rhythm and No murmur Pulmonary: Breath sounds: clear, equal bilaterally and Respirations regular and unlabored GI/Metabolic:WNL Neurological:WNL, Alert and Oriented Diagnostic Tests Hematology: Lab Results Component Value Date HGB 14.9 06/21/09 HCT 43.1 06/21/09 PLTCT 244 06/21/09 WBC 9.4 06/21/09 MCV 91.0 06/21/09 MCHC 35.0 06/21/09 MPV 8.0 06/21/09 RDW 13.2 06/21/09 General Chemistry: Lab Results Component Value Date NA 138 06/21/09 K 3.4 06/21/09 CL 105 06/21/09 GAP 9 06/21/09 BUN 8 06/21/09 CR 0.58 06/21/09 GLU 90 06/21/09 CA 9.4 06/21/09 ALBUMIN 3.7 06/21/09 TOTBILI 0.6 06/21/09 Coagulation: Lab Results Component Value Date PT 11.9 01/20/08 PTT 29.9 06/21/09 INR 1.0 06/21/09 Labs: Pertinent labs reviewed EKG: Not obtained Assessment by: Momo Sorensen MD ATTESTATION I have reviewed guzman portions of the evaluation with the patient/parent/guardian and made changes as noted. I have examined the patient's airway, heart, lungs, and neurological system and made changes as noted. ASA Classification: ASA II The anesthesia plan is General Plan discussed with patient and all questions answered. TAYLOR BETANCUR MD 07/09/2009 Da te: 07/09/2009 MECHANIC * Operative Report (DICTATED ONLY) - Eloisa Preciado MD - 07/09/2009 12:00 AM MOLD MECHANIC DATE OF OPERATION: 07/09/2009 ROOM #: 4307 SURGEON: Eloisa Preciado Jr, MD. CO-SURGEON: Nanda Draper M.D. PREOPERATIVE DIAGNOSIS: Repeat disk herniation at L5-S1. Degenerative intervertebral disk disease. POSTOPERATIVE DIAGNOSIS: Same. OPERATIVE PROCEDURE: Anterior extraperitoneal exposure to the L5-S1 intervertebral disk space with di skectomy and interbody lumbar fusion of L5-S1. ANESTHESIA: General. INDICATIONS FOR OPERATIVE PROCEDURE: This patient is well known to Dr. Draper, who asked for me to provided anterior extraperitoneal exposure to the L5-S1 int ervertebral disk space. DESCRIPTION OF OPERATIVE PROCEDURE: Following the satisfactory induction of gen eral endotracheal anesthesia, the patient's abdomen was prepped with Betadine an d draped in the usual sterile fashion. A midline incision was made from just be low the umbilicus to just above the symphysis pubis carried down through the sub cutaneous tissue. The linea alba was incised. The extraperitoneal space was identified and a combination of blunt and sharp di ssection utilized to enter the retroperitoneum on the left side. The left psoas muscle was identified. The left common and external iliac artery pulsations we re identified and the peritoneal contents on the left ureter were retracted medi ally towards the patient's right. The L5-S1 intervertebral disk space was palpa hailey. A combination of blunt and sharp dissection utilized to expose the entire anterior aspect of the L5-S1 intervertebral disk space. The median sacral vesse ls were individually identified, circumferentially dissected, doubly ligated, an d divided. A self-retaining Harrell spinal retractor was deployed and at this point, Dr. Draper proceeded after fluoroscopic confirmation of the L5-S1 interv ertebral disk space level with the diskectomy and interbody lumbar fusion. Upon completion of which, the wound was irrigated with warm normal saline, checked f or hemostasis, which was found to be adequate and the midline incision was close d with running number 1 looped PDS fascial closure. The subcutaneous tissue was irrigated with warm normal saline, checked for hemostasis, which was found to b e adequate. The skin was approximated with skin roger. A sterile dressing wa s applied. All needle and sponge counts were correct and the pedal pulses were palpable and bilaterally symmetrically on both lower extremities. _ATTESTATION I performed this procedure without the involvement of a resident. Staff name: ELOISA PRECIADO MD Date: 07/14/2009 Staff Physician Signature (This report will become an official part of the medical record when reviewed an d SIGNED by the staff physician.) Eloisa Preciado Jr, MD. / [facility] [id number] p cc: Eloisa Preciado Jr, MD. MECHANIC * Operative Report (DICTATED ONLY) - Carrington Draper MD - 07/09/2009 12:00 AM MOLD MECHANIC DATE OF OPERATION: 07/09/2009 ROOM #: [id number] SURGEON: Nanda Draper M.D. CO-SURGEON: Eloisa Preciado Jr, MD. TELEVISION REPORTER(S): Jason Dooley MD PREOPERATIVE DIAGNOSIS: Recurrent herniated nucleus pulposus right L5-S1 status post 2 prior diskectomie s. POSTOPERATIVE DIAGNOSIS: Same. OPERATIVE PROCEDURE: Anterior lumbar interbody fusion at L5-S1 with a repeat diskectomy right L5-S1 a nd posterolateral instrumented fusion L5-S1 with the use of Infuse anteriorly an d posteriorly VITOSS with bone marrow aspirate from the vertebral body. ANESTHESIA: General. INDICATIONS FOR OPERATIVE PROCEDURE: The patient is a 34-year-old female who machado s undergone 2 prior microdiskectomies at L5-S1. An MRI scan reveals recurrent d isk protrusion right L5-S1 that is large. Understanding the alternative treatme nt, risks and potential complications, she request surgery. DESCRIPTION OF OPERATIVE PROCEDURE: The patient's preoperative informed consent was obtained. She was taken to the operative suite where general anesthesia wa s undertaken. She was provided with preoperative antibiotics. Standard somatos ensory and EMG leads were placed. She was placed supine on the operating table and all bony prominences were well padded. Her abdomen was then prepped and penny ped in sterile fashion. Dr. Eloisa Preciado then performed the anterior retroper itoneal approach to the L5-S1 level. Please see his dictation for the specifics . Once the disk space has been isolated, C-arm was used to confirm the midline and then the appropriate level on lateral projection. The annulus was incised i n the midline and elevated to the right and left. A complete diskectomy was per formed back to the posterior longitudinal ligament. A large rent in the midline was identified and moderate disk material was removed that most likely represen hailey the recurrent disk protrusion. Once diskectomy had been completed, the end plates were prepared. A size 16, 8-degree large footprint trial was found to be the appropriate size. This final implant was packed with Infuse of 10 mL. The end plates were perforated with an awl. The wound irrigated and graft impacted in place. Additional graft was placed around the anterior and lateral aspects. The annulus was repaired with number 1 Vicryl. Surgicel was placed over the a nnulus. Confirmation of the appropriate level and position of the graft was per formed on C-arm. Dr. Eloisa Preciado then performed closure. A sterile dressing was applied to the wound. The patient was then turned prone to the four onion farmer ior frame and again all bony prominences were well padded. The monitoring had b een stable to that point. Her back then prepped and draped in sterile fashion. Utilizing her previous scar, a midline incision was made over the L5-S1 level. Dissection was carried to lumbar fascia and subperiosteal spine was exposed out through the transverse process of L5 and sacral ala. An intraoperative x-ray w as obtained verifying the appropriate level. All soft tissue was cleaned off th e midline. Preparation was made for placement of pedicel screws. A geraldine was used down the cortex. Pedicle probe used to palpate down along the pedicle ball-tip filler to ensure that the pedicle had not being violated, tap followed by ball-tip probe and placement of pedicle screw. [employer] radius instrumentation was used. A 675 x 40 mm screw was placed into L5 and 775 x 40 mm screws placed in sacrum. Sati sfactory position of screw was noted. The screws were checked for impedance and found to be appropriate. A laminotomy of right L5-S1 was then performed. The scar tissue was freed off of the previous laminotomy and the nerve root sac mobi lized to ensure that the nerve was free and untethered and once the repeat kimani otomy had been completed, the nerve was free and untethered. Foramen was widely patent. There was no evidence of nerve compromise. The wound was copiously ir rigated with 3 liters of pulse lavage normal saline. Gelfoam placed through stephenson inotomy site. The transverse process and sacral ala and facet joint were then d ecorticated with a geraldine. VITOSS 10 mL was placed posterolaterally and into the facet joint mixed with 10-15 mL of bone marrow aspirate from the pedicle hole wh en placing the pedicle screws. The 2 rods precontoured were secured to the scre ws and caps applied and final tightened. Intraoperative x-rays had been obtaine d verifying the appropriate position of the screws and levels. A large Hemovac drain left in place. The fascia was reapproximated with 0 Ethibond and number 1 running Vicryl was used to reinforce the fascia, 2-0 Vicryl to reapproximate th e dermis, and roger used to approximate the skin. Xeroform followed by steril e dressing was applied. Sponge and needle counts were correct. The patient was taken to the recovery room in stable condition. The patient tolerated the procedure well. She was able to move both lower extre mities and had stable monitoring. Dr. Matthew Draper was present through the entire portion of the case and performe d the posterior procedure with the assistance of a resident. Staff Physician Signature (This report will become an official part of the medical record when reviewed an d SIGNED by the staff physician.) Nanda Draper M.D. / N-Trig [id number] p cc: Nanda Draper M.D. MECHANIC documented in this encounter Plan of Treatment Not on filedocumented as of this encounter Procedures Comments Procedure Name Priority Date/Time Associated Diagnosis PTT (APTT) Routine 07/13/2009 4:15 AM MOLD MECHANIC PROTIME INR (PT) Routine 07/13/2009 4:15 AM MOLD MECHANIC CBC Routine 07/13/2009 4:15 AM MOLD MECHANIC BASIC METABOLIC PANEL Routine 07/13/2009 4:15 AM MOLD MECHANIC PTT (APTT) Routine 07/12/2009 4:30 AM MOLD MECHANIC PROTIME INR (PT) Routine 07/12/2009 4:30 AM MOLD MECHANIC CBC Routine 07/12/2009 4:30 AM MOLD MECHANIC BASIC METABOLIC PANEL Routine 07/12/2009 4:30 AM MOLD MECHANIC PTT (APTT) Routine 07/11/2009 4:53 AM MOLD MECHANIC PROTIME INR (PT) Routine 07/11/2009 4:53 AM MOLD MECHANIC CBC Routine 07/11/2009 4:53 AM MOLD MECHANIC BASIC METABOLIC PANEL Routine 07/11/2009 4:53 AM MOLD MECHANIC PTT (APTT) Routine 07/10/2009 4:02 AM MOLD MECHANIC PROTIME INR (PT) Routine 07/10/2009 4:02 AM MOLD MECHANIC CBC Routine 07/10/2009 4:02 AM MOLD MECHANIC BASIC METABOLIC PANEL Routine 07/10/2009 4:02 AM MOLD MECHANIC L SPINE 1 VIEW STAT 07/09/2009 10:37 AM MOLD MECHANIC MOBILE FLUORO EXAM W FILM STAT 07/09/2009 <60 MIN 9:25 AM MOLD MECHANIC L SPINE 1 VIEW STAT 07/09/2009 8:10 AM MOLD MECHANIC TYPE & CROSSMATCH STAT 07/09/2009 6:21 AM MOLD MECHANIC documented in this encounter Results * PTT (APTT) (07/13/2009 4:15 AM MOLD MECHANIC) APTT 30.8 26.1 - 37.6 SEC [facility] Specimen Blood - Blood Performing Organization Address [facility] Phone Number [facility] * PROTIME INR (PT) (07/13/2009 4:15 AM MOLD MECHANIC) INR 1.2 (H) 0.9 - 1.1 [facility] RES[facility] Specimen Blood - Blood Performing Organization Address City/[facility] Phone Number [facility] * BASIC METABOLIC PANEL (07/13/2009 4:15 AM MOLD MECHANIC) Sodium 134 (L) 137 - 147 MMOL/L [facility] Potassium 3.9 3.5 - 5.1 MMOL/L [facility] Chloride 101 98 - 110 MMOL/L [facility] CO2 27 21 - 30 MMOL/L [facility] Anion Gap 6 (L) 8 - 12 [facility] Glucose 101 (H) 70 - 100 MG/DL [facility] Blood Urea 3 (L) 8 - 20 MG/DL [facility] Nitrogen Creatinine 0.44 0.4 - 1.00 MG/DL [facility] Calcium 8.2 (L) 9.0 - 11.0 MG/DL [facility] RESULTS eGFR Non >60 >60 ML/MIN/1.73 SQM [facility] Comment: [place] The eGFR is not validated for use in drug dosing adjustments.Continue to use estimated creatinine clearance per dosing reference text.Please contact the Clinical Pharmacist for questions. eGFR >60 >60 ML/MIN/1.73 SQM [facility] Jamaican Comment: The eGFR is not validated for use in drug dosing adjustments.Continue to use estimated creatinine clearance per dosing reference text.Please contact the Clinical Pharmacist for questions. Specimen Blood - Blood Performing Organization Address [facility] Phone Number [facility] * CBC (07/13/2009 4:15 AM MOLD MECHANIC) White Blood 6.0 4.5 - 11.0 K/UL [facility] RESULTS Cells RBC 3.60 (L) 4.0 - 5.0 M/UL [facility] Hemoglobin 11.4 (L) 12.0 - 15.0 GM/DL [facility] Hematocrit 33.3 (L) 36 - 45 % [facility] MCV 93.0 80 - 100 FL [facility] MCH 32.0 26 - 34 PG [facility] MCHC 34.0 32.0 - 36.0 G/DL [facility] RDW 13.2 11 - 15 % [facility] Platelet Count 266 150 - 400 K/UL [facility] MPV 8.0 7 - 11 FL [facility] RESULTS Specimen Blood - Blood Performing Organization Address [facility] Phone Number [facility] * PTT (APTT) (07/12/2009 4:30 AM MOLD MECHANIC) APTT 30.7 26.1 - 37.6 SEC [facility] RESULTS Specimen Blood - Blood Performing Organization Address City/[facility]/Zipcode Phone Number [facility] RESULTS * PROTIME INR (PT) (07/12/2009 4:30 AM MOLD MECHANIC) INR 1.2 (H) 0.9 - 1.1 [facility] RESULTS Specimen Blood - Blood Performing Organization Address [facility] Phone Number [facility] * BASIC METABOLIC PANEL (07/12/2009 4:30 AM MOLD MECHANIC) Sodium 132 (L) 137 - 147 MMOL/L [facility] Potassium 4.5 3.5 - 5.1 MMOL/L [facility] Chloride 102 98 - 110 MMOL/L [facility] CO2 25 21 - 30 MMOL/L [facility] Anion Gap 5 (L) 8 - 12 [facility] Glucose 98 70 - 100 MG/DL [facility] Blood Urea 4 (L) 8 - 20 MG/DL [facility] RESULTS Nitrogen Creatinine 0.48 0.4 - 1.00 MG/DL [facility]ULTS Calcium 7.6 (L) 9.0 - 11.0 MG/DL [facility] RESULTS eGFR Non >60 >60 ML/MIN/1.73 SQM [facility] Comment: [place] The eGFR is not validated for use in drug dosing adjustments.Continue to use estimated creatinine clearance per dosing reference text.Please contact the Clinical Pharmacist for questions. eGFR >60 >60 ML/MIN/1.73 SQM [facility] RESULTS [place] Comment: The eGFR is not validated for use in drug dosing adjustments.Continue to use estimated creatinine clearance per dosing reference text.Please contact the Clinical Pharmacist for questions. Specimen Blood - Blood Performing Organization Address City/[facility] Phone Number [facility] * CBC (07/12/2009 4:30 AM MOLD MECHANIC) White Blood 8.5 4.5 - 11.0 K/UL [facility] RESULTS Cells RBC 3.30 (L) 4.0 - 5.0 M/UL [facility]ULTS Hemoglobin 10.3 (L) 12.0 - 15.0 GM/DL [facility]ULTS Hematocrit 29.8 (L) 36 - 45 % [facility] MCV 92.0 80 - 100 FL [facility] RESULTS MCH 32.0 26 - 34 PG [facility] RESULTS MCHC 34.0 32.0 - 36.0 G/DL [facility]ULTS RDW 13.1 11 - 15 % [facility] RESULTS Platelet Count 192 150 - 400 K/UL [facility] RESULTS MPV 8.0 7 - 11 FL [facility] RESULTS Specimen Blood - Blood Performing Organization Address [facility] Phone Number [facility] * PTT (APTT) (07/11/2009 4:53 AM MOLD MECHANIC) APTT 30.8 26.1 - 37.6 SEC [facility] RESULTS Specimen Blood - Blood Performing Organization Address City/[facility] Phone Number [facility] * PROTIME INR (PT) (07/11/2009 4:53 AM MOLD MECHANIC) INR 1.2 (H) 0.9 - 1.1 [facility] RESULTS Specimen Blood - Blood Performing Organization Address [facility] Phone Number [facility] * BASIC METABOLIC PANEL (07/11/2009 4:53 AM MOLD MECHANIC) Sodium 133 (L) 137 - 147 MMOL/L [facility] RESULTS Potassium 4.1 3.5 - 5.1 MMOL/L [facility] Chloride 103 98 - 110 MMOL/L [facility] CO2 25 21 - 30 MMOL/L [facility] RESULTS Anion Gap 5 (L) 8 - 12 [facility] RESULTS Glucose 103 (H) 70 - 100 MG/DL [facility] RESULTS Blood Urea 4 (L) 8 - 20 MG/DL [facility] RESULTS Nitrogen Creatinine 0.48 0.4 - 1.00 MG/DL [facility] RESULTS Calcium 7.5 (L) 9.0 - 11.0 MG/DL [facility] RESULTS eGFR Non >60 >60 ML/MIN/1.73 SQM [facility] RESULTS Comment: [place] The eGFR is not validated for use in drug dosing adjustments.Continue to use estimated creatinine clearance per dosing reference text.Please contact the Clinical Pharmacist for questions. eGFR >60 >60 ML/MIN/1.73 SQM [facility] RESULTS [place] Comment: The eGFR is not validated for use in drug dosing adjustments.Continue to use estimated creatinine clearance per dosing reference text.Please contact the Clinical Pharmacist for questions. Specimen Blood - Blood Performing Organization Address City/State/Zipcode Phone Number [facility] RESULTS * CBC (07/11/2009 4:53 AM MOLD MECHANIC) White Blood 9.0 4.5 - 11.0 K/UL [facility] RESULTS Cells RBC 3.30 (L) 4.0 - 5.0 M/UL [facility] RESULTS Hemoglobin 10.3 (L) 12.0 - 15.0 GM/DL [facility] RESULTS Hematocrit 30.1 (L) 36 - 45 % [facility] RESULTS MCV 92.0 80 - 100 FL [facility] RESULTS MCH 31.0 26 - 34 PG [facility] RESULTS MCHC 34.0 32.0 - 36.0 G/DL [facility] RESULTS RDW 13.0 11 - 15 % [facility] RESULTS Platelet Count 170 150 - 400 K/UL [facility] RESULTS MPV 8.0 7 - 11 FL [facility] RESULTS Specimen Blood - Blood Performing Organization Address City/State/Zipcode Phone Number [facility] RESULTS * PTT (APTT) (07/10/2009 4:02 AM MOLD MECHANIC) APTT 28.4 26.1 - 37.6 SEC [facility] RESULTS Specimen Blood - Blood Performing Organization Address City/State/Zipcode Phone Number [facility] RESULTS * PROTIME INR (PT) (07/10/2009 4:02 AM MOLD MECHANIC) INR 1.0 0.9 - 1.1 [facility] RESULTS Specimen Blood - Blood Performing Organization Address [facility] Phone Number [facility] * BASIC METABOLIC PANEL (07/10/2009 4:02 AM MOLD MECHANIC) Sodium 138 137 - 147 MMOL/L [facility] RESULTS Potassium 3.4 (L) 3.5 - 5.1 MMOL/L [facility]ULTS Chloride 104 98 - 110 MMOL/L [facility] RES[facility] CO2 25 21 - 30 MMOL/L [facility] RES[facility] Anion Gap 9 8 - 12 [facility] RES[facility] Glucose 88 70 - 100 MG/DL [facility] RESULTS Blood Urea 2 (L) 8 - 20 MG/DL [facility] RESULTS Nitrogen Creatinine 0.50 0.4 - 1.00 MG/DL [facility] RESULTS Calcium 7.6 (L) 9.0 - 11.0 MG/DL [facility] RESULTS eGFR Non >60 >60 ML/MIN/1.73 SQM [facility] RESULTS Comment: [place] The eGFR is not validated for use in drug dosing adjustments.Continue to use estimated creatinine clearance per dosing reference text.Please contact the Clinical Pharmacist for questions. eGFR >60 >60 ML/MIN/1.73 SQM [facility] RESULTS [place] Comment: The eGFR is not validated for use in drug dosing adjustments.Continue to use estimated creatinine clearance per dosing reference text.Please contact the Clinical Pharmacist for questions. Specimen Blood - Blood Performing Organization Address [facility] Phone Number [facility] RESULTS * CBC (07/10/2009 4:02 AM MOLD MECHANIC) Pathologist [facility] White Blood 7.0 4.5 - 11.0 K/UL [facility] RESULTS Cells RBC 3.40 (L) 4.0 - 5.0 M/UL [facility] RESULTS Hemoglobin 10.7 (L) 12.0 - 15.0 GM/DL [facility] RESULTS Hematocrit 30.9 (L) 36 - 45 % [facility] RESULTS MCV 91.0 80 - 100 FL [facility] RESULTS MCH 32.0 26 - 34 PG [facility] RESULTS MCHC 35.0 32.0 - 36.0 G/DL [facility] RESULTS RDW 13.1 11 - 15 % [facility] RESULTS Platelet Count 204 150 - 400 K/UL [facility] RESULTS MPV 8.0 7 - 11 FL [facility] RESULTS Specimen Blood - Blood Performing Organization Address [facility] Phone Number [facility] RESULTS * L SPINE 1 VIEW (07/09/2009 10:37 AM MOLD MECHANIC) Exam Status [facility] SIGNED REPORT Exam EXAM: [facility] LUMBAR SPINE ONE VIEW Indication: Surgery FINDINGS: Dr. Shore has personally reviewed these images and formulated the interpretations and opinions expressed in this report. Two surgical instruments are seen adjacent to the inferior articulating facet of L5. Impression L-SPINE 1 VIEWIMPRESSION: [facility] INTRAOPERATIVE LOCALIZATION FILM DESCRIBED. Residents: NICK GROVES Electronically signed on: Jul 09 2009 12:04PM by MOE SHORE M.D. PACS [facility] Specimen Impressions Performed At L-SPINE 1 VIEWIMPRESSION: [facility] INTRAOPERATIVE LOCALIZATION FILM DESCRIBED. Residents: NICK GROVES Electronically signed on: Jul 09 2009 12:04PM by OME SHORE M.D. Narrative Performed At EXAM: [facility] LUMBAR SPINE ONE VIEW Indication: Surgery FINDINGS: Dr. Shore has personally reviewed these images and formulated the interpretations and opinions expressed in this report. Two surgical instruments are seen adjacent to the inferior articulating facet of L5. Performing Organization Address City/State/[facility] Phone Number [facility] * MOBILE FLUORO EXAM W FILM <60 MIN (07/09/2009 9:25 AM MOLD MECHANIC) Exam Status [facility] SIGNED REPORT Exam EXAM: [facility] MOBILE FLUOROSCOPY WITH IMAGES Clinical Indication: Surgery TECHNIQUE/FINDINGS: Dr. Sloan personally reviewed these images and formulated the interpretations and opinions expressed in this report. Mobile fluoroscopy was provided for Dr. Draper. Fluoroscopic spot films demonstrate AP and lateral views of the lumbar spine. Interbody fusion material is seen between L5-S1. Total fluoro time: 0.16 minutes Impression MOBILE FLUORO W FILMS < 60 [facility] MINIMPRESSION: MOBILE FLUOROSCOPY FOR SURGERY Residents: LINDSAY BAXTER Electronically signed on: Jul 09 [id number] by DIANELYS HARTLEY M.D. [facility]ACS [facility] Specimen Impressions Performed At MOBILE FLUORO W FILMS < 60 MINIMPRESSION: [facility] MOBILE FLUOROSCOPY FOR SURGERY Residents: LINDSAY BAXTER Electronically signed on: Jul 09 20093:[id number] by DIANELYS HARTLEY M.D. Narrative Performed At EXAM: [facility] MOBILE FLUOROSCOPY WITH IMAGES Clinical Indication: Surgery TECHNIQUE/FINDINGS: Dr. Sloan personally reviewed these images and formulated the interpretations and opinions expressed in this report. Mobile fluoroscopy was provided for Dr. Draper. Fluoroscopic spot films demonstrate AP and lateral views of the lumbar spine. Interbody fusion material is seen between L5-S1. Total fluoro time: 0.16 minutes Performing Organization Address [facility] Phone Number [facility] * L SPINE 1 VIEW (07/09/2009 8:10 AM MOLD MECHANIC) Exam Status [facility] SIGNED REPORT Exam EXAM: [facility] PROCEDURE: L-SPINE 1 VIEW Indication: Surgery FINDINGS: Dr. Kulkarni has personally reviewed these images and formulated the interpretations and opinions expressed in this report. Comparison is made with previous intraoperative radiograph at 1030. Interval placement of bilateral pedicle and alar screws at L5 and S1. Interbody fusion plug is seen at L5-S1. Surgical roger are seen to the left of midline. Impression L-SPINE 1 VIEWIMPRESSION: [facility] INTRAOPERATIVE LOCALIZATION DESCRIBED. Residents: NICK GROVES Electronically signed on: Jul 09 20096:[id number] by NEHEMIAS KULKARNI M.D. PACS [facility] Specimen Impressions Performed At L-SPINE 1 VIEWIMPRESSION: [facility] INTRAOPERATIVE LOCALIZATION DESCRIBED. Residents: NICK GROVES Electronically signed on: Jul 09 20096:[id number] by NEHEMIAS KULKARNI M.D. Narrative Performed At EXAM: [facility] PROCEDURE: L-SPINE 1 VIEW Indication: Surgery FINDINGS: Dr. Kulkarni has personally reviewed these images and formulated the interpretations and opinions expressed in this report. Comparison is made with previous intraoperative radiograph at 1030. Interval placement of bilateral pedicle and alar screws at L5 and S1. Interbody fusion plug is seen at L5-S1. Surgical roger are seen to the left of midline. Performing Organization Address [facility] Phone Number [facility] * TYPE & CROSSMATCH (07/09/2009 6:21 AM MOLD MECHANIC) Units Ordered 0 [facility] RES[facility] Crossmatch 07/12/2009 [facility] RES[facility] Expires Record Check FOUND [facility] RESULTS ABO/RH(D) A POS LAB RESULTS Antibody Screen NEG LAB RESULTS Specimen Blood - Blood Performing Organization Address City/State/Zipcode Phone Number [facility] RESULTS documented in this encounter Visit Diagnoses Diagnosis Pain Generalized pain documented in this encounter Administered Medications Action Date Dose Rate Site Medication Order MAR Action 07/12/2009 4:42 AM MOLD MECHANIC 650 mg acetaminophen (TYLENOL) tablet 650 mg Given 650 mg, Oral, EVERY 4 HOURS PRN, Starting Sun07/09/09 at 1554, Until Sun07/14/09 at 1344, Pain, Temp > 38.5 C, TOTAL ACETAMINOPHEN DOSE NOT TO EXCEED 4GM DAILY, 650 mg Given 07/11/2009 10:16 PM MOLD MECHANIC 650 mg Given 07/11/2009 7:19 AM MOLD MECHANIC 07/12/2009 5:05 PM MOLD MECHANIC 0.25 mg alprazolam (XANAX) tablet 0.25 mg Given 0.25 mg, Oral, DAILY PRN, Starting Sun07/09/09 at 1556, Until Sun07/14/09 at 1344, Anxiety 0.25 mg Given 07/11/2009 8:59 AM MOLD MECHANIC 07/10/2009 9:23 AM MOLD MECHANIC 30 mL aluminum/magnesium hydroxide (MAALOX) Given oral suspension 30 mL 30 mL, Oral, EVERY 6 HOURS PRN, Starting Sun07/09/09 at 1552, Until Sun07/14/09 at 1344, Indigestion 07/11/2009 12:00 PM MOLD MECHANIC 10 mg bisacodyl (DULCOLAX) rectal suppository Given 10 mg 10 mg, Rectal, ONCE, 1 dose, 07/11/09 at 1000, May repeat in 30 min if no results Hold for loose stools, 07/10/2009 12:00 PM MOLD MECHANIC 2 g cefazolin (ANCEF) IVP 2 g Given 2 g, Intravenous, EVERY 8 HOURS, 3 doses, First dose on Sun07/09/09 at 2000, Last dose on Sun07/10/09 at 1200, IV PUSH -- Reconstitute EACH 500mg with 5 mL 0.9% NACL, 2 g Given 07/10/2009 4:00 AM MOLD MECHANIC 2 g Given 07/09/2009 8:00 PM MOLD MECHANIC 07/14/2009 9:00 AM MOLD MECHANIC 10 mg cyclobenzaprine (FLEXERIL) tablet 10 mg Given 10 mg, Oral, THREE TIMES DAILY, First dose on Sun07/09/09 at 1700, Until Discontinued 10 mg Given 07/13/2009 9:00 PM MOLD MECHANIC 10 mg Given 07/13/2009 3:00 PM MOLD MECHANIC 07/10/2009 10:21 AM MOLD MECHANIC 25 mg diphenhydrAMINE (BENADRYL) capsule 25 mg Given 25 mg, Oral, EVERY 6 HOURS PRN, Starting Sun07/09/09 at 1553, Until Sun07/14/09 at 1344, Insomnia, Itching 07/11/2009 7:22 AM MOLD MECHANIC 25 mg diphenhydrAMINE (BENADRYL) injection 25 Given mg 25 mg, Intravenous, EVERY 4 HOURS PRN, Starting Sun07/09/09 at 1555, Until Sun07/12/09 at 1105, Itching, Maximum dose 100mg/24 hours. Diphenhydramine is not to be used as a sedative. Hold medication if patient is sedated., 25 mg Given 07/10/2009 8:34 PM MOLD MECHANIC 07/12/2009 9:00 AM MOLD MECHANIC 100 mg docusate (COLACE) capsule 100 mg Given 100 mg, Oral, TWICE DAILY, First dose on Sun07/09/09 at 2100, Until Discontinued 100 mg Given 07/11/2009 9:00 PM MOLD MECHANIC 100 mg Given 07/11/2009 9:00 AM MOLD MECHANIC 07/14/2009 9:00 AM MOLD MECHANIC 100 mg docusate (COLACE) capsule 100 mg Given 100 mg, Oral, TWICE DAILY, First dose on Sun07/13/09 at 0900, Until Discontinued, Give BID at 0900 and 1700. First Choice for Constipation Hold for loose stools, 100 mg Given 07/13/2009 5:00 PM MOLD MECHANIC 100 mg Given 07/13/2009 9:00 AM MOLD MECHANIC 07/11/2009 12:00 PM MOLD MECHANIC 100 mg docusate (COLACE) oral solution 100 mg Given 100 mg, Oral, TWICE DAILY, First dose on Sun07/11/09 at 1000, Until Discontinued, Hold for loose stools, 07/14/2009 9:00 AM MOLD MECHANIC 0.9 mg estrogens, conjugated (PREMARIN) tablet Given 0.9 mg 0.9 mg, Oral, DAILY, First dose on Sun07/09/09 at 1700, Until Discontinued, Please provide educational leaflet from Nursing Teach File and document. If patient needs further education please write order for pharmacy consult., 0.9 mg Given 07/13/2009 9:00 AM MOLD MECHANIC 0.9 mg Given 07/12/2009 9:00 AM MOLD MECHANIC 07/11/2009 7:40 AM MOLD MECHANIC mL/hr fentanyl (SUBLIMAZE) SYSTEMS SOFTWARE DESIGNER 550 mcg/ NS Given - New 55 mL infusion syr (std conc)(premade) Bag Intravenous, SYSTEMS SOFTWARE DESIGNER, Starting Sun07/09/09 at 1700, Until Sun07/11/09 at 0950, SYSTEMS SOFTWARE DESIGNER Dose: 2 ml per dose (Pt. Demand Dose) SYSTEMS SOFTWARE DESIGNER Delay: 6 min (Lock out Interval) SYSTEMS SOFTWARE DESIGNER Basal Rate: 2 ml/h (Continuous Dose) SYSTEMS SOFTWARE DESIGNER 1 Hour Limit: 22 ml (=Basal Rate + (SYSTEMS SOFTWARE DESIGNER Dose x 60min/ SYSTEMS SOFTWARE DESIGNER Delay)) SYSTEMS SOFTWARE DESIGNER Initial Bolus: 4 ml (Loading Dose) If pain not adequately controlled with SYSTEMS SOFTWARE DESIGNER: 1. If pain rating 5/10 give additional bolus of 0 ml, Re-assess in 15 minutes, may repeat bolus ONE time if pain not adequately controlled. 2. Check pump to ensure proper function and appropriate patient utilization 3. If pain still not adequately controlled, contact physician SYSTEMS SOFTWARE DESIGNER Conc=10 mcg/mL--DO NOT REFRIGERATE-- NOTE:This is a HIGH ALERT Medication: MEDICATION DOUBLE CHECK Policy applies, mL/hr Given - New Bag 07/10/2009 7:53 PM MOLD MECHANIC mL/hr Given - New Bag 07/10/2009 3:40 PM MOLD MECHANIC 07/09/2009 3:45 PM MOLD MECHANIC FENTANYL CITRATE IN NS (PF) 550 MCG/55 Given ML IJ SPCA (AcuDose pull) NOW, 1 dose, Sun07/09/09 at 1545, Bharati Pérez: Cabinet Override, Bharati Pérez: Cabinet Override, 07/12/2009 6:48 AM MOLD MECHANIC mL/hr hydromorphone (DILAUDID) SYSTEMS SOFTWARE DESIGNER 11 mg/NS Given - New 55mL infusion syr (std conc)(premade) Bag Intravenous, SYSTEMS SOFTWARE DESIGNER, Starting Sun07/11/09 at 1100, Until Sun07/12/09 at 1105, SYSTEMS SOFTWARE DESIGNER Dose: 2 ml per dose (Pt. Demand Dose) SYSTEMS SOFTWARE DESIGNER Delay: 6 min (Lock out Interval) SYSTEMS SOFTWARE DESIGNER Basal Rate: 1 ml/h (Continuous Dose) SYSTEMS SOFTWARE DESIGNER 1 Hour Limit: 21 ml (=Basal Rate + (SYSTEMS SOFTWARE DESIGNER Dose x 60min/ SYSTEMS SOFTWARE DESIGNER Delay)) SYSTEMS SOFTWARE DESIGNER Initial Bolus: 2 ml (Loading Dose) If pain not adequately controlled with SYSTEMS SOFTWARE DESIGNER: 1. If pain rating 5/10 give additional bolus of 0 ml, Re-assess in 15 minutes, may repeat bolus ONE time if pain not adequately controlled. 2. Check pump to ensure proper function and appropriate patient utilization 3. If pain still not adequately controlled, contact physician SYSTEMS SOFTWARE DESIGNER Conc=0.2 mg/mL--Administer only with SYSTEMS SOFTWARE DESIGNER Pump-- NOTE:This is a HIGH ALERT Medication: MEDICATION DOUBLE CHECK Policy applies, mL/hr Given - New Bag 07/11/2009 9:54 PM MOLD MECHANIC mL/hr Given - New Bag 07/11/2009 10:46 AM MOLD MECHANIC 07/14/2009 7:00 AM MOLD MECHANIC [address] (PREVACID) capsule 30 mg Given 30 mg, Oral, DAILY, First dose on Sun07/09/09 at 1700, Until Discontinued, Give 30 min prior to meal, 30 mg Given 07/13/2009 9:00 AM MOLD MECHANIC 30 mg Given 07/12/2009 7:00 AM MOLD MECHANIC 07/12/2009 9:00 PM MOLD MECHANIC 10 mL milk of magnesia (CONC) oral suspension Given 10 mL 10 mL, Oral, AT BEDTIME DAILY, First dose on Sun07/09/09 at 2100, Until Discontinued, 10 mL CONC=30 mL MOM UNTIL NORMAL BOWEL FUNCTION, THEN QD PRN CONSTIPATION., 10 mL Given 07/11/2009 9:00 PM MOLD MECHANIC 10 mL Given 07/10/2009 9:00 PM MOLD MECHANIC 07/13/2009 9:15 PM MOLD MECHANIC 30 mg morphine IR (MS IR) tablet 15-45 mg Given 15-45 mg, Oral, EVERY 3 HOURS PRN, Starting Sun07/12/09 at 1105, Until Sun07/14/09 at 1344, Pain 30 mg Given 07/13/2009 6:35 PM MOLD MECHANIC 30 mg Given 07/13/2009 12:43 PM MOLD MECHANIC 07/14/2009 9:00 AM MOLD MECHANIC 500,000 Units nystatin (MYCOSTATIN) oral suspension Given 500,000 Units 500,000 Units, Oral, TWICE DAILY, First dose on Sun07/10/09 at 1315, Until Discontinued 500,000 Units Given 07/13/2009 9:00 PM MOLD MECHANIC 500,000 Units Given 07/13/2009 9:00 AM MOLD MECHANIC 07/13/2009 6:36 PM MOLD MECHANIC 2 lozenges phenol/menthol (CEPASTAT) lozenge 1 Given Lozenge 1 lozenge, Oral, EVERY 1 HOUR PRN, Starting Sun07/10/09 at 0917, Until Sun07/14/09 at 1344, Throat Pain 1 lozenge Given 07/10/2009 9:26 AM MOLD MECHANIC 07/10/2009 9:30 AM MOLD MECHANIC 1 Dose potassium chloride SR (K-DUR) 20 mEq 60 Given mEq, aluminum/magnesium hydroxide (MAALOX) 30 mL combination Oral, ONCE, 1 dose, 07/10/09 at 0930 07/11/2009 12:00 PM MOLD MECHANIC 10 mL senna/docusate (SENOKOT-S) solution 10 Given mL 10 mL, Per NG tube, TWICE DAILY, First dose on Sun07/11/09 at 1100, Until Discontinued, Hold for loose stools, 07/12/2009 9:00 AM MOLD MECHANIC 1 tablet senna/docusate (SENOKOT-S) tablet 1 Tab Given 1 tablet, Oral, TWICE DAILY, First dose on Sun07/09/09 at 2100, Until Discontinued, Hold for loose stools, 1 tablet Given 07/11/2009 9:00 PM MOLD MECHANIC 1 tablet Given 07/11/2009 9:00 AM MOLD MECHANIC 07/12/2009 3:17 AM MOLD MECHANIC 80 mL/hr sodium chloride 0.9% with KCl 20mEq/L Given - New infusion Bag 1,000 mL, Intravenous, at 80 mL/hr, CONTINUOUS, Starting Sun07/09/09 at 1600, Until Sun07/12/09 at 1105, DO_NOT_REFRIGERATE, 80 mL/hr Given - New Bag 07/11/2009 4:12 PM MOLD MECHANIC 80 mL/hr Given - New Bag 07/11/2009 4:20 AM MOLD MECHANIC 07/14/2009 8:00 AM MOLD MECHANIC 10 mL sodium chloride PF 0.9% flush 10 mL Given 10 mL, Injection, FLUSH THREE TIMES DAILY, First dose on Sun07/13/09 at 0800, Until Discontinued, Per SOP., 10 mL Given 07/13/2009 10:00 PM MOLD MECHANIC 2.5 mL Given 07/13/2009 4:00 PM MOLD MECHANIC 07/10/2009 7:53 PM MOLD MECHANIC 15 mg temazepam (RESTORIL) capsule 15 mg Given 15 mg, Oral, AT BEDTIME PRN, Starting Sun07/09/09 at 1552, Until 07/14/09 at 1344, Insomnia 15 mg Given 07/10/2009 3:57 AM MOLD MECHANIC documented in this encounter
--- OUTSIDE RECORDS SUMMARY | 2018-12-10 07:08 | XMS REPORT | Encounter Summary ---
Author Author [facility] Organization [facility] Address Unknown Phone Unavailable Care Team Providers Care Stretch Press Operator Name Role Phone Ian Hackett MD PCP Encounter Details Care Team Description Date Type Department Carrington Draper MD [address] [place] [address] 07/29/2009 Hospital [facility] Encounter Health System [address] [address] Social History Date Tobacco Use [...]
--- OUTSIDE RECORDS SUMMARY | 2018-12-10 07:08 | XMS REPORT | Encounter Summary ---
Author Author [facility] Organization [facility] Address Unknown Phone Unavailable Care Team Providers Care Studio Data Analyst Name Role Phone Ian Hackett MD PCP Encounter Details Care Team Description Date Type Department Carrington Draper MD [address] [facility] [place], [place] [phone] 07/29/2009 Hospital RADIOLOGY SPINE Encounter [address] [place] [address] Social History Date Tobacco Use Types Packs/Day [...] Diagnosis L SPINE AP & LATERAL Routine 07/29/2009 Lumbago 10:25 AM DESPATCHING AND RECEIVING CLERK documented in this encounter Results * L SPINE AP & LATERAL (07/29/2009 10:25 AM DESPATCHING AND RECEIVING CLERK) Exam Status [facility] SIGNED REPORT Exam EXAM: [facility] LUMBAR SPINE - AP AND LATERAL: Clinical history: Back pain. FINDINGS: There is placement of pedicle screws and paraspinous rods transfixing L5 and S1.Interbody fusion is seen in the disc space between L5 and S1. Impression L SPINE, AP & [facility] LATERALIMPRESSION: POSTERIOR SPINAL FUSION AT L5-S1 DESCRIBED.THERE IS NO FRACTURE OR LOOSENING OF HARDWARE.NO GROSS CHANGES IN BONY ALIGNMENT. Electronically signed on: 2009 10:58AM by MOE DAVIDSON M.D. PACS [facility] Specimen Impressions Performed At L SPINE, AP & LATERALIMPRESSION: [facility] POSTERIOR SPINAL FUSION AT L5-S1 DESCRIBED.THERE IS NO FRACTURE OR LOOSENING OF HARDWARE.NO GROSS CHANGES IN BONY ALIGNMENT. Electronically signed on: 2009 10:58AM by MOE DAVIDSON M.D. Narrative Performed At EXAM: [facility] LUMBAR SPINE - AP AND LATERAL: Clinical history: Back pain. FINDINGS: There is placement of pedicle screws and paraspinous rods transfixing L5 and S1.Interbody fusion is seen in the disc space between L5 and S1. Performing Organization Address City/State/Zipcode Phone Number [facility] documented in this encounter Visit Diagnoses Diagnosis Lumbago documented in this encounter
--- OUTSIDE RECORDS SUMMARY | 2018-12-10 07:09 | XMS REPORT | Encounter Summary ---
Author Author [facility] Address Unknown Phone Unavailable Care Team Providers Care Literacy Specialist Name Role Phone Ian Hackett MD PCP Encounter Details Care Team Description Date Type Department Viridiana Pablo MD [address] [place], [place] [phone] 11/05/2008 Hospital RADIOLOGY SPINE Encounter [address] [place] [address] Social History Date Tobacco Use Types Packs/Day [...] Date End Date Medication Sig Dispensed Refills 07/02/2007 06/21/2009 PREMARIN PO Take 0.9 mg 0 by mouth Daily. 07/02/2007 06/21/2009 ZANAFLEX PO Take 4 mg by 0 mouth At Bedtime Daily. 07/02/2007 07/09/2009 TYLENOL-CODEINE #3 PO Take 1 Tab by 0 mouth Daily as needed. documented as of this encounter Procedure Notes * Viridiana Pablo MD - 11/05/2008 12:00 AM CDT ANESTHESIA PROCEDURE REPORT PREPROCEDURE DIAGNOSIS: Low back pain. Lumbar radiculopathy. Herniated disk with L5 and S1 radicular pain to the right lower extremity. POSTPROCEDURE DIAGNOSIS: Same. REFERRING PHYSICIAN: Nanda Draper M.D. SURGEON: Viridiana Pablo MD ANESTHESIA: Local. COMPLICATIONS: None. PROCEDURE: Right L5 and S1 selective nerve root injection under fluoroscopic gu idance INTERIM HISTORY: The patient returns today after last being seen about 2 weeks ago after her last injection. She does report about 40-50 percent improvement i n her pain. Pain is starting to gradually return. She is here today for consid eration of repeat injection. Risks and benefits were discussed. She agrees to proceed. DESCRIPTION OF PROCEDURE: Written informed consent was obtained. The patient w as taken to the procedure room, placed in the prone position, and standard instr uments were applied. The lumbosacral area was prepped with Betadine solution an d draped in sterile fashion. The L5-S1 foraminal openings were identified. C-a rm was obliqued towards the right until the L5-S1 and S1 foraminal openings were identified. A 22-gauge, 5-inch needle was guided into each of the foraminal op enings. Once adequate depth was obtained, negative aspiration was confirmed fro m CSF and heme, 1 mL of contrast was injected with adequate spread being noted a long the nerve root as well as along the epidural space. No vascular pattern wa s noted. This was followed by injection of 1.5 mL of 0.25 percent bupivacaine a nd 40 mg of Depo-Medrol slowly and incrementally and the needle was removed. Th e patient tolerated the procedure well. No complications noted. She was taken to the recovery area where after observation for 20-30 minutes, sh e was discharged in a stable condition and instructed to follow up as needed in the future. Viridiana aPblo MD [facility] Department of Anesthesiology (This report will become an official part of the medical record when signed by t staff physician.) TWK/MedQ /[id number] cc: MD Nanda Clarke M.D. Talal W Khan, MD documented in this encounter Plan of Treatment Not on filedocumented as of this encounter Procedures Comments Procedure Name Priority Date/Time Associated Diagnosis MOBILE FLUORO EXAM <60 Routine 11/05/2008 Spinal Stenosis of Lumbar [facility] 11:11 AM CDT Region Thoracic or Lumbosacral Neuritis or Radiculitis, Unspecified documented in this encounter Results * MOBILE FLUORO EXAM <60 [facility] (11/05/2008 11:11 AM CDT) Exam Status [facility] SIGNED REPORT Exam MOBILE FLUORO EXAM. [facility] History: 33 -year-old female with intraoperative localization. FINDINGS: Dr. Jones has personally reviewed these images and formulated the interpretations and opinions expressed in this report 35 seconds of fluoroscopic time was utilized for the purposes of intraoperative localization. Five spot images demonstrate needle and contrast overlying the region of the lower lumbar spine. Impression MOBILE FLUORO EXAM <60 MIN DX [facility] SEE ABOVE. PACS [facility] Specimen Impressions Performed At MOBILE FLUORO EXAM <60 MIN DX [facility] SEE ABOVE. Narrative Performed At MOBILE FLUORO EXAM. [facility] History: 33 -year-old female with intraoperative localization. FINDINGS: Dr. Jones has personally reviewed these images and formulated the interpretations and opinions expressed in this report 35 seconds of fluoroscopic time was utilized for the purposes of intraoperative localization. Five spot images demonstrate needle and contrast overlying the region of the lower lumbar spine. Performing Organization Address City/State/Zipcode Phone Number [facility] documented in this encounter Visit Diagnoses Diagnosis Spinal stenosis, lumbar region, without neurogenic claudication Thoracic or lumbosacral neuritis or radiculitis, unspecified documented in this encounter
--- OUTSIDE RECORDS SUMMARY | 2018-12-10 07:09 | XMS REPORT | Encounter Summary ---
Author Author [facility] Organization [facility] Address Unknown Phone Unavailable Care Team Providers Care Unit Receptionist Name Role Phone Ian Hackett MD PCP Encounter Details Care Team Description Date Type Department Carrington Draper MD [address] [facility] [place], [place] [phone] 06/21/2009 Hospital Same Day Surgery Encounter [address] [place], [place] [id number] Social History Date Tobacco Use Types Packs/Day [...] 10 mg tablet mouth Three Times Daily. 07/14/2009 hydrocodone/acetaminophen Take 2 Tabs 0 ,+, (LORTAB) 7.5/500 mg by mouth tablet Every 4-6 Hours as needed for Pain. 07/14/[address] Take 1 Tab by 0 (VOLTAREN) 75 mg tablet mouth Every 12 Hours. 07/02/2007 07/09/2009 TYLENOL-CODEINE #3 PO Take 1 Tab by 0 mouth Daily as needed. documented as of this encounter Plan of Treatment Not on filedocumented as of this encounter Procedures Comments Procedure Name Priority Date/Time Associated Diagnosis URINALYSIS, MICROSCOPIC Routine 06/21/2009 Other Symptoms Referable 12:48 PM TUBER MACHINE OPERATOR to Back URINALYSIS DIPSTICK Routine 06/21/2009 Other Symptoms Referable 12:48 PM TUBER MACHINE OPERATOR to Back PTT (APTT) Routine 06/21/2009 Other Symptoms Referable 12:47 PM TUBER MACHINE OPERATOR to Back PROTIME INR (PT) Routine 06/21/2009 Other Symptoms Referable 12:47 PM TUBER MACHINE OPERATOR to Back CBC Routine 06/21/2009 Other Symptoms Referable 12:47 PM TUBER MACHINE OPERATOR to Back TYPE & SCREEN (NOT Routine 06/21/2009 Other Symptoms Referable CROSSMATCH ELIGIBLE) 12:47 PM TUBER MACHINE OPERATOR to Back COMPREHENSIVE METABOLIC Routine 06/21/2009 Other Symptoms Referable PANEL 12:47 PM TUBER MACHINE OPERATOR to Back documented in this encounter Results * URINALYSIS, MICROSCOPIC (06/21/2009 12:48 PM TUBER MACHINE OPERATOR) WBCs,UA 0-2 0 - 2 /HPF [facility] RBCs,UA NONE 0 - 12 /HPF [facility] MucousUA TRACE [facility] Squamous 2-5 [facility] Epithelial Cells Hyaline Cast NONE [facility] Specimen Urine - Urine Performing Organization Address City/State/Zipcode Phone Number [facility] * URINALYSIS DIPSTICK (06/21/2009 12:48 PM TUBER MACHINE OPERATOR) Color,UA YELLOW [facility] Turbidity,UA CLEAR CLEAR-CLEAR [facility] Specific 1.018 1.003 - 1.035 [facility] [place]-Urine pH,UA 7.5 4.6 - 8.0 [facility] Protein,UA NEG NEG-NEG [facility] Glucose,UA NEG NEG-NEG [facility] Ketones,UA NEG NEG-NEG [facility] Bilirubin,UA NEG NEG-NEG [facility] Blood,UA NEG NEG-NEG [facility] Urobilinogen,UA NORMAL NORM-NORMAL [facility] Nitrite,UA NEG NEG-NEG [facility] Leukocytes,UA NEG NEG-NEG [facility] Specimen Urine - Urine Performing Organization Address [facility] Phone Number [facility] * TYPE & SCREEN (NOT CROSSMATCH ELIGIBLE) (06/21/2009 12:47 PM TUBER MACHINE OPERATOR) ABO/RH(D) A POS [facility] Antibody Screen NEG [facility] Specimen Blood, venous - Blood Performing Organization Address [facility] Phone Number [facility] * PROTIME INR (PT) (06/21/2009 12:47 PM TUBER MACHINE OPERATOR) INR 1.0 0.9 - 1.1 [facility] Specimen Blood - Blood Performing Organization Address [facility] Phone Number [facility] * PTT (APTT) (06/21/2009 12:47 PM TUBER MACHINE OPERATOR) APTT 29.9 26.1 - 37.6 SEC [facility] Specimen Blood - Blood Performing Organization Address [facility] Phone Number [facility] * COMPREHENSIVE METABOLIC PANEL (06/21/2009 12:47 PM TUBER MACHINE OPERATOR) Sodium 138 137 - 147 MMOL/L [facility] Potassium 3.4 (L) 3.5 - 5.1 MMOL/L [facility] Chloride 105 98 - 110 MMOL/L [facility] Glucose 90 70 - 100 MG/DL [facility] Blood Urea 8 8 - 20 MG/DL [facility] Nitrogen Creatinine 0.58 0.4 - 1.00 MG/DL [facility] Calcium 9.4 9.0 - 11.0 MG/DL [facility] Total Protein 7.0 6.0 - 8.0 G/DL [facility] Total Bilirubin 0.6 0.3 - 1.2 MG/DL [facility] Albumin 3.7 3.5 - 5.0 G/DL [facility] Alk Phosphatase 65 25 - 110 U/L [facility] AST (SGOT) 29 7 - 40 U/L [facility] CO2 24 21 - 30 MMOL/L [facility] ALT (SGPT) 49 7 - 56 U/L [facility] Anion Gap 9 8 - 12 [facility] eGFR Non >60 >60 ML/MIN/1.73 SQM [facility] Comment: [place]an The eGFR is not validated for use in drug dosing adjustments.Continue to use estimated creatinine clearance per dosing reference text.Please contact the Clinical Pharmacist for questions. eGFR >60 >60 ML/MIN/1.73 SQM [facility] [place]an Comment: The eGFR is not validated for use in drug dosing adjustments.Continue to use estimated creatinine clearance per dosing reference text.Please contact the Clinical Pharmacist for questions. Specimen Blood - Blood Performing Organization Address City/State/Zipcode Phone Number [facility] * CBC (06/21/2009 12:47 PM TUBER MACHINE OPERATOR) White Blood 9.4 4.5 - 11.0 K/UL [facility] Cells RBC 4.70 4.0 - 5.0 M/UL [facility] Hemoglobin 14.9 12.0 - 15.0 GM/DL [facility] Hematocrit 43.1 36 - 45 % [facility] MCV 91.0 80 - 100 FL [facility] MCH 31.0 26 - 34 PG [facility] MCHC 35.0 32.0 - 36.0 G/DL [facility] RDW 13.2 11 - 15 % [facility] Platelet Count 244 150 - 400 K/UL [facility] MPV 8.0 7 - 11 FL [facility] Specimen Blood - Blood Performing Organization Address City/State/Zipcode Phone Number [facility] documented in this encounter Visit Diagnoses Diagnosis Other symptoms referable to back documented in this encounter
--- OUTSIDE RECORDS SUMMARY | 2018-12-10 07:09 | XMS REPORT | Encounter Summary ---
Author Author [facility] Organization [facility] Address Unknown Phone Unavailable Care Team Providers Care Director External Communications Name Role Phone Ian Hackett MD PCP Encounter Details Care Team Description Date Type Department Viridiana Pablo MD [address] [facility] [place], [place] [phone] 01/20/2009 Hospital RADIOLOGY SPINE Encounter [address] [place] [address] Social History Date Tobacco Use Types Packs/Day [...] Associated Diagnosis MOBILE FLUORO EXAM <60 Routine 01/20/2009 Spinal Stenosis of Lumbar [facility] 9:49 AM CDT Region Thoracic or Lumbosacral Neuritis or Radiculitis, Unspecified documented in this encounter Results * MOBILE FLUORO EXAM <60 [facility] (01/20/2009 9:49 AM CDT) Exam Status [facility] SIGNED REPORT Exam MOBILE FLUOROSCOPY [facility] CLINICAL HISTORY: Intra operative exam FINDINGS: Dr. Sloan personally reviewed this report and formulated the interpretations and opinions expressed. 31 of fluoro time was utilized for localization purposes in surgery. Five spot images demonstrate radiopaque needles and contrast material overlying the lower lumbar spine and sacrum. Impression MOBILE FLUORO EXAM <60 MIN DX [facility] MOBILE FLUOROSCOPY DESCRIBED. PACS [facility] Specimen Impressions Performed At MOBILE FLUORO EXAM <60 MIN DX [facility] MOBILE FLUOROSCOPY DESCRIBED. Narrative Performed At MOBILE FLUOROSCOPY [facility] CLINICAL HISTORY: Intra operative exam FINDINGS: Dr. Sloan personally reviewed this report and formulated the interpretations and opinions expressed. 31 of fluoro time was utilized for localization purposes in surgery. Five spot images demonstrate radiopaque needles and contrast material overlying the lower lumbar spine and sacrum. Performing Organization Address City/State/Zipcode Phone Number [facility] documented in this encounter Visit Diagnoses Diagnosis Spinal stenosis, lumbar region, without neurogenic claudication Thoracic or lumbosacral neuritis or radiculitis, unspecified documented in this encounter
--- OUTSIDE RECORDS SUMMARY | 2018-12-10 07:09 | XMS REPORT | Encounter Summary ---
Author Author [facility] Organization [facility] Address Unknown Phone Unavailable Care Team Providers Care Refrigerator Crater Name Role Phone Ian Hackett MD PCP Encounter Details Care Team Description Date Type Department Viridiana Pablo MD [address] [place], [place] [id number] 01/20/[address] [facility] [address] [id number] Social History Date Tobacco Use Types Packs/Day [...] as of this encounter Procedure Notes * Max Pruett MD - 01/20/2009 12:00 AM CDT ANESTHESIA PROCEDURE REPORT PREPROCEDURE DIAGNOSIS: 1. Low back pain. 2. Lumbar radiculopathy. 3. Herniated disk with L5 and S1 radicular pain to the right lower extremity. POSTPROCEDURE DIAGNOSIS: Same. Strategic Accounts Manager: Max Pruett MD REFERRING PHYSICIAN: Nanda Draper M.D. SURGEON: ANESTHESIA: Local. COMPLICATIONS: None. PROCEDURE: Right L5-S1 selective nerve root injection under fluoroscopic aidan crouch. INTERIM HISTORY: The patient presents today after last being seen on 11/05/2008 . She reports about 25-35 percent improvement in her pain from her last injecti on and she is here for her third injection in this series. DESCRIPTION OF PROCEDURE: Written informed consent was obtained. The patient w as taken to the procedure room, placed in the prone position. Standard instrume nts were applied. The lumbosacral area was prepped with Betadine solution and d raped in sterile fashion. L5-S1 foraminal openings were identified. C-arm was obliqued toward the right until L5-S1 and S1 foraminal openings were identified. A 22-gauge 5-inch needle was guided into each of the foraminal openings. Once adequate depth was obtained, negative aspiration was confirmed for CSF and heme, and 1 mL of contrast was injected with adequate spread being noted along the n erve roots as well as along the epidural space. No vascular pattern was noted. This was followed by injection of 1.5 mL of 0.25 percent bupivacaine and 40 mg of Depo-Medrol slowly and incrementally. The needle was then removed. The tl ent tolerated the procedure well. No complications noted. She was taken to the recovery area where after observation for 20-30 minutes, she was di scharged in a stable condition with instructions to follow up as needed in the f uture. Dr Pablo was present for the enitre procedure. Viridiana Pablo MD Shank Skinner Department of Anesthesiology (This report will become an official part of the medical record when signed by [facility] staff physician.) Dictated by: Max Pruett MD DS/MedClarissa /[id number] cc: Viridiana Pablo MD * Max Pruett MD - 01/20/2009 12:00 AM CDT ANESTHESIA PROCEDURE REPORT NO DICTATION Viridiana Pablo MD Shank Skinner Department of Anesthesiology (This report will become an official part of the medical record when signed by [facility] staff physician.) Dictated by: MD BELL Shine/Елена /[id number] cc: Viridiana Pablo MD documented in this encounter Plan of Treatment Not on filedocumented as of this encounter Visit Diagnoses Diagnosis Displacement of intervertebral disc, site unspecified, without myelopathy Thoracic or lumbosacral neuritis or radiculitis, unspecified Degeneration of lumbar or lumbosacral intervertebral disc Lumbosacral spondylosis without myelopathy documented in this encounter
--- OUTSIDE RECORDS SUMMARY | 2018-12-10 07:09 | XMS REPORT | Encounter Summary ---
Author Author [facility] Organization [facility] Address Unknown Phone Unavailable Care Team Providers Care Mcat Tutor Name Role Phone Ian Hackett MD PCP Encounter Details Care Team Description Date Type Department Carrington Draper MD 4000 [place] [address] 06/21/2009 Hospital [facility] Encounter Health System [address] [address] Social History Date Tobacco Use [...] 100,000 units/mL oral mouth Twice suspension Daily. 07/02/2007 07/09/2009 TYLENOL-CODEINE #3 PO Take 1 Tab by 0 mouth Daily as needed. documented as of this encounter Plan of Treatment Not on filedocumented as of this encounter Visit Diagnoses Diagnosis Displacement of lumbar intervertebral disc without myelopathy documented in this encounter
--- OUTSIDE RECORDS SUMMARY | 2018-12-10 07:09 | XMS REPORT | Encounter Summary ---
Author Author [facility] Organization [facility] Address Unknown Phone Unavailable Care Team Providers Care High School Drafting Teacher Name Role Phone Ian Hackett MD PCP Encounter Details Care Team Description Date Type Department Viridiana Pablo MD 4000 [facility] [place], [place] [phone] 04/28/2009 Hospital RADIOLOGY SPINE Encounter [address] [place] [address] Social History Date Tobacco Use Types Packs/Day [...] Associated Diagnosis MOBILE FLUORO EXAM <60 Routine 04/28/2009 Spinal Stenosis of Lumbar [facility] 11:46 AM DROP WIRE OPERATOR Region Thoracic or Lumbosacral Neuritis or Radiculitis, Unspecified documented in this encounter Results * MOBILE FLUORO EXAM <60 [facility] (04/28/2009 11:46 AM DROP WIRE OPERATOR) Exam Status [facility] SIGNED REPORT Exam EXAM: [facility] MOBILE FLUOROSCOPY LESS THAN 60 MINUTES CLINICAL HISTORY: 33-YEAR-OLD FEMALE WITH LUMBOSACRAL NEURITIS FOR LUMBAR AND PIRIFORMIS INJECTION. TECHNIQUE AND FINDINGS: Dr. Carr was the approving radiologist. Mobile fluoroscopy was provided for Dr. Viridiana Pablo during his performance of needle placement A total of 32 seconds of fluoroscopy time was utilized. 6" spot images were obtained with needles overlying the L5 and S1 nerve root sheath on the right as well as overlying the superior portion of the right hip joint. Impression MOBILE FLUORO EXAM <60 MIN [facility] DXIMPRESSION: MOBILE FLUOROSCOPY DURING NEEDLE PLACEMENT, DESCRIBED. Electronically signed on: :04PM by BLANCA CARR M.D. PACS [facility] Specimen Impressions Performed At MOBILE FLUORO EXAM <60 MIN DXIMPRESSION: [facility] MOBILE FLUOROSCOPY DURING NEEDLE PLACEMENT, DESCRIBED. Electronically signed on: :PM by BLANCA CARR M.D. Narrative Performed At EXAM: [facility] MOBILE FLUOROSCOPY LESS THAN 60 MINUTES CLINICAL HISTORY: 33-YEAR-OLD FEMALE WITH LUMBOSACRAL NEURITIS FOR LUMBAR AND PIRIFORMIS INJECTION. TECHNIQUE AND FINDINGS: Dr. Carr was the approving radiologist. Mobile fluoroscopy was provided for Dr. Viridiana Pablo during his performance of needle placement A total of 32 seconds of fluoroscopy time was utilized. 6" spot images were obtained with needles overlying the L5 and S1 nerve root sheath on the right as well as overlying the superior portion of the right hip joint. Performing Organization Address City/State/Zipcode Phone Number [facility] documented in this encounter Visit Diagnoses Diagnosis Spinal stenosis, lumbar region, without neurogenic claudication Thoracic or lumbosacral neuritis or radiculitis, unspecified documented in this encounter
--- OUTSIDE RECORDS SUMMARY | 2018-12-10 07:09 | XMS REPORT | Encounter Summary ---
Author Author [facility] Organization [facility] Address Unknown Phone Unavailable Care Team Providers Care Waste Reduction Coordinator Name Role Phone Ian Hackett MD PCP Encounter Details Care Team Description Date Type Department Viridiana Pablo MD 4000 [place], [place] [phone] 04/28/2009 Hospital [facility] [address] [id number] Social History Date Tobacco Use Types Packs/Day [...] Procedure Notes * Viridiana Pablo MD - 04/28/2009 12:00 AM MACHINE SPRING FORMER ANESTHESIA PROCEDURE REPORT PREPROCEDURE DIAGNOSIS: 1. Low back pain. 2. Herniated disk at L5-S1 with right radicular pain. 3. Possible piriformis syndrome. POSTPROCEDURE DIAGNOSIS: Same. REFERRING PHYSICIAN: Nanda Draper M.D. SURGEON: Viridiana Pablo MD ANESTHESIA: IV sedation. COMPLICATIONS: None. PROCEDURE: Right L5 and S1 selective nerve root injection and right piriformis muscle injection under fluoroscopic guidance. INTERIM HISTORY: The patient returns today after last being seen in December. She had a series of injections at that time that resulted in good, but only temporar y improvement. She has had 2 lumbar diskectomies at L5-S1 with good better and temporary improvement in pain. Continues to have significant discomfort over e last month or 2. The pain has got significantly worse. Denies any bowel or b ladder symptoms or progressive weakness. Has tried medications, exercises, stre tches, but the pain continues to get worse. Is here today for consideration of interventional therapy to help alleviate her pain, so she can continue the exerc ises. Risks and benefits and alternatives were discussed with her and she agree s to proceed. DESCRIPTION OF PROCEDURE: Written informed consent was obtained. The patient w as taken to the procedure room and placed in the prone position. Lumbosacral ar ea was prepped with Betadine solution and draped in sterile fashion. She was se dated with 4 mg of Versed in divided doses. C-arm was obliqued towards the righ t until the right L5-S1 and S1-S2 foraminal openings were identified. A 22-gaug e 5-inch needles were guided into each of the foraminal openings. Once adequate depth was obtained, needle position was verified in the AP and lateral views. Negative aspiration confirmed for CSF or heme, 1 mL of contrast injected with ad equate spread being noted along the respective nerve roots. No vascular pattern was noted. This was followed by injection of 1.5 mL of 0.25 percent bupivacaine and 30 mg of Depo-Medrol at each location and the needle was removed. Thereaf ter, the right piriformis muscle was identified under fluoroscopy. A 22-gauge, 5-inch needle was guided into the midpoint of the muscle with a hip joint. A 2 mL of contrast was injected with adequate spread medial to lateral along the fib ers of piriformis muscle. This was followed by injection of 6 mL of 0.25 percent bupivacaine and 20 mg of Depo-Medrol slowly and incrementally and the needle was removed. The patient tolerated the procedure well and no complications noted. She was taken to the recovery area where after observation to 20-30 minutes, she was discharged in stable condition with instructions to follow up as needed in the future. Viridiana Pablo MD Golf Starter And Ranger Department of Anesthesiology (This report will become an official part of the medical record when signed by t christina staff physician.) TWK/MedQ /[id number] cc: MD Nanda Clarke M.D. Talal W Khan, MD INE SPRING FORMER documented in this encounter Plan of Treatment Not on filedocumented as of this encounter Visit Diagnoses Diagnosis Displacement of intervertebral disc, site unspecified, without myelopathy Thoracic or lumbosacral neuritis or radiculitis, unspecified Lumbosacral spondylosis without myelopathy Degeneration of lumbar or lumbosacral intervertebral disc Myalgia and myositis, unspecified Mylagia and myositis, unspecified documented in this encounter
--- OUTSIDE RECORDS SUMMARY | 2018-12-10 07:09 | XMS REPORT | Encounter Summary ---
Author Author [facility] Organization [facility] Address Unknown Phone Unavailable Care Team Providers Care Sweet Dough Mixer Name Role Phone Ian Hackett MD PCP Encounter Details Care Team Description Date Type Department Viridiana Pablo MD [address] [place], [place] [phone] 11/05/2008 Hospital [facility] Encounter Health System [address] [address] Social History Date Tobacco Use Types Packs/Day [...] or radiculitis, unspecified Lumbosacral spondylosis without myelopathy documented in this encounter
--- OUTSIDE RECORDS SUMMARY | 2018-12-10 07:10 | XMS REPORT | Encounter Summary ---
Author Author [facility] Organization [facility] Address Unknown Phone Unavailable Care Team Providers Care Twister Hand Name Role Phone Ian Hackett MD PCP Encounter Details Care Team Description Date Type Department Carrington Draper MD [address] [place] [address] [phone] 01/24/2008 Hospital Same Day Surgery Encounter [address] [place], [place] [phone] Social History Date Tobacco Use Types Packs/Day [...] as needed. documented as of this encounter Miscellaneous Notes * Operative Report (DICTATED ONLY) - Carrington Draper MD - 02/05/2008 2:32 PM CDT DATE OF OPERATION: 01/24/2008 ROOM #: [id number] SURGEON: Nanda rDaper M.D. INSTRUMENTAL MUSICIAN(S): Jose Ambrose MD PREOPERATIVE DIAGNOSIS: Recurrent herniated nucleus pulposus, right L5-S1. POSTOPERATIVE DIAGNOSIS: Same. OPERATIVE PROCEDURE: Redo microdiscectomy right L5-S1. ANESTHESIA: General. INDICATIONS FOR OPERATIVE PROCEDURE: The patient is a 32-year-old female who pr eviously had undergone a right L5-S1 microdiscectomy. She developed recurrent o nset of right leg pain. She has failed conservative management. An MRI scan co nfirms the current disc protrusion of right L5-S1. Having failed conservative m anagement and explained the alternatives, risks, benefits, and complications, sh e requests surgery. DESCRIPTION OF OPERATIVE PROCEDURE: A preoperative informed consent was obtaine d. She was taken to the operating suite where general anesthesia was obtained. She was provided with preoperative antibiotics. She was placed in knee-chest po sition on the Pinon frame. All bony prominences were well padded. Her back w as then prepped and draped in the sterile fashion. Utilizing the previous scar, a longitudinal incision was made in the midline and dissection carried down the lumbar fashion subperiosteally and spines were exposed on the right. The prior interspace laminotomy of the L5-S1 was identified. Intraoperative x-rays were obtained verifying the appropriate level. The scar tissue was freed up of the p revious laminotomy site. The microscope was sterilely draped and brought to the field. Under microscopic visualization, the laminotomy was slightly enlarged. The scar tissue was retracted and dissected off of the pedicle and retracted me dially revealing a large subligamentous disc herniation. With the nerve root an d sac well protected, an annulotomy was performed and several large free disc fr agments were removed. The disc space was probed to ensure no additional free fr agments. Once discectomy had been completed, the nerve was freed, tethered, and passed out its foramen without further compression. The wound was copiously ir rigated with antibiotic irrigation. Gelfoam was placed over the laminotomy site . The fascia was reapproximate with 0 Vicryl and 2-0 Vicryl to approximate the dermis. An interrupted nylon suture was used to approximate the skin. Plain Ma rcaine 0.5 percent was used to anesthetize the incision. Xeroform followed by s terile dressing was applied. Sponge and needle counts were correct. The patient was taken to the recovery room in a stable condition. She tolerated the procedure well. Staff Physician Signature (This report will become an official part of the medical record when reviewed an d SIGNED by the staff physician.) Nanda Draper M.D. / [id number] p cc: Nanda Draper M.D. documented in this encounter Plan of Treatment Not on filedocumented as of this encounter Procedures Comments Procedure Name Priority Date/Time Associated Diagnosis L SPINE 1 VIEW STAT 01/24/2008 10:47 AM CDT documented in this encounter Results * L SPINE 1 VIEW (01/24/2008 10:47 AM CDT) Exam Status [facility] RES[facility] SIGNED REPORT Exam LATERAL VIEW LUMBAR SPINE [facility] RES[facility] Clinical Indication: Surgical localization Comparison, 07/24/2007 FINDINGS: Dr. Mccarthy has personally reviewed these images and formulated the interpretations and opinions expressed this report. Intraoperative surgical localization film shows surgical instrument posterior to the S1 vertebral body. Impression L-SPINE 1 VIEW [facility] RES[facility] SURGICAL LOCALIZATION DESCRIBED ABOVE PACS [facility] RES[facility] Specimen Performing Organization Address City/State/Zipcode Phone Number [facility] documented in this encounter Visit Diagnoses Not on filedocumented in this encounter
--- OUTSIDE RECORDS SUMMARY | 2018-12-10 07:10 | XMS REPORT | Encounter Summary ---
Author Author [facility] Organization [facility] Address Unknown Phone Unavailable Care Team Providers Care Training Development Director Name Role Phone Ian Hackett MD PCP Encounter Details Care Team Description Date Type Department Carrington Draper MD [address] [place] [address] 10/22/2008 Hospital [facility] Encounter Health System [address] [address] Social History Date Tobacco Use [...] of intervertebral disc, site unspecified, without myelopathy Degeneration of lumbar or lumbosacral intervertebral disc Thoracic or lumbosacral neuritis or radiculitis, unspecified Displacement of lumbar intervertebral disc without myelopathy documented in this encounter
--- OUTSIDE RECORDS SUMMARY | 2018-12-10 07:10 | XMS REPORT | Encounter Summary ---
Author Author [facility] Organization [facility] Address Unknown Phone Unavailable Care Team Providers Care Health Club Attendant Name Role Phone Ian Hackett MD PCP Encounter Details Care Team Description Date Type Department Carrington Draper MD 4000 [place], [place] [phone] 10/22/2008 Hospital RADIOLOGY SPINE Encounter [address] [place] [address] Social History Date Tobacco Use Types Packs/Day [...] Procedure Notes * Viridiana Pablo MD - 10/22/2008 12:00 AM CDT ANESTHESIA PROCEDURE REPORT PREPROCEDURE DIAGNOSIS: Low back pain. Lumbar radiculopathy. Lumbar degenerative disk disease. Herniated disk at L5-S1 with right L5-S1 radicular pain. POSTPROCEDURE DIAGNOSIS: Same. REFERRING PHYSICIAN: SURGEON: ANESTHESIA: Local. COMPLICATIONS: None. PROCEDURE: Right L5 and S1 selective nerve root injections under fluoroscopic g uidance. INTERIM HISTORY: The patient returns today after last being seen about a year a go. She has had a series of epidural steroid injections about a year ago when n o improvement was noted followed by Dr. Draper and lumbar diskectomy was jillian mg That seemed to help for a while. She has had recurrent disk herniation that has been going on for the last several months. She saw Dr. Draper once again who recommended a trial of selective nerve root injection to see if this may hel p this time around before she undergoes a repeat surgery. Risks and benefits we re discussed. She agrees to proceed. DESCRIPTION OF PROCEDURE: Written informed consent was obtained. The patient w as taken to the procedure room and placed in the prone position. Sedation was ap plied. Lumbosacral area was prepped with Betadine solution and draped in steril e fashion. C-arm was obliqued toward the right under the right L5-S1 and S1-S2 f oraminal openings were identified. A 25-gauge 3.5-inch needles were guided throu gh each of the foraminal openings. Once adequate depth was obtained, negative as piration confirmed for CSF or heme, 1 mL of contrast was injected with adequate spread in the being noted along the nerve root at L5-S1 on the right side. No v ascular pattern was noted. This was followed by injection of 1.5 mL of 0.25 per cent bupivacaine and 40 mg of Depo-Medrol at each location and the needle was re moved. The patient tolerated the procedure well. No complication noted. She w as taken to the recovery area where for optimization 20 to 30 minutes, she was d ischarged in a stable condition and instructed to followup as needed in the futu re. Viridiana Pablo MD Vocational Evaluator Department of Anesthesiology (This report will become an official part of the medical record when signed by enoch vasquez staff physician.) TWK/MedQ /[id number] cc: Nanda Draper M.D. Meek Pablo MD documented in this encounter Plan of Treatment Not on filedocumented as of this encounter Procedures Comments Procedure Name Priority Date/Time Associated Diagnosis MOBILE FLUORO EXAM <60 Routine 10/22/2008 Spinal Stenosis of Lumbar [facility] 2:41 PM CDT Region Thoracic or Lumbosacral Neuritis or Radiculitis, Unspecified L SPINE AP & LATERAL Routine 10/22/2008 Lumbago 1:09 PM CDT documented in this encounter Results * MOBILE FLUORO EXAM <60 [facility] (10/22/2008 2:41 PM CDT) Exam Status [facility] SIGNED REPORT Exam MOBILE FLUOROSCOPY [facility] CLINICAL HISTORY: Intra operative exam FINDINGS: Dr. Sloan personally reviewed this report and formulated the interpretations and opinions expressed. 30 seconds of fluoro time was utilized for localization purposes in surgery.Two spot images demonstrate radiopaque needles in contrast material overlying the lower lumbar spine [...] and formulated the interpretations and opinions expressed. 30 seconds of fluoro time was utilized for localization purposes in surgery.Two spot images demonstrate radiopaque needles in contrast material overlying the lower lumbar spine and sacrum. Performing Organization Address City/State/Zipcode Phone Number [facility] * L SPINE AP & LATERAL (10/22/2008 1:09 PM CDT) Exam Status [facility] SIGNED REPORT Exam LUMBAR SPINE, AP AND LATERAL [facility] history: Lumbago. Redo micro disc right L5-S1 in 01/2008. Comparison: 24 January 2008, 04 April 2007. Vertebrae have normal height and alignment. Very mild spurring is seen. Disc spaces are relatively preserved. No compression fracture or listhesis. Visualized SI joints are unremarkable. Impression L SPINE, AP & LATERAL [facility] MINIMAL DEGENERATIVE CHANGE OF THE SPINE, STABLE. PACS [facility] Specimen Impressions Performed At L SPINE, AP & LATERAL [facility] MINIMAL DEGENERATIVE CHANGE OF THE SPINE, STABLE. Narrative Performed At LUMBAR SPINE, AP AND LATERAL [facility] history: Lumbago. Redo micro disc right L5-S1 in 01/2008. Comparison: 24 January 2008, 04 April 2007. Vertebrae have normal height and alignment. Very mild spurring is seen. Disc spaces are relatively preserved. No compression fracture or listhesis. Visualized SI joints are unremarkable. Performing Organization Address City/State/Zipcode Phone Number [facility] documented in this encounter Visit Diagnoses Diagnosis Lumbago Spinal stenosis, lumbar region, without neurogenic claudication Thoracic or lumbosacral neuritis or radiculitis, unspecified documented in this encounter
--- OUTSIDE RECORDS SUMMARY | 2018-12-10 07:10 | XMS REPORT ---
Author Author FÉLIX JENKINS [facility] Address [address] [place] [address] Care Team Providers Care Agricultural Adviser Name Role Phone FÉLIX JENKINS Unavailable PROBLEMS Unknown Problems ALLERGIES No Information ENCOUNTERS Encounter Location Date Diagnosis [facility] [id number] [place] [address] [phone] Apr, [facility] [id number] [place] [address] [phone] Feb, Dental examination Z01.20 [facility] [id number] [place] [address] [phone] Jan, Dental examination Z01.20 [facility] [id number] [place] [address] [phone] Nov, Dental examination Z01.20 [facility] [id number] [place] [address] [phone] Sep, Dental examination Z01.20 [facility] [id number] [place] [phone] Jan, [facility] [id number] [place] [phone] May, [facility] [address] [id number] [phone] October, Dental examination Z01.20 [facility] [address] [id number] [phone] Sep, Encounter for dental examination Z01.20 IMMUNIZATIONS No Known Immunizations SOCIAL HISTORY Never Assessed REASON FOR VISIT Prophy/PARMINDER PLAN OF CARE VITAL SIGNS MEDICATIONS Unknown Medications RESULTS No Results PROCEDURES Procedure Date Ordered Result Body Site Billing Notes on claim Feb 28, 2018 INSTRUCTIONS MEDICATIONS ADMINISTERED No Known Medications MEDICAL (GENERAL) HISTORY Type Description Date Medical History RODS,PINS,SCREWS Medical History BACK TROUBLE Medical History Anxiety with panix attacks Medical History migraine headaches Surgical History 3 spine surgeries Surgical History full hysterectomy 1996 Surgical History gallbladder removed 2012 Hospitalization History Surgery(s)/Childbirth(s) only
--- OUTSIDE RECORDS SUMMARY | 2018-12-10 07:10 | XMS REPORT | Encounter Summary ---
Author Author [facility] Organization [facility] Address Unknown Phone Unavailable Care Team Providers Care Field Radio Operator Name Role Phone Ian Hackett MD PCP Encounter Details Care Team Description Date Type Department Herbert Gibbs MD RETIRED [id number] 07/03/2007 Hospital Same Day Surgery Encounter [address] [place] [address] Social History Date Tobacco Use Types Packs/Day Years Used Never Assessed Sex Assigned at Date Recorded Not on file Industry Job Start Date Occupation Not on file Not on file Not on file Travel End Travel History Travel Start No recent travel history available. documented as of this encounter Last Filed Vital Signs Reading Time Taken Comments Vital Sign - - Blood Pressure - - Pulse - - Temperature - - Respiratory Rate - - Oxygen Saturation - - Inhaled Oxygen Concentration 88.5 kg (195 lb) 07/02/2007 10:00 AM IT ANALYST Weight 174 cm (5' 8.5") 07/02/2007 10:00 AM IT ANALYST Height 29.22 07/02/2007 10:00 AM IT ANALYST Body Mass Index documented in this encounter Medications at Time of Discharge Start Date End Date Medication Sig Dispensed Refills 07/02/2007 06/21/2009 PREMARIN PO Take 0.9 mg 0 by mouth Daily. 07/02/2007 06/21/2009 ZANAFLEX PO Take 4 mg by 0 mouth At Bedtime Daily. 07/02/2007 07/09/2009 TYLENOL-CODEINE #3 PO Take 1 Tab by 0 mouth Daily as needed. documented as of this encounter Progress Notes * Mimi Cagle - 07/02/2007 10:50 AM IT ANALYST 07/02/07 Pt inst npo 4hrs prior,hold Zanaflex 48hrs pre/24hrs post myelogram,basim peterson moving van driver,check in to Radiology@0900 07/03/07 for myelogram.Last dose of Zanaflex was 07/01/07 PM-ok'd by Dr. Fritz.ANAHI Quintero ANALYST documented in this encounter Plan of Treatment Not on filedocumented as of this encounter Visit Diagnoses Not on filedocumented in this encounter
--- OUTSIDE RECORDS SUMMARY | 2018-12-10 07:10 | XMS REPORT | Encounter Summary ---
Author Author [facility] Organization [facility] Address Unknown Phone Unavailable Care Team Providers Care Paunch Trimmer Name Role Phone Ian Hackett MD PCP Encounter Details Care Team Description Date Type Department Carrington Draper MD [address] [facility] [place] [address] 01/20/2008 Hospital Same Day Surgery Encounter [address] [place], [place] [phone] Social History Date Tobacco Use Types Packs/Day [...] Priority Date/Time Associated Diagnosis PTT (APTT) Routine 01/20/2008 Lumbago 12:50 PM CDT PROTIME INR (PT) Routine 01/20/2008 Lumbago 12:50 PM CDT CBC Routine 01/20/2008 Lumbago 12:50 PM CDT documented in this encounter Results * PROTIME INR (PT) (01/20/2008 12:50 PM CDT) Protime 11.9 10.6 - 12.8 SEC [facility] INR 1.0 [facility] RES[facility] Specimen Blood - Blood Performing Organization Address [facility] Phone Number [facility] * PTT (APTT) (01/20/2008 12:50 PM CDT) APTT 25.9 22.5 - 30.7 SEC [facility] RES[facility] Specimen Blood - Blood Performing Organization Address [facility] Phone Number [facility] * CBC (01/20/2008 12:50 PM CDT) White Blood 6.8 4.5 - 11.0 K/UL [facility] RES[facility] Cells RBC 4.60 4.0 - 5.0 M/UL [facility] Hemoglobin 14.0 12.0 - 15.0 GM/DL [facility] Hematocrit 40.6 36 - 45 % [facility] MCV 88.0 80 - 100 FL [facility] RES[facility] MCH 30.0 26 - 34 PG [facility] RES[facility] MCHC 34.0 32.0 - 36.0 G/DL [facility] RDW 13.1 11 - 15 % [facility] Platelet Count 220 150 - 400 K/UL [facility] RES[facility] MPV 8.0 7 - 11 FL [facility] RESULTS Specimen Blood - Blood Performing Organization Address [facility] Phone Number [facility] documented in this encounter Visit Diagnoses Diagnosis Lumbago documented in this encounter
--- OUTSIDE RECORDS SUMMARY | 2018-12-10 07:10 | XMS REPORT | Encounter Summary ---
Author Author [facility] Organization [facility] Address Unknown Phone Unavailable Care Team Providers Care Mining And Quarrying Machinery Repairer Name Role Phone Ian Hackett MD PCP Encounter Details Care Team Description Date Type Department Carrington Draper MD [address] [place] [address] [phone] 07/24/2007 Hospital Same Day Surgery Encounter [address] [place], [place] [phone] Social History Date Tobacco Use Types Packs/Day [...] (DICTATED ONLY) - Carrington Draper MD - 07/24/2007 12:00 AM MEDIA EXECUTIVE DATE OF OPERATION: 07/24/2007 ROOM #: ASR SURGEON: Nanda Draper M.D. CHARCOAL KILN BURNER(S): J Carlos Joseph MD PREOPERATIVE DIAGNOSIS: Right L5-S1 herniated nucleus pulposus. POSTOPERATIVE DIAGNOSIS: Same. OPERATIVE PROCEDURE: Right L5-S1 microdiscectomy. INDICATIONS FOR OPERATIVE PROCEDURE: The patient is a 32-year-old female with r ight leg pain who has failed conservative management including modification of _ ____ QA MARKER: 67 his medications, physical therapy, and pain management. She has been dealing with back and leg pain for approximately a year. X-rays, MRI, and CT myelogram were obtained revealing right-sided disc protrusion at L5- S1. Having failed conservative management, understanding the alternatives, ris ks, and complications, she requests surgery. DESCRIPTION OF OPERATIVE PROCEDURE: Preoperative informed consent was obtained. She was taken to the operating suite where general anesthesia was undertaken. She was provided with preoperative antibiotics. She was placed in the knee-ch est position on the Pinon table and all bony prominences were well padded. Ba ck was then prepped and draped in sterile fashion. A longitudinal incision was made at the L5-S1 level and dissection was carried down in lumbar fashion subper iosteally with the spine exposed to the right. An intraoperative x-ray was obta ined verifying the appropriate level. Laminotomy of the inferior aspect of L5 a nd superior aspect of S1 was created. Ligamentum flavum freed up and excised. The microscope was then sterilely draped and brought into field. Under microsco pic visualization, the nerve root and sac were gently retracted to the midline t o reveal a moderate-sized extruded disc fragment that was in the axilla of the S 1 nerve. This was gently teased free and removed allowing the nerve root and sa c to be gently retracted to the midline. The annular defect was then explored a nd disc material removed from the disc space. Once discectomy had been complete d, the nerve was freed, then tailored, and passed out of the foramen without fur ther compression. Disc space did not appear to have any further unstable fragme nts. The wound was copiously irrigated with antibiotic irrigation. The fascia was reapproximated with 0-Vicryl and 2-0 Vicryl to approximate the dermis. Inte rrupted nylon sutures were used to approximate the skin. Plain Marcaine 0.5% wa s used to anesthetize the incision. Xeroform followed by sterile dressings then applied. Sponge and needle counts were correct. The patient was taken to recovery room i n stable condition having tolerated the procedure well. Staff Physician Signature (This report will become an official part of the medical record when reviewed an d SIGNED by the staff physician.) Nanda Draper M.D. / SUSANNA [id number] cc: Nanda Draper M.D. A EXECUTIVE documented in this encounter Plan of Treatment Not on filedocumented as of this encounter Procedures Comments Procedure Name Priority Date/Time Associated Diagnosis L SPINE 1 VIEW STAT 07/24/2007 8:40 AM MEDIA EXECUTIVE documented in this encounter Results * L SPINE 1 VIEW (07/24/2007 8:40 AM MEDIA EXECUTIVE) Exam Status [facility] RES[facility] SIGNED REPORT Exam LUMBAR SPINE, SINGLE LATERAL [facility] RESULTS VIEW History: 32-year-old female in surgery FINDINGS: Dr. James has personally reviewed these images and formulated the interpretations and opinions expressed this report. Prior radiograph of the lumbar spine from April 04, 2007 was reviewed for comparison. Single lateral view of the lumbar spine in the supra and position demonstrates mild straightening of normal lumbar lordosis which is likely secondary to operative positioning. Surgical retractors are present in the soft tissues posterior to the patient. A surgical instrument is present with its tip pointed at the L5-S1 facet, inferior portion. Impression LATERAL VIEW OF THE LUMBAR [facility] RESULTS SPINE FOR THE PURPOSES OF INTRAOPERATIVE LOCALIZATION DESCRIBED. PACS [facility] RESULTS Specimen Performing Organization Address City/State/Zipcode Phone Number [facility] RESULTS documented in this encounter Visit Diagnoses Not on filedocumented in this encounter
--- OUTSIDE RECORDS SUMMARY | 2018-12-10 07:10 | XMS REPORT | Encounter Summary ---
Author Author [facility] Organization [facility] Address Unknown Phone Unavailable Care Team Providers Care Mesh Man Name Role Phone Ian Hackett MD PCP Encounter Details Care Team Description Date Type Department Carrington Draper MD [address] [facility] [place] [address] [phone] 07/18/2007 Hospital Same Day Surgery Encounter [address] [place], [place] [phone] Social History Date Tobacco Use Types Packs/Day [...]
--- OUTSIDE RECORDS SUMMARY | 2018-12-10 07:10 | XMS REPORT | Encounter Summary ---
Author Author [facility] Organization [facility] Address Unknown Phone Unavailable Care Team Providers Care Stage Hand Name Role Phone Unverified, Unverified Md PCP Unavailable Encounter Details Care Team Description Date Type Department Herbert Gibbs MD RETIRED [id number] 04/04/2007 Hospital Rad Svcs Encounter Social History Date Tobacco Use Types Packs/Day Years Used Never Assessed Sex Assigned at Date Recorded Not on file Industry Job Start Date Occupation Not on file Not on file Not on file Travel End Travel History Travel Start No recent travel history available. documented as of this encounter Plan of Treatment Not on filedocumented as of this encounter Procedures Comments Procedure Name Priority Date/Time Associated Diagnosis L SPINE AP & LATERAL 04/04/2007 12:22 PM CDT documented in this encounter Results * L SPINE AP & LATERAL (04/04/2007 12:22 PM CDT) Exam Status [facility] RESULTS SIGNED REPORT Exam AP AND LATERAL VIEWS OF THE [facility] RESULTS LUMBAR SPINE CLINICAL HISTORY: 31-year-old female with low back pain. FINDINGS: Dr. James has personally reviewed these images and formulated the interpretations and opinions expressed in this report. There is no prior study for comparison. The vertebral body heights and disc spaces are preserved. There is mild straightening of the normal lumbar lordosis. There is normal alignment of the lumbar spine. There is no evidence of fracture or dislocation. The pedicles are intact. The visualized SI joints are unremarkable. Impression NO EVIDENCE OF LUMBAR SPINE [facility] RESULTS FRACTURE OR SUBLUXATION. PACS [facility] RESULTS Specimen Performing Organization Address City/State/Zipcode Phone Number [facility] RESULTS documented in this encounter Visit Diagnoses Not on filedocumented in this encounter
--- OUTSIDE RECORDS SUMMARY | 2018-12-10 07:10 | XMS REPORT | Encounter Summary ---
Author Author [facility] Organization [facility] Address Unknown Phone Unavailable Care Team Providers Care Skein Yarn Drier Name Role Phone Ian Hackett MD PCP Encounter Details Care Team Description Date Type Department Herbert Gibbs MD RETIRED [id number] Manan Fritz MD [address] [phone] Thoracic or lumbosacral neuritis or radiculitis, unspecified 07/03/2007 Hospital Same Day Surgery Encounter [address] [place], [place] [phone] Social History Date Tobacco Use Types Packs/Day Years Used Never Assessed Sex Assigned at Date Recorded Not on file Industry Job Start Date Occupation Not on file Not on file Not on file Travel End Travel History Travel Start No recent travel history available. documented as of this encounter Last Filed Vital Signs Reading Time Taken Comments Vital Sign 106/59 07/03/2007 10:53 AM CAR CLERK PULLMAN Blood Pressure 71 07/03/2007 10:53 AM CAR CLERK PULLMAN Pulse 36.1 C (97 F) 07/03/2007 9:00 AM CAR CLERK PULLMAN Temperature - - Respiratory Rate 93% 07/03/2007 10:53 AM CAR CLERK PULLMAN Oxygen Saturation - - Inhaled Oxygen Concentration - - Weight - - Height - - Body Mass Index documented in this encounter [...] Comments Procedure Name Priority Date/Time Associated Diagnosis CT L-SPINE WO CONTRAST Routine 07/03/2007 Displacement of Lumbar 11:26 AM CAR CLERK PULLMAN Intervertebral Disc without Myelopathy MYLOGRM LUMBR Routine 07/03/2007 Displacement of Lumbar 11:03 AM CAR CLERK PULLMAN Intervertebral Disc without Myelopathy documented in this encounter Results * CT L-SPINE WO CONTRAST (07/03/2007 11:26 AM CAR CLERK PULLMAN) Exam Status [facility] RESULTS SIGNED REPORT Exam STUDY: CT MYELOGRAM OF LUMBAR [facility] RESULTS SPINE. Indication: 32-year-old female with right lower extremity radiculopathy and positive EMG findings at the right S1 nerve root level. TECHNIQUE: CONTINUOUS HELICAL MDCT 1 MM AXIAL IMAGES WERE OBTAINED FROM T12 THROUGH THE LOWER SACRAL SPINE, FOLLOWING ADMINISTRATION OF INTRATHECAL CONTRAST DESCRIBED ON PATIENT'S CONVENTIONAL MYELOGRAM REPORT. SAGITTAL AND CORONAL REFORMATIONS ARE EVALUATED. FINDINGS: I was present for the guzman elements of the procedure and personally interpreted the results. There is straightening of normal lumbar lordosis. The original disc spaces are well maintained at all levels. No significant degenerative changes are seen.There is no evidence of fracture or acute osseus abnormality.Mild effacement of the anterior thecal sac is seen at L3-L4, L4-L5, and L5-S1. There is no evidence of significant canal stenosis. There is a right paracentral soft tissue density at L5-S1 on the right, which abuts the S1 nerve root and impairs filling of the S1 nerve root sleeve. This corresponds with the small paracentral disc extrusion seen in the patient's outside MRI. The cord terminates at L1. The remaining visualized transiting and exiting nerves are unremarkable. The remaining neuroforamen are widely patent. Impression 1.RIGHT PARACENTRAL DISC [facility] RESULTS EXTRUSION AT L5-S1, ABUTTING THE RIGHT S1 NERVE ROOT AND COMPRESSING THE NERVE ROOT SLEEVE. PACS [facility] RESULTS Specimen Performing Organization Address City/State/Zipcode Phone Number [facility] RESULTS * MYLOGRM LUMBR (07/03/2007 11:03 AM CAR CLERK PULLMAN) Exam Status [facility] RESULTS SIGNED REPORT Exam PROCEDURE: LUMBAR MYELOGRAM. [facility] RESULTS Physicians: Dr. Smallwood and Dr. Ingram. Indication: 32-year-old female with right lower extremity radicular pain and positive EMG at the right S1 nerve root level. Medications: 2 mg Versed IV; 175 mcg fentanyl IV; 4 mg Zofran IV TECHNIQUE: Following informed consent, the patient was prepped and draped in the usual sterile fashion. 2% lidocaine was used to achieve local anesthesia over the back. Under fluoroscopic control, a 27-gauge spinal needle was advanced intrathecally at the L4-L5 level. 13 cc of Isovue M 200 contrast media was administered into the thecal sac. The needle was then removed, and multiple spot images were obtained of the lumbar spine following redistribution maneuvers. The patient was then sent to CT scan for additional evaluation. Straightening of the normal lumbar lordosis. The intervertebral disc spaces are well maintained at all levels. There is mild effacement of the anterior thecal sac at L3-L4, L4-5, and L5-S1 due to bulging of the annulus pulposis at these levels. No critical stenosis is identified. At the L5-S1 intervertebral disc space level, there is mild effacement and decreased filling of the left nerve root sleeve. Correlation with patient's CT myelogram is recommended. The remaining visualized transiting nerves and nerve root sleeves are normal in appearance. Active flexion and extension did not reveal any additional abnormality, though range of motion is limited. Impression 1. SUBTLE EFFACEMENT AND [facility] RESULTS DECREASED FILLING OF THE RIGHT S1 NERVE ROOT SLEEVE. CORRELATION WITH THE PATIENT'S CT MYELOGRAM IS RECOMMENDED. 2. STRAIGHTENING OF NORMAL LUMBAR LORDOSIS. 3. NO EVIDENCE OF SIGNIFICANT CANAL STENOSIS. PACS [facility] RESULTS Specimen Performing Organization Address City/State/Zipcode Phone Number [facility] RESULTS documented in this encounter Visit Diagnoses Diagnosis Displacement of lumbar intervertebral disc without myelopathy documented in this encounter Administered Medications Action Date Dose Rate Site Medication Order MAR Action 07/03/2007 10:52 AM CAR CLERK PULLMAN 50 mcg FENTANYL CITRATE (PF) 50 MCG/ML IJ SOLN Given 1 dose, Starting Sun07/03/07 at 1020, Until Sun07/03/07 at 1025, Glenn Joshua: Cabinet Override, Glenn Joshua: Cabinet Override, 50 mcg Given 07/03/2007 10:35 AM CAR CLERK PULLMAN 25 mcg Given 07/03/2007 10:33 AM CAR CLERK PULLMAN 07/03/2007 10:41 AM CAR CLERK PULLMAN 13 mL IOPAMIDOL 41 % IT SOLN Given 1 dose, Starting Sun07/03/07 at 1000, Until Sun07/03/07 at 1041, BLAIR SCOTT: Cabinet Override, BLAIR SCOTT: Cabinet Override, 07/03/2007 10:41 AM CAR CLERK PULLMAN 3 mL LIDOCAINE HCL 2 % (20 MG/ML) IJ SOLN Given 1 dose, Starting Sun07/03/07 at 1000, Until Sun07/03/07 at 1041, BLAIR SCOTT: Cabinet Override, BLAIR SCOTT: Cabinet Override, 07/03/2007 10:25 AM CAR CLERK PULLMAN 2 mg MIDAZOLAM 1 MG/ML IJ SOLN Given 1 dose, Starting Sun07/03/07 at 1020, Until Sun07/03/07 at 1026, Glenn Joshua: Cabinet Override, Glenn Joshua: Cabinet Override, 07/03/2007 10:26 AM CAR CLERK PULLMAN 4 mg ONDANSETRON HCL (PF) 4 MG/2 ML IJ SOLN Given 1 dose, Starting Sun07/03/07 at 1020, Until Sun07/03/07 at 1026, Glenn Joshua: Cabinet Override, Glenn Joshua: Cabinet Override, 07/03/2007 10:40 AM CAR CLERK PULLMAN 100 mL SODIUM CHLORIDE 0.9 % IV SOLP Given 1 dose, Starting Sun07/03/07 at 0917, Until Sun07/03/07 at 1040, Anjali Munson: Cabinet Override, Anjali Munson: Cabinet Override, documented in this encounter
--- OUTSIDE RECORDS SUMMARY | 2018-12-10 07:11 | XMS REPORT ---
Author Author BECKA JACQUES Organization [facility] Address [address] [place] [address] Care Team Providers Care Field Identification Specialist Name Role Phone BECKA JACQUES Unavailable PROBLEMS Unknown Problems ALLERGIES Substance Reaction Event Type Date Status Azithromycin Unknown Drug Allergy Sep, Active Z- PACK nausea Non Drug Allergy Sep, Active ENCOUNTERS Encounter Location Date Diagnosis [facility] [id number] [place] [phone] Feb, [facility] [id number] [place] [address] [phone] Jan, Dental examination Z01.20 [facility] [id number] [place] [address] [phone] Nov, Dental examination Z01.20 [facility] [id number] [place] [address] [phone] Sep, Dental examination Z01.20 [facility] [id number] [place] [phone] Jan, [facility] [id number] [place] [phone] May, [facility] [address] [facility] [id number] [phone] October, Dental examination Z01.20 [facility] [address] [facility] [address] [id number] [phone] Sep, Encounter for dental examination Z01.20 IMMUNIZATIONS No Known Immunizations SOCIAL HISTORY Never Assessed REASON FOR VISIT fillings PLAN OF CARE Activity Details Follow Up prn Reason:JESSICA VITAL SIGNS Blood pressure systolic 100 mmHg 2017-10-08 Blood pressure diastolic 60 mmHg 2017-10-08 MEDICATIONS Medication Instructions Dosage Frequency Start Date End Date Duration Status Naproxen 500 Orally PRN 1 tablet Active Flexeril 10 by oral route Once a day 1 tablet 24h Active Premarin 0.625 MG Orally Once a day 1 tablet 24h Active Imitrex 50 mg Orally PRN 1 tablet as needed Active Hydrocodone-Acetaminophen 7.5-325 MG Orally every 6 hrs 1 tablet as needed 6h Active Zofran 8 MG Orally PRN 1 tablet Active Alprazolam 1 MG Orally 3 times a day PRN 1 tablet Active Clobetasol Propionate 0.05 % Externally Twice a day 1 application to affected area 12h Active RESULTS No Results PROCEDURES Procedure Date Ordered Result Body Site RESIN COMPOS - 1 SURFACE POSTERIOR October 08, 2017 RESIN COMPOS - 1 SURFACE POSTERIOR October 08, 2017 BITEWINGS - THREE FILMS October 08, 2017 RESIN COMPOS - 1 SURFACE POSTERIOR October 08, 2017 Billing Notes on claim October 08, 2017 INSTRUCTIONS MEDICATIONS ADMINISTERED No Known Medications MEDICAL (GENERAL) HISTORY Type Description Date Medical History RODS,PINS,SCREWS Medical History BACK TROUBLE Medical History Anxiety with panix attacks Medical History migraine headaches Surgical History 3 spine surgeries Surgical History full hysterectomy 1996 Surgical History gallbladder removed 2011 Hospitalization History Surgery(s)/Childbirth(s) only
--- OUTSIDE RECORDS SUMMARY | 2018-12-10 07:11 | XMS REPORT ---
Author Author ALYSSALASHAE CARMELA [facility] Address Unknown Care Team Providers Care Mathematics Improvement Teacher Name Role Phone CARMELA HAN Unavailable PROBLEMS Unknown Problems ALLERGIES Substance Reaction Event Type Date Status Azithromycin Unknown Drug Allergy Jan, Active Z- PACK nausea Non Drug Allergy Jan, Active ENCOUNTERS Encounter Location Date Diagnosis [facility] [id number] [place] [address] [phone] Apr, [facility] [id number] [place] [address] [phone] Feb, [facility] [id number] [place] [address] [phone] Jan, Dental examination Z01.20 [facility] [id number] [place] [address] [phone] Nov, Dental examination Z01.20 [facility] [id number] [place] [address] [phone] Sep, Dental examination Z01.20 [facility] [address], [place] [address] Jan, [facility] [address] [place] [phone] May, [facility] [place] [address] [id number] [phone] October, Dental examination Z01.20 [facility] [place] [address] [id number] [phone] Sep, Encounter for dental examination Z01.20 IMMUNIZATIONS No Known Immunizations SOCIAL HISTORY Never Assessed REASON FOR VISIT JADON PLAN OF CARE Activity Details Follow Up prn Reason:recALL VITAL SIGNS MEDICATIONS Medication Instructions Dosage Frequency Start Date End Date Duration Status Flexeril 10 by oral route Once a day 1 tablet 24h Active Hydrocodone-Acetaminophen 7.5-325 MG Orally every 6 hrs 1 tablet as needed 6h Active Alprazolam 1 MG Orally 3 times a day PRN 1 tablet Active Zofran 8 MG Orally PRN 1 tablet Active Premarin 0.625 MG Orally Once a day 1 tablet 24h Active Naproxen 500 Orally PRN 1 tablet Active Clobetasol Propionate 0.05 % Externally Twice a day 1 application to affected area 12h Active Imitrex 50 mg Orally PRN 1 tablet as needed Active RESULTS No Results PROCEDURES Procedure Date Ordered Result Body Site RESIN COMPOS - 3 SURFACES POSTERIOR Jan 25, 2018 Billing Notes on claim Jan 25, 2018 INSTRUCTIONS MEDICATIONS ADMINISTERED No Known Medications MEDICAL (GENERAL) HISTORY Type Description Date Medical History RODS,PINS,SCREWS Medical History BACK TROUBLE Medical History Anxiety with panix attacks Medical History migraine headaches Surgical History 3 spine surgeries Surgical History full hysterectomy 1996 Surgical History gallbladder removed 2011 Hospitalization History Surgery(s)/Childbirth(s) only
--- OUTSIDE RECORDS SUMMARY | 2018-12-10 07:11 | XMS REPORT ---
Author Author ALYSSACARMELA BHARDWAJ [facility] Address Unknown Care Team Providers Care Artifacts Conservator Name Role Phone CARMELA HAN Unavailable PROBLEMS Unknown Problems ALLERGIES Substance Reaction Event Type Date Status Azithromycin Unknown Drug Allergy Nov, Active Z- PACK nausea Non Drug Allergy Nov, Active ENCOUNTERS Encounter Location Date Diagnosis [facility] [id number] [place] [phone] Apr, [facility] [id number] [place] [address] [phone] Feb, [facility] [id number] [place] [address] [phone] Jan, Dental examination Z01.20 [facility] [id number] [place] [address] [phone] Nov, Dental examination Z01.20 [facility] [id number] [place] [address] [phone] Sep, Dental examination Z01.20 [facility] [id number] [address] Jan, [facility] [id number] [place] [phone] May, [facility] [place] [address] [id number] [phone] October, [facility] Z01.20 [facility] [place] [address] [id number] [phone] Sep, Encounter for dental examination Z01.20 IMMUNIZATIONS No Known Immunizations SOCIAL HISTORY Never Assessed REASON FOR VISIT marina PLAN OF CARE Activity Details Follow Up prn Reason:Restore # 3-DOL VITAL SIGNS MEDICATIONS Medication Instructions Dosage Frequency Start Date End Date Duration Status Premarin 0.625 MG Orally Once a day 1 tablet 24h Active Naproxen 500 Orally PRN 1 tablet Active Flexeril 10 by oral route Once a day 1 tablet 24h Active Clobetasol Propionate 0.05 % Externally Twice a day 1 application to affected area 12h Active Imitrex 50 mg Orally PRN 1 tablet as needed Active Zofran 8 MG Orally PRN 1 tablet Active Alprazolam 1 MG Orally 3 times a day PRN 1 tablet Active Hydrocodone-Acetaminophen 7.5-325 MG Orally every 6 hrs 1 tablet as needed 6h Active RESULTS No Results PROCEDURES Procedure Date Ordered Result Body Site LTD ORAL EVALUATION - PROBLEM FOCUS December 18, 2017 INTRAORL-PERIAPICAL 1 FILM [id number] December 18, 2017 BITEWING - SINGLE FILM December 18, 2017 INSTRUCTIONS MEDICATIONS ADMINISTERED No Known Medications MEDICAL (GENERAL) HISTORY Type Description Date Medical History RODS,PINS,SCREWS Medical History BACK TROUBLE Medical History Anxiety with panix attacks Medical History migraine headaches Surgical History 3 spine surgeries Surgical History full hysterectomy 1996 Surgical History gallbladder removed 2011 Hospitalization History Surgery(s)/Childbirth(s) only
--- OUTSIDE RECORDS SUMMARY | 2018-12-10 07:11 | XMS REPORT ---
Author Author MITCH POWELL [facility] Address [address] [place] [address] Care Team Providers Care Sawmilling Operator Name Role Phone MITCH POWELL Unavailable PROBLEMS Unknown Problems ALLERGIES Substance Reaction Event Type Date Status Z- PACK nausea Non Drug Allergy May, Active SOCIAL HISTORY No smoking Hx information available PLAN OF CARE VITAL SIGNS MEDICATIONS Medication Instructions Dosage Frequency Start Date End Date Duration Status Hydrocodone-Acetaminophen 7.5-325 MG Orally every 6 hrs 1 tablet as needed 6h Active Naproxen 500 Orally PRN 1 tablet Active Flexeril 10 by oral route Once a day 1 tablet 24h Active Alprazolam 1 MG Orally 3 times a day PRN 1 tablet Active Premarin 0.625 MG Orally Once a day 1 tablet 24h Active Zofran 8 MG Orally PRN 1 tablet Active Imitrex 50 mg Orally PRN 1 tablet as needed Active Clobetasol Propionate 0.05 % Externally Twice a day 1 application to affected area 12h Active RESULTS No Results PROCEDURES No Known procedures IMMUNIZATIONS No Known Immunizations
--- OUTSIDE RECORDS SUMMARY | 2018-12-10 07:12 | XMS REPORT | Continuity of Care Document ---
Author Organization Unknown Address Unknown Allergies Active Description Code Type Severity Reaction Onset Reported/Identified Relationship to Patient Clinical Status Yes oxycodone [id number] Drug Allergy Mild N/A 05/04/2009 Yes Z PACK Z PACK Mild N/A 05/04/2009 Yes acetaminophen [id number] Drug Allergy Mild N/A 05/29/2012 Yes propoxyphene napsylate [id number] Drug Allergy Mild N/A 05/29/2012 Yes azithromycin [id number] Drug Allergy Unknown [facility] 01/19/2016 Yes azithromycin [id number] Drug Allergy Moderate N/V, ABD PAIN 12/06/2018 Medications There is no data. Problems Date Dx Coded Attending Type Code Diagnosis Diagnosed By [id number] DARRELL OVALLES, CHER Finnegan Ot M75.02 ADHESIVE CAPSULITIS OF LEFT SHOULDER 1328 CHER RAMÍREZ MD Ot M25.512 PAIN IN LEFT SHOULDER 1328 CHER RAMÍREZ MD Ot Z47.89 ENCOUNTER FOR OTHER ORTHOPEDIC AFTERCARE 11/26/2009 Ot 724.2 11/26/2009 Ot V45.4 11/26/2009 Ot V57.1 11/26/2009 Ot V58.49 01/03/2011 Ot 847.0 SPRAIN OF NECK 01/03/2011 Ot 959.09 INJURY OF FACE AND NECK 01/03/2011 Ot E000.8 OTHER EXTERNAL CAUSE STATUS 01/03/2011 Ot E849.0 ACCIDENT IN HOME 01/03/2011 Ot E885.9 FALL FROM SLIPPING, TRIPPING, OR STUMBLI 02/14/2011 Ot 300.01 PANIC DISORDER WITHOUT AGORAPHOBIA 02/14/2011 Ot 786.50 CHEST PAIN NOS 05/29/2012 Ot 379.91 PAIN IN OR AROUND EYE 05/29/2012 Ot 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 05/29/2012 Ot E000.8 OTHER EXTERNAL CAUSE STATUS 05/29/2012 Ot E928.9 ACCIDENT NOS 09/26/2012 Ot 574.00 CHOLELITH W AC CHOLECYST 10/31/2013 ALAINA OVALLES, RIVER Eid Ot 211.1 BENIGN NEOPLASM STOMACH 10/31/2013 ALAINA OVALLES, RIVER Eid Ot 455.9 RESIDUAL HEMORRHOID TAGS 10/31/2013 RIVRE FOLEY MD Ot 530.81 ESOPHAGEAL REFLUX 10/31/2013 ALAINA OVALLES, RIVER Eid Ot 553.3 DIAPHRAGMATIC HERNIA 10/31/2013 ALAINA OVALLES, RIVER Eid Ot 569.0 ANAL RECTAL POLYP 10/31/2013 ALAINA OVALLES, RIVER Eid Ot 787.91 DIARRHEA 03/31/2015 JOAN OVALLES, ERIBERTO Bridges Ot 724.02 03/31/2015 JOAN OVALLES, ERIBERTO Bridges Ot V76.12 04/07/2015 ERIBERTO FRANCO MD Ot 724.02 04/07/2015 ERIBERTO FRANCO MD Ot V76.12 05/18/2015 LETY SCOTT, JOSE C Arroyo Ot B35.4 TINEA CORPORIS 05/18/2015 Ot 611.71 05/18/2015 Ot 724.2 05/18/2015 Ot 569.3 05/18/2015 Ot 789.00 05/18/2015 JOAN OVALLES, ERIBERTO Bridges Ot V76.12 05/18/2015 JOAN OVALLES, ERIBERTO Bridges Ot 112.9 05/18/2015 ERIBERTO FRANCO MD Ot V10.3 05/18/2015 ERIBERTO FRANCO MD Ot V76.11 05/18/2015 ALAINA OVALLES, RIVER Eid Ot V72.84 05/18/2015 ERIBERTO FRANCO MD Ot 724.02 05/18/2015 ERIBERTO FRANCO MD Ot V76.12 07/26/2015 Ot 611.71 07/26/2015 Ot 724.2 07/26/2015 Ot 569.3 07/26/2015 Ot 789.00 07/26/2015 ERIBERTO FRANCO MD Ot V76.12 07/26/2015 JOAN OVALLES, ERIBERTO Bridges Ot 112.9 07/26/2015 ERIBERTO FRANCO MD Ot V10.3 07/26/2015 ERIBERTO FRANCO MD Ot V76.11 07/26/2015 RIVER FOLEY MD Ot V72.84 07/26/2015 ERIBERTO FRANCO MD Ot 724.02 07/26/2015 ERIBERTO FRANCO MD Ot V76.12 08/20/2015 ERIBERTO FRANCO MD Ot R05 08/20/2015 ERIBERTO FRANCO MD Ot R05 11/30/2015 ALAINA OVALLES, RIVER Eid Ot R13.10 DYSPHAGIA, UNSPECIFIED 12/02/2015 RIVER FOLEY MD Ot R13.10 DYSPHAGIA, UNSPECIFIED 12/03/2015 ALAINA OVALLES, RIVER Eid Ot K20.0 EOSINOPHILIC ESOPHAGITIS 12/03/2015 RIVER FOLEY MD Ot K22.2 ESOPHAGEAL OBSTRUCTION 12/03/2015 RIVER FOLEY MD Ot K25.9 GASTRIC ULCER, UNSP ACUTE OR CHRONIC, 12/07/2015 RIVER FOLEY MD Ot K20.0 EOSINOPHILIC ESOPHAGITIS 12/07/2015 RIVER FOLEY MD Ot K22.2 ESOPHAGEAL OBSTRUCTION 12/07/2015 RIVER FOLEY MD Ot K25.9 GASTRIC ULCER, UNSP ACUTE OR CHRONIC, 03/02/2016 Ot 724.2 LUMBAGO 03/02/2016 Ot 569.3 RECTAL ANAL HEMORRHAGE 03/02/2016 Ot 789.00 ABDOMINAL PAIN, UNSPECIFIED SITE 03/02/2016 ERIBERTO FRANCO MD Ot V76.12 OTH SCREEN MAMMO-MALIGN NEOPLASM OF QI 03/02/2016 ERIBERTO FRANCO MD Ot 112.9 CANDIDIASIS SITE NOS 03/02/2016 ERIBERTO FRANCO MD Ot V10.3 HX OF BREAST MALIGNANCY 03/02/2016 ERIBERTO FRANCO MD Ot V76.11 SCRN MAMMO-HIGH RISK PT, MALIGNANT NEOPL 03/02/2016 ALAINA OVALLES, RIVER Eid Ot V72.84 EXAM PRE-OPERATIVE NOS 03/02/2016 ERIBERTO FRANCO MD Ot 724.02 SPINAL STENOSIS, LUMBAR REG, W/OUT NEURO 03/02/2016 ERIBERTO FRANCO MD Ot V76.12 OTH SCREEN MAMMO-MALIGN NEOPLASM OF QI 03/02/2016 ERIBERTO FRANCO MD Ot R05 COUGH 03/03/2016 ISABELLE STANTON MD Ot Z12.31 ENCNTR SCREEN MAMMOGRAM FOR MALIGNANT NE 03/03/2016 ISABELLE STANTON MD Ot Z12.31 ENCNTR SCREEN MAMMOGRAM FOR MALIGNANT NE 03/03/2016 ISABELLE STANTON MD Ot Z12.31 ENCNTR SCREEN MAMMOGRAM FOR MALIGNANT NE 03/08/2016 ISABELLE STANTON MD Ot Z12.31 ENCNTR SCREEN MAMMOGRAM FOR MALIGNANT NE 03/23/2016 ISABELLE STANTON MD Ot Z12.31 ENCNTR SCREEN MAMMOGRAM FOR MALIGNANT NE 03/28/2016 ISABELLE STANTON MD Ot Z12.31 ENCNTR SCREEN MAMMOGRAM FOR MALIGNANT NE 04/10/2016 ALAINA OVALLES, RIVER Eid Ot R13.10 DYSPHAGIA, UNSPECIFIED 04/10/2016 ALAINA OVALLES, RIVER Eid Ot Z01.818 ENCOUNTER FOR OTHER PREPROCEDURAL EXAMIN 04/11/2016 RIVER FOLEY MD Ot K21.9 GASTRO-ESOPHAGEAL REFLUX DISEASE WITHOUT 04/11/2016 RIVER FOLEY MD Ot K44.9 DIAPHRAGMATIC HERNIA WITHOUT OBSTRUCTION 04/11/2016 RIVER FOLEY MD Ot R13.10 DYSPHAGIA, UNSPECIFIED 04/11/2016 ALAINA OVALLES, RIVER Eid Ot Z01.818 ENCOUNTER FOR OTHER PREPROCEDURAL EXAMIN 04/13/2016 RIVER FOLEY MD Ot K21.9 GASTRO-ESOPHAGEAL REFLUX DISEASE WITHOUT 04/13/2016 RIVER FOLEY MD Ot K44.9 DIAPHRAGMATIC HERNIA WITHOUT OBSTRUCTION 04/14/2016 RIVER FOLEY MD Ot K21.9 GASTRO-ESOPHAGEAL REFLUX DISEASE WITHOUT 04/14/2016 RIVER FOLEY MD Ot K44.9 DIAPHRAGMATIC HERNIA WITHOUT OBSTRUCTION 04/17/2016 RIVER FOLEY MD Ot K21.9 GASTRO-ESOPHAGEAL REFLUX DISEASE WITHOUT 04/17/2016 RIVER FOLEY MD Ot K44.9 DIAPHRAGMATIC HERNIA WITHOUT OBSTRUCTION 03/20/2017 ISABELLE STANTON MD Ot Z12.31 ENCNTR SCREEN MAMMOGRAM FOR MALIGNANT NE 03/20/2017 Ot 569.3 RECTAL ANAL HEMORRHAGE 03/20/2017 Ot 789.00 ABDOMINAL PAIN, UNSPECIFIED SITE 03/20/2017 ERIBERTO FRANCO MD Ot V76.12 OTH SCREEN MAMMO-MALIGN NEOPLASM OF QI 03/20/2017 ERIBERTO FRANCO MD Ot 112.9 CANDIDIASIS SITE NOS 03/20/2017 ERIBERTO FRANCO MD Ot V10.3 HX OF BREAST MALIGNANCY 03/20/2017 ERIBERTO FRANCO MD Ot V76.11 SCRN MAMMO-HIGH RISK PT, MALIGNANT NEOPL 03/20/2017 ALAINA OVALLES, RIVER Eid Ot V72.84 EXAM PRE-OPERATIVE NOS 03/20/2017 JOAN OVALLES, ERBIERTO Bridges Ot 724.02 SPINAL STENOSIS, LUMBAR REG, W/OUT NEURO 03/20/2017 ERIBERTO FRANCO MD Ot V76.12 OTH SCREEN MAMMO-MALIGN NEOPLASM OF QI 03/20/2017 JOAN OVALLES, ERIBERTO Bridges Ot R05 COUGH 03/20/2017 ROMY OVALLES, ISABELLE Pradhan Ot Z12.31 ENCNTR SCREEN MAMMOGRAM FOR MALIGNANT NE 03/20/2017 ISABELLE STANTON MD Ot Z12.31 ENCNTR SCREEN MAMMOGRAM FOR MALIGNANT NE 03/21/2017 ISABELLE STANTON MD Ot Z12.31 ENCNTR SCREEN MAMMOGRAM FOR MALIGNANT NE 04/10/2017 ISABELLE STANTON MD Ot Z12.31 ENCNTR SCREEN MAMMOGRAM FOR MALIGNANT NE 04/16/2017 ISABELLE STANTON MD Ot Z12.31 ENCNTR SCREEN MAMMOGRAM FOR MALIGNANT NE 02/10/2018 BERNOT, DULCE Ot F41.9 ANXIETY DISORDER, UNSPECIFIED 02/10/2018 BERNOT, DULCE Ot K21.9 GASTRO- ESOPHAGEAL REFLUX DISEASE WITHOUT 02/10/2018 BERNOT, DULCE Ot M25.512 PAIN IN LEFT SHOULDER 02/10/2018 BERNOT, DULCE Ot Z88.1 ALLERGY STATUS TO OTHER ANTIBIOTIC AGENT 02/10/2018 BERNOT, DULCE Ot Z88.8 ALLERGY STATUS TO OTH DRUG/MEDS/BIOL SUB 02/10/2018 BERNOT, DULCE Ot Z90.710 ACQUIRED ABSENCE OF BOTH CERVIX AND UTER 02/12/2018 BERNOT, DULCE Ot F41.9 ANXIETY DISORDER, UNSPECIFIED 02/12/2018 BERNOT, DULCE Ot K21.9 GASTRO- ESOPHAGEAL REFLUX DISEASE WITHOUT 02/12/2018 BERNOT, DULCE Ot M25.512 PAIN IN LEFT SHOULDER 02/12/2018 BERNOT, DULCE Ot Z88.1 ALLERGY STATUS TO OTHER ANTIBIOTIC AGENT 02/12/2018 BERNOT, DULCE Ot Z88.8 ALLERGY STATUS TO OTH DRUG/MEDS/BIOL SUB 02/12/2018 BERNOT, DULCE Ot Z90.710 ACQUIRED ABSENCE OF BOTH CERVIX AND UTER 02/18/2018 CHER RAMÍREZ MD Ot M25.512 PAIN IN LEFT SHOULDER 02/18/2018 CHER RAMÍREZ MD Ot Z47.89 ENCOUNTER FOR OTHER ORTHOPEDIC AFTERCARE 03/08/2018 CHER RAMÍREZ MD Ot M25.512 PAIN IN LEFT SHOULDER 03/08/2018 CHER RAMÍREZ MD Ot Z47.89 ENCOUNTER FOR OTHER ORTHOPEDIC AFTERCARE 03/19/2018 CHER RAMÍREZ MD Ot M25.512 PAIN IN LEFT SHOULDER 03/19/2018 CHER RAMÍREZ MD Ot Z47.89 ENCOUNTER FOR OTHER ORTHOPEDIC AFTERCARE 03/23/2018 ISABELLE STANTON MD Ot Z12.31 ENCNTR SCREEN MAMMOGRAM FOR MALIGNANT NE 03/29/2018 CHER RAMÍREZ MD Ot M25.512 PAIN IN LEFT SHOULDER 03/29/2018 CHER RAMÍREZ MD Ot Z47.89 ENCOUNTER FOR OTHER ORTHOPEDIC AFTERCARE 04/15/2018 ISABELLE STANTON MD Ot Z12.31 ENCNTR SCREEN MAMMOGRAM FOR MALIGNANT NE 04/17/2018 CHER RAMÍREZ MD Ot M25.512 PAIN IN LEFT SHOULDER 04/17/2018 CHER RAMÍREZ MD Ot Z47.89 ENCOUNTER FOR OTHER ORTHOPEDIC AFTERCARE 04/19/2018 ISABELLE STANTON MD Ot Z12.31 ENCNTR SCREEN MAMMOGRAM FOR MALIGNANT NE 05/29/2018 ISABELLE STANTON MD Ot E66.9 OBESITY, UNSPECIFIED 05/29/2018 ISABELLE STANTON MD Ot G89.29 OTHER CHRONIC PAIN 05/29/2018 ISABELLE STANTON MD Ot R53.83 OTHER FATIGUE 06/22/2018 ISABELLE STANTON MD Ot E66.9 OBESITY, UNSPECIFIED 06/22/2018 ISABELLE STANTON MD Ot G89.29 OTHER CHRONIC PAIN 06/22/2018 ISABELLE STANTON MD Ot R53.83 OTHER FATIGUE 08/19/2018 CHER RAMÍREZ MD Ot M75.02 ADHESIVE CAPSULITIS OF LEFT SHOULDER 08/21/2018 ISABELLE STANTON MD Ot M46.86 OTHER SPECIFIED INFLAMMATORY SPONDYLOPAT 08/21/2018 ISABELLE STANTON MD Ot M51.36 OTHER INTERVERTEBRAL DISC DEGENERATION, 08/21/2018 ISABELLE STANTON MD Ot M53.3 SACROCOCCYGEAL DISORDERS, NOT ELSEWHERE 08/21/2018 ISABELLE STANTON MD, Ot Z98.1 ARTHRODESIS STATUS 09/11/2018 ISABELLE STANTON MD, Ot M46.86 OTHER SPECIFIED INFLAMMATORY SPONDYLOPAT 09/11/2018 ISABELLE STANTON MD, Ot M51.36 OTHER INTERVERTEBRAL DISC DEGENERATION, 09/11/2018 ISABELLE STANTON MD, Ot M53.3 SACROCOCCYGEAL DISORDERS, NOT ELSEWHERE 09/11/2018 ISABELLE STANTON MD, Ot Z98.1 ARTHRODESIS STATUS 09/13/2018 CHER RAMÍREZ MD, Ot M75.02 ADHESIVE CAPSULITIS OF LEFT SHOULDER 09/17/2018 CHER RAMÍREZ MD, Ot M75.02 ADHESIVE CAPSULITIS OF LEFT SHOULDER 09/20/2018 CHER RAMÍREZ MD, Ot M75.02 ADHESIVE CAPSULITIS OF LEFT SHOULDER 12/06/2018 ALAINA OVALLES, RIVER Eid Ot Z01.818 ENCOUNTER FOR OTHER PREPROCEDURAL EXAMIN Procedures Code Description Performed By Performed On 51.23 LAPAROSCOPIC CHOLECYSTECTOMY 09/25/2012 Results Test Result Range Complete blood count (CBC) with automated white blood cell (WBC) differential - 05/28/18 09:59 Blood leukocytes automated count (number/volume) 7.3 10*3/uL 4.3-11.0 Blood erythrocytes automated count (number/volume) 4.83 10*6/uL 4.35-5.85 Venous blood hemoglobin measurement (mass/volume) 14.3 g/dL 11.5-16.0 Blood hematocrit (volume fraction) 42 % 35-52 Automated erythrocyte mean corpuscular volume 87 [foz_us] 80-99 Automated erythrocyte mean corpuscular hemoglobin (mass per erythrocyte) 30 pg 25-34 Automated erythrocyte mean corpuscular hemoglobin concentration measurement (mass/volume) 34 g/dL 32-36 Automated erythrocyte distribution width ratio 13.2 % 10.0- 14.5 Automated blood platelet count (count/volume) 247 10*3/uL 130-400 Automated blood platelet mean volume measurement 10.0 [foz_us] 7.4-10.4 Automated blood neutrophils/100 leukocytes 73 % 42-75 Automated blood lymphocytes/100 leukocytes 21 % 12-44 Blood monocytes/100 leukocytes 4 % 0-12 Automated blood eosinophils/100 leukocytes 1 % 0-10 Automated blood basophils/100 leukocytes 0 % 0-10 Blood neutrophils automated count (number/volume) 5.3 10*3 1.8-7.8 Blood lymphocytes automated count (number/volume) 1.5 10*3 1.0-4.0 Blood monocytes automated count (number/volume) 0.3 10*3 0.0- 1.0 Automated eosinophil count 0.1 10*3/uL 0.0-0.3 Automated blood basophil count (count/volume) 0.0 10*3/uL 0.0-0.1 Comprehensive metabolic panel - 05/28/18 09:59 Serum or plasma sodium measurement (moles/volume) 140 mmol/L 135-145 Serum or plasma potassium measurement (moles/volume) 3.9 mmol/L 3.6-5.0 Serum or plasma chloride measurement (moles/volume) 105 mmol/L 98-107 Carbon dioxide 25 mmol/L 21-32 Serum or plasma anion gap determination (moles/volume) 10 mmol/L 5-14 Serum or plasma urea nitrogen measurement (mass/volume) 11 mg/dL 7-18 Serum or plasma creatinine measurement (mass/volume) 0.73 mg/dL 0.60-1.30 Serum or plasma urea nitrogen/creatinine mass ratio 15 NRG Serum or plasma creatinine measurement with calculation of estimated glomerular filtration rate > NRG Serum or plasma glucose measurement (mass/volume) 95 mg/dL 70-105 Serum or plasma calcium measurement (mass/volume) 9.3 mg/dL 8.5-10.1 Serum or plasma total bilirubin measurement (mass/volume) 0.5 mg/dL 0.1-1.0 Serum or plasma alkaline phosphatase measurement (enzymatic activity/volume) 69 U/L 40-136 Serum or plasma aspartate aminotransferase measurement (enzymatic activity/volume) 18 U/L 5-34 Serum or plasma alanine aminotransferase measurement (enzymatic activity/volume) 20 U/L 0-55 Serum or plasma protein measurement (mass/volume) 7.3 g/dL 6.4-8.2 Serum or plasma albumin measurement (mass/volume) 4.3 g/dL 3.2-4.5 CALCIUM CORRECTED 9.1 mg/dL 8.5-10.1 Lipid 1996 panel - 05/28/18 09:59 Serum or plasma triglyceride measurement (mass/volume) 106 mg/dL <150 Serum or plasma cholesterol measurement (mass/volume) 233 mg/dL < 200 Serum or plasma cholesterol in HDL measurement (mass/volume) 65 mg/dL 40-60 Cholesterol in LDL [mass/volume] in serum or plasma by direct assay 150 mg/dL 1-129 Serum or plasma cholesterol in VLDL measurement (mass/volume) 21 mg/dL 5-40 THYROID STIMULATING HORMONE - 05/28/18 09:59 THYROID STIMULATING HORMONE 3.10 u[iU]/mL 0.35-4.94 Encounters ACCT No. Visit Date/Time Discharge Status Pt. Type Provider Facility Loc./Unit Complaint [id number] 12/06/2018 05:39:00 12/06/2018 09:53:00 DIS Outpatient RIVER FOLEY MD [facility] PREOP EGD [id number] 09/23/2018 08:28:00 10/21/2018 11:37:00 DIS Outpatient CHER RAMÍREZ MD [facility] REHAB LEFT ADHESIVE CAPSULITIS [id number] 08/20/2018 08:24:00 08/20/2018 23:59:59 CLS Outpatient ISABELLE STANTON MD [facility] RAD LOW BACK PAIN [id number] 05/28/2018 09:45:00 05/28/2018 23:59:59 CLS Outpatient ISABELLE STANTON MD [facility] LAB CHRONIC PAIN,OBESITY,FATIGUE [id number] 03/14/2018 08:42:00 04/19/2018 13:29:00 DIS Outpatient CHER RAMÍREZ MD [facility] REHAB SUP GLENOID LABRUM LESION LT SHOULDER [id number] 03/21/2018 07:13:00 03/21/2018 23:59:59 CLS Outpatient ISABELLE STANTON MD [facility] RAD SCREENING [id number] 02/10/2018 17:24:00 02/10/2018 18:50:00 DIS Emergency DULCE DIAZ [facility] ER POST OP/L ARM INJ [id number] 01/03/2018 13:53:00 01/03/2018 23:59:59 CLS Outpatient ISABELLE STANTON MD [facility] RAD X-RAY OF LEFT SHOULDER [id number] 03/20/2017 08:31:00 03/20/2017 23:59:59 CLS Outpatient ISABELLE STANTON MD [facility] RAD SCREENING [id number] 04/11/2016 06:48:00 04/11/2016 09:00:00 DIS Outpatient RIVER FOLEY MD [facility] DYSPHAGIA [id number] 04/10/2016 05:40:00 04/10/2016 13:22:00 DIS Outpatient RIVER FOLEY MD [facility] PREOP DYSPHAGIA [id number] 03/02/2016 09:22:00 03/02/2016 23:59:59 CLS Outpatient ISABELLE STANTON MD [facility] RAD SCREENING [id number] 12/03/2015 09:15:00 12/03/2015 12:32:00 DIS Outpatient RIVER FOLEY MD [facility] DYSPHAGIA [id number] 11/30/2015 05:57:00 11/30/2015 15:08:00 DIS Outpatient RIVER FOLEY MD [facility] PREOP DYSPHAGIA [id number] 11/22/2015 16:09:00 11/22/2015 23:59:59 CLS Outpatient STEPHANIE SAMUELS APRN [facility] QUICK [id number] 07/26/2015 09:30:00 07/26/2015 23:59:59 CLS Outpatient ERIBERTO FRANCO MD [facility] RAD PERSISTANT COUGH [id number] 05/18/2015 16:26:00 05/18/2015 17:37:00 DIS Emergency JOSE C CAICEDO [facility] ER RASH [id number] 03/11/2015 14:16:00 03/11/2015 23:59:59 CLS Outpatient ERIBERTO FRANCO MD [facility] RAD SCREENING,PREVIOUS DISC POP,NEW PAIN L RADICULAR [id number] 10/31/2013 07:48:00 10/31/2013 12:47:00 DIS Outpatient RIVER FOLEY MD [facility] DIARRHEA;FAMILY HX COLON CA;DYSPHASIA [id number] 10/30/2013 09:16:00 10/30/2013 23:59:59 CLS Outpatient ERIBERTO FRANCO MD [facility] RAD SCREENING [id number] 10/30/2013 08:03:00 10/30/2013 23:59:59 CLS Outpatient RIVER FOLEY MD [facility] PREOP DIARRHEA;FAMILY HX COLON CA;DYSPHASIA [id number] 10/27/2013 12:43:00 10/27/2013 23:59:59 CLS Outpatient ERIBERTO FRANCO MD [facility] LAB YEAST INFECTION,FAMILY HX [id number] 12/17/2012 08:39:00 12/17/2012 23:59:59 CLS Outpatient [id number] 12/10/2018 07:30:00 PEN Preadmit RIVER FOLEY MD [facility] ENDO DYSPHAGIA [id number] 09/25/2012 08:52:00 Document Registration [id number] 05/29/2012 05:37:00 Document Registration [id number] 03/13/2012 12:24:00 Document Registration [id number] 02/14/2011 10:00:00 Document Registration [id number] 01/17/2011 12:36:00 Document Registration [id number] 01/03/2011 15:02:00 Document Registration [id number] 03/23/2010 09:33:00 Document Registration [id number] 11/26/2009 11:07:00 Document Registration
[2018-12-10 07:20] VITALS: BP 124/62
[2018-12-10] MEDS ORDERED: fentaNYL INJECTION 100 MCG/2 ML AMP ONE (07:28)
[2018-12-10] MEDS ORDERED: MIDAZOLAM 2 MG/2 ML (VERSED) VIAL ONE ×3 (07:28)
[2018-12-10] MEDS ORDERED: HURRICAINE EXT TUBE (BENZOCAINE) ONE (07:28)
[2018-12-10] MEDS ORDERED: LIDOCAINE JELLY 2% 6 ML SYRINGE ONE (07:29)
[2018-12-10] MEDS ORDERED: D5 LR IV SOLUTION 1,000 ML IV STA (07:33)
--- NOTE | 2018-12-10 07:38 | Pre-Op Note & Conscious Sedat ---
Pre-Operative Progress Note H&P Reviewed The H&P was reviewed, patient examined and no changes noted. Date H&P Reviewed: Dec 10, 2018 Time H&P Reviewed: 07:20 Conscious Sedation Pre-Proced ASA Score 2 For ASA 3 and 4: Consider anesthesia and medical clearance. Also, for patients with a history of failed moderate sedation consider anesthesia. Airway Lungs Heart ASA score ASA 1: a normal healthy patient ASA 2: a patient with a mild systemic disease (mid diabetes, controlled hypertension, obesity ASA 3: a patient with a severe systemic disease that limits activity (angina, COPD, prior Myocardial infarction) ASA 4: a patient with an incapacitating disease that is a constant threat to life (CHF, renal failure) ASA 5: a moribund patient not expected to survive 24 hrs. (ruptured aneurysm) ASA 6: a declared brain- patient whose organs are being harvested. For emergent operations, add the letter E after the classification Mallampati Classification Grade 2 Sedation Plan Analgesia, Amnesia, Plan communicated to team members, Discussed options with patient/fam, Discussed risks with patient/fam The patient is an appropriate candidate to undergo the planned procedure, sedation, and anesthesia. The patient immediately re-assessed prior to indication. RIVER FOLEY MD Dec 10, 2018 07:38
[2018-12-10] MEDS ORDERED: LIDOCAINE JELLY 2% 6 ML SYRINGE MM PRN (07:45)
[2018-12-10] MEDS ORDERED: MIDAZOLAM 2 MG/2 ML (VERSED) VIAL IVP ONE (07:45)
[2018-12-10] MEDS ORDERED: fentaNYL INJECTION 100 MCG/2 ML AMP IVP ONE (07:45)
[2018-12-10] MEDS ORDERED: HURRICAINE EXT TUBE (BENZOCAINE) XX PRN (07:45)
[2018-12-10 08:10] VITALS: BP 106/56
[2018-12-10 08:44] VITALS: BP 123/81
[2018-12-10 08:59] VITALS: BP 123/81
--- NOTE | 2018-12-10 12:54 | OPERATIVE REPORT ---
DATE OF SERVICE: 12/10/2018 ESOPHAGOGASTRODUODENOSCOPY SUMMARY INDICATION FOR THE PROCEDURE: Dysphagia, history of esophageal stricture. REFERRING PHYSICIAN: Dr. Manuel Raphael. DESCRIPTION OF PROCEDURE: The patient was placed in the left lateral decubitus position. The endoscope was inserted in the oral cavity and under direct visualization, the esophagus was intubated. The endoscope was passed down the esophagus through the stomach and second portion of the duodenum. A careful inspection was made as the endoscope was withdrawn. The patient tolerated the procedure well. FINDINGS: The posterior pharynx, arytenoid aperture, true and false vocal folds and epiglottis were unremarkable to visual inspection. The proximal and mid esophagus were unremarkable. There is no evidence for dilatation. Present at the Z line was a stricturing with the esophagus narrowing down about 1.5 cm in diameter. It was fixed, did not move with benign features. In the past, there has been appearance of a Schatzki ring, but on today's evaluation, this looked more like erosive esophagitis. There was a shallow erosion involving about 40% of the esophageal circumference and the area remained widely patent and fixed throughout viewing. Today, there did not appear to be any significant evidence for hiatal hernia and the cardia and fundus of the stomach were unremarkable. There is mild antral erythema, linear in nature was present and biopsy was obtained and submitted for histopathology and Helicobacter. Minimal amount of duodenitis was present without evidence for duodenal ulceration. Otherwise, the duodenal bulb and second portion of the duodenum were unremarkable as was the pylorus and the pyloric channel. ASSESSMENT AND PLAN: Esophageal stricturing secondary to reflux, questionable Schatzki ring on today's evaluation. The patient did undergo dilatation to a 60-Portuguese size with the balloon dilators for 60 seconds x2 with a usual amount of minimal bleeding post procedure and no reported patient's pain. She was discharged with stable vital signs. We discussed the importance of careful attention to mastication and slowing down her eating, especially with breads and solids. It was advised that she continue proton pump inhibitor therapy indefinitely. I thank you for the referral of this pleasant lady, who will likely at some point in the future require dilatation for dysphagia. She got about 2-1/2 years this time. Job ID: [id number] DocumentID: [id number] Dictated Date: 12/10/2018 08:12:14 Specimen Transporter Date: 12/10/2018 12:54:13 Dictated By: RIVER FOLEY MD
== END 2018-12-10 09:00 | disposition home or self-care (01) ==
LOC: ENDO 07:03
PROVIDERS: ATTEND Internal Medicine
DX: K22.2 Esophageal obstruction (principal); K21.0 Gastro-esophageal reflux disease with esophagitis; K22.10 Ulcer of esophagus without bleeding; K29.80 Duodenitis without bleeding; Z79.899 Other long term (current) drug therapy

== ENCOUNTER → 2018-12-30 | Outpatient (CLI) | payer MEDICARE, MEDICAID ==
[2018-12-30 08:59] LABS: BASOPHILS % (AUTO) 1 % (0-10); EOSINOPHILS # (AUTO) 0.2 10^3/uL (0.0-0.3); EOSINOPHILS % (AUTO) 3 % (0-10); HEMATOCRIT 44 % (35-52); HEMOGLOBIN 14.6 G/DL (11.5-16.0); LYMPHOCYTES # (AUTO) 1.6 X 10^3 (1.0-4.0); LYMPHOCYTES % (AUTO) 26 % (12-44); MEAN CORPUSCULAR HEMOGLOBIN 29 PG (25-34); MEAN CORPUSCULAR HGB CONC 33 G/DL (32-36); MEAN CORPUSCULAR VOLUME 87 FL (80-99); MEAN PLATELET VOLUME 9.6 FL (7.4-10.4); MONOCYTES # (AUTO) 0.3 X 10^3 (0.0-1.0); MONOCYTES % (AUTO) 5 % (0-12); NEUTROPHILS % (AUTO) 66 % (42-75); PLATELET COUNT 283 10^3/uL (130-400); RED CELL DISTRIBUTION WIDTH 13.1 % (10.0-14.5)
[2018-12-30 09:16] LABS: ALANINE AMINOTRANSFERASE 17 U/L (0-55); ALBUMIN 4.4 GM/DL (3.2-4.5); ALKALINE PHOSPHATASE 72 U/L (40-136); BILIRUBIN,TOTAL 0.4 MG/DL (0.1-1.0); BUN/CREATININE RATIO 16; CALCIUM 9.5 MG/DL (8.5-10.1); CARBON DIOXIDE 25 MMOL/L (21-32); CHLORIDE 104 MMOL/L (98-107); CREATININE SERUM 0.81 MG/DL (0.60-1.30); GFR ESTIMATED > 60; GLUCOSE 98 MG/DL (70-105); POTASSIUM 3.9 MMOL/L (3.6-5.0); SODIUM 137 MMOL/L (135-145); TOTAL PROTEIN 7.4 GM/DL (6.4-8.2)
== END ==
LOC: LAB 08:35
PROVIDERS: ATTEND Nurse Practitioner Family
DX: L40.0 Psoriasis vulgaris (principal); Z79.899 Other long term (current) drug therapy
CPT/HCPCS: 36415; 80053; 82746; 85025; 86480

== ENCOUNTER → 2019-03-24 | Outpatient (CLI) | payer MEDICARE, MEDICAID ==
[~2019-03-24] MED LIST changes: +RANI-613 PO; -RANI150T46 PO
--- NOTE | 2019-03-25 09:44 | Diagnostic Imaging Report ---
Digital mammogram, bilateral screening. The study was compared to prior exams of 03/21/2018, 03/20/2017 and 03/02/2016. At this time there are no current complaints. The current study was also evaluated with a Computer Aided Detection (CAD) system. FINDINGS: There are scattered fibroglandular densities in both breasts which could obscure a lesion. Overall, there does not appear to have been any significant change when compared to the prior exam. No primary or secondary sign of malignancy is noted. IMPRESSION: There is no radiographic evidence for malignancy. ACR BI-RADS Category 1: Negative. Result letter will be mailed to the patient. Note: At least 10% of breast cancer is not imaged by mammography. Dictated by: Dictated on workstation # [id number]
== END ==
LOC: RAD 07:24
PROVIDERS: ATTEND Family Medicine
DX: Z12.31 Encounter for screening mammogram for malignant neoplasm of breast (principal)
CPT/HCPCS: 77067

== ENCOUNTER 2019-04-05 02:59 | Emergency (ER) | payer MEDICARE, MEDICAID ==
[~2019-04-05] VITALS: Ht 175 cm; Wt 95.5 kg
[2019-04-05] MEDS ORDERED: CLOB15CR2 (03:21)
[2019-04-05] MEDS ORDERED: LACTATED RINGERS 1,000 ML IV ONE ×3 (03:24→05:37)
[2019-04-05 03:44] LABS: HEMOGLOBIN 14.7 G/DL (11.5-16.0); WHITE BLOOD COUNT 5.8 10^3/uL (4.3-11.0)
--- NOTE | 2019-04-05 03:44 | ED GI ---
General Chief Complaint: Abdominal/GI Problems Stated Complaint: DIARRHEA X 3 DAYS,DIZZY,PANTING,SWEATY Nursing Triage Note: c/o diarrhea x3 days, epigastric pain, dry lips, dizziness. Sepsis Screen: No Definite Risk Source of Information: Patient History of Present Illness Date Seen by Provider: Apr 05, 2019 Time Seen by Provider: 03:20 Initial Comments PT ARRIVES VIA POV FROM HOME C/O DIARRHEA SINCE Sunday04/02/19. STATES SHE WOKE UP AT 0017 TONIGHT, AND HAS HAD > 30 DIARRHEA STOOLS SINCE THEN. C/O EPIGASTRIC ACHING AND CRAMPING WHEN SHE HAS DIARRHEA HAS HAD OCCASIONAL NAUSEA, NO VOMITING C/O BILATERAL FLANK PAIN C/O ABDOMINAL BLOATING STATES SHE IS STILL URINATING BUT NOT MUCH. VOIDED ON ARRIVAL TO ER TEMP 98.9--STATES HER TEMP NORMALLY RUNS 95.9-96.9, AND WAS 95.1 PRIOR TO ARRIVAL STTES SHE HAS NOT HAD ANY FOOD SINCE YESTERDAY AT NOON, AND THE LAST FOOD PRIOR TO THAT WAS THE DAY BEFORE AT NOON IS DRINKING LIQUIDS, BUT STATES SOON SHE TAKES A SIP, IT CAUSES EPIGASTRIC PRESSURE AND IMMEDIATELY HAS DIARRHEA STATES SHE HAS BEEN VERY DIZZY, HAVING SWEATS, PANTING NO SICK CONTACTS OR SUSPICIOUS FOODS NO HISTORY OF SIMILAR NO RECENT ILLNESS OR ANTIBIOTIC USE. TOOK AN IMMODIUM A COUPLE OF DAYS AGO, BUT NONE SINCE PCP: DR. Barbara STANTON Allergies and Home Medications Allergies Coded Allergies: azithromycin (Unverified Allergy, Intermediate, N/V, ABD PAIN, 12/06/18) propoxyphene napsylate (Verified Allergy, Mild, 05/29/12) apremilast (Verified Allergy, Unknown, 04/05/19) Home Medications Alprazolam 0.25 Mg Tablet, 0.25 MG PO PRN, (Reported) Estrogens, Conjugated 0.625 Mg Tablet, 0.625 MG PO DAILY, (Reported) Hydrocodone Bit/Acetaminophen 1 Each Tablet, 1 TAB PO Q6H PRN for PAIN, (Reported) Hyoscyamine Sulfate 0.125 Mg Tab.subl, 1-2 TAB SL Q4H Prescribed by: CLEM CASTILLO on 04/05/19 0554 Lactobacillus Acidophilus 1 Each Capsule, 2 EACH PO QID Prescribed by: CLEM CASTILLO on 04/05/19 0554 Loperamide HCl 2 Mg Tablet, 2 MG PO NEEDED Prescribed by: CLEM CASTILLO on 04/05/19 0554 Sumatriptan Succinate 50 Mg Tablet, 50 MG PO PRN PRN for MIGRAINE, (Reported) Patient Home Medication List Home Medication List Reviewed: Yes Review of Systems Review of Systems Constitutional: see HPI, diaphoresis, dizziness EENTM: No Symptoms Reported Respiratory: See HPI Cardiovascular: Denies Chest Pain, Denies Edema; Lightheadedness; Denies Palpitations, Denies Syncope Gastrointestinal: See HPI, Abdomen Distended, Abdominal Pain; Denies Constipated; Diarrhea, Nausea, Poor Appetite, Poor Fluid Intake; Denies Rectal Bleeding, Denies Vomiting Genitourinary: See HPI Musculoskeletal: see HPI, back pain (HAS CHRONIC BACK PAIN--HAS HAD BACK SURGERY X 3, BUT IS WORSE THAN NORMAL, AND HAVING BILATERAL FLANK PAIN WELL. ) Skin: no symptoms reported Psychiatric/Neurological: See HPI, Anxiety; Denies Headache, Denies Numbness, Denies Paresthesia, Denies Seizure, Denies Tingling, Denies Weakness Endocrine: No Symptoms Reported Hematologic/Lymphatic: No Symptoms Reported Past Dpqlfcg-Egefwh-Fcmiro Hx Patient Social History Alcohol Use: Denies Use Recreational Drug Use: No Smoking Status: Never a Smoker 2nd Hand Smoke Exposure: No Recent Foreign Travel: No Contact w/Someone Who Travel: No Recent Infectious Disease Expo: No Recent Hopitalizations: No Physical Abuse: No Sexual Abuse: No Mistreated: No Fear: No Immunizations Up To Date Tetanus Booster (TDap): Unknown Date of Pneumonia Vaccine: October 31, 2008 Date of Influenza Vaccine: Apr 01, 2018 Seasonal Allergies Seasonal Allergies: Yes Past Medical History Surgeries: Yes ( SPINAL FUSION; BACK SURGERY X 3; SHOULDER SURGERY; EGD'S /ESOPHAGEAL DILATIONS) Gallbladder, Hysterectomy, Orthopedic Respiratory: No Currently Using CPAP: No Currently Using BIPAP: No Cardiac: No Neurological: Yes Headaches /Migraines, Neuropathy : No Reproductive Disorders: No Female Reproductive Disorders: Denies COMPENSATION AND BENEFITS ANALYST History: Hysterectomy Sexually Transmitted Disease: No HIV/AIDS: No Genitourinary: No Gastrointestinal: Yes (ESOPHAGEAL STRICTURES--S/P MULTIPLE DILATIONS) Gastroesophageal Reflux, Irritable Bowel Musculoskeletal: Yes (BACK SURGERY X 3) Degenerate Disk Disease, Chronic Back Pain Endocrine: No HEENT: No Loss of Vision: Denies Hearing Impairment: Denies Cancer: No Psychosocial: Yes Anxiety Integumentary: Yes Psoriasis Blood Disorders: No Adverse Reaction/Blood Tranf: No (N/A) Family Medical History No Pertinent Family Hx Physical Exam Vital Signs Vital Signs - First Documented 04/05/19 03:12 Temp 36.4 Pulse 106 Resp 18 B/P (MAP) 97/60 (72) Pulse Ox 97 O2 Delivery Room Air Capillary Refill : Less Than 3 Seconds Height/Weight/BMI Height: 5'9.00" Weight: 212lbs. 0.0oz. 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, no motor/sensory deficits, alert, oriented x 3 Skin: normal color, warm/dry Progress/Results/Core Measures Results/Orders Lab Results Laboratory Tests Test 04/05/19 03:30 04/05/19 05:50 Range/Units White Blood Count 5.8 4.3-11.0 10^3/uL Red Blood Count 5.08 4.35-5.85 10^6/uL Hemoglobin 14.7 11.5-16.0 G/DL Hematocrit 43 35-52 % Mean Corpuscular Volume 85 80-99 FL Mean Corpuscular Hemoglobin 29 25-34 PG Mean Corpuscular Hemoglobin Concent 34 32-36 G/DL Red Cell Distribution Width 14.1 10.0-14.5 % Platelet Count 253 130-400 10^3/uL Mean Platelet Volume 9.7 7.4-10.4 FL Neutrophils (%) (Auto) 67 42-75 % Lymphocytes (%) (Auto) 24 12-44 % Monocytes (%) (Auto) 8 0-12 % Eosinophils (%) (Auto) 1 0-10 % Basophils (%) (Auto) 1 0-10 % Neutrophils # (Auto) 3.9 1.8-7.8 X 10^3 Lymphocytes # (Auto) 1.4 1.0-4.0 X 10^3 Monocytes # (Auto) 0.4 0.0-1.0 X 10^3 Eosinophils # (Auto) 0.1 0.0-0.3 10^3/uL Basophils # (Auto) 0.0 0.0-0.1 10^3/uL Sodium Level 139 135-145 MMOL/L Potassium Level 3.5 L 3.6-5.0 MMOL/L Chloride Level 107 98-107 MMOL/L Carbon Dioxide Level 18 L 21-32 MMOL/L Anion Gap 14 5-14 MMOL/L Blood Urea Nitrogen 14 7-18 MG/DL Creatinine 0.86 0.60-1.30 MG/DL Estimat Glomerular Filtration Rate > 60 BUN/Creatinine Ratio 16 Glucose Level 99 70-105 MG/DL Calcium Level 8.8 8.5-10.1 MG/DL Corrected Calcium 8.6 8.5-10.1 MG/DL Magnesium Level 1.9 1.6-2.4 MG/DL Total Bilirubin 0.3 0.1-1.0 MG/DL Aspartate Amino Transf (AST/SGOT) 27 5-34 U/L Alanine Aminotransferase (ALT/SGPT) 33 0-55 U/L Alkaline Phosphatase 76 40-136 U/L Total Protein 7.4 6.4-8.2 GM/DL Albumin 4.2 3.2-4.5 GM/DL Amylase Level 24 L 25-125 U/L Lipase 15 8-78 U/L Urine Color YELLOW Urine Clarity CLEAR Urine pH 6 5-9 Urine Specific [place] 1.010 L 1.016-1.022 Urine Protein NEGATIVE NEGATIVE Urine Glucose (UA) NEGATIVE NEGATIVE Urine Ketones NEGATIVE NEGATIVE Urine Nitrite NEGATIVE NEGATIVE Urine Bilirubin NEGATIVE NEGATIVE Urine Urobilinogen NORMAL NORMAL MG/DL Urine Leukocyte Esterase NEGATIVE NEGATIVE Urine RBC (Auto) NEGATIVE NEGATIVE Urine RBC NONE /HPF Urine WBC NONE /HPF Urine Squamous Epithelial Cells NONE /HPF Urine Crystals NONE /LPF Urine Bacteria TRACE /HPF Urine Casts NONE /LPF Urine Mucus NEGATIVE /LPF Urine Culture Indicated NO Micro Results Microbiology 04/05/19 Stool Culture - Preliminary, Resulted 04/05/19 C. difficile GDH Antigen & Toxins - Final, Complete My Orders Orders - JONATHAN,CLEM K DO Ed Iv/Invasive Line Start (04/05/19 03:24) Monitor-Rhythm Ecg Trace Only (04/05/19 03:24) Amylase (04/05/19 03:24) Cbc With Automated Diff (04/05/19 03:24) Comprehensive Metabolic Panel (04/05/19 03:24) Lipase (04/05/19 03:24) Magnesium (04/05/19 03:24) Ua Culture If Indicated (04/05/19 03:24) Ed Iv/Invasive Line Start (04/05/19 03:24) Ed Iv/Invasive Line Start (04/05/19 03:24) Lactated Ringers (Lr 1000 Ml Iv Solution (04/05/19 03:24) Loperamide Tablet (Imodium Tablet) (04/05/19 03:45) Stool Culture (04/05/19 03:49) Fecal Wbc (04/05/19 03:49) C Difficile Ag + Toxin A/B. (04/05/19 03:49) Ct Abdomen/Pelvis Wo (04/05/19 03:52) Acute Abd Series (04/05/19 03:52) Ed Iv/Invasive Line Start (04/05/19 04:02) Lactated Ringers (Lr 1000 Ml Iv Solution (04/05/19 04:02) Loperamide Tablet (Imodium Tablet) (04/05/19 04:30) Ed Iv/Invasive Line Start (04/05/19 05:37) Lactated Ringers (Lr 1000 Ml Iv Solution (04/05/19 05:37) Straight Cath For Spec.-Adult (04/05/19 05:48) Medications Given in ED Vital Signs/I&O 04/05/19 04/05/19 03:12 06:27 Temp 36.4 36.3 Pulse 106 76 Resp 18 23 B/P (MAP) 97/60 (72) 94/55 Pulse Ox 97 99 O2 Delivery Room Air Room Air Blood Pressure Mean: 72 Progress Progress Note : Progress Note PT HAD MULTIPLE STOOLS DURING ER STAY. SENT TO LAB FOR CULTURES PT GIVEN 3 LITERS OF FLUIDS AND 2 DOSES OF IMODIUM PT IS HAVING DECREASED NUMBER OF STOOLS, AND IS FEELING BETTER PT STATES HER BP IS NORMALLY IN LOW 100'S SYSTOLIC. 101-107 ON AVERAGE PT IS FEELING MUCH BETTER ON DISMISSAL. FEELS COMFORTABLE GOING HOME. PT ADVISED TO RETURN TO ER IF SYMPTOMS WORSEN Diagnostic Imaging Comments ABDOMEN XRAYS--NO ACUTE PROCESS, PENDING RADIOLOGIST REVIEW CT ABDOMEN/PELVIS--NO ACUTE PROCESS, PER [facility] VIA FAX AT [id number] Reviewed: Reviewed by Me Departure Impression Primary Impression: Diarrhea Additional Impression: Dehydration Disposition: HOME, SELF-CARE Condition: Improved Departure-Patient Inst. Referrals: ISABELLE STANTON MD (PCP/Family) Primary Care Physician Patient Instructions: Dehydration, Adult (DC), Diarrhea in Adolescents and Adults, Viral Gastroenteritis, Adult (DC) Add. Discharge Instructions: CLEAR LIQUIDS--WATER, BROTH, JELLO, GATORADE BRATS DIET--BANANAS, RICE, APPLESAUCE, TOAST, SALTINES TYLENOL AND MOTRIN NEEDED FOR PAIN OR FEVER FOLLOW UP WITH YOUR DR ON SUNDAY IF NO BETTER, RETURN TO ER IF WORSE All discharge instructions reviewed with patient and/or family. Voiced understanding. Scripts Loperamide HCl (Imodium A-D) 2 Mg Tablet 2 MG PO NEEDED, #10 TAB Prov: CLEM CASTILLO DO 04/05/19 Hyoscyamine Sulfate (Levsin-Sl) 0.125 Mg Tab.subl 1-2 TAB SL Q4H for Abdominal Pain, #15 TAB Prov: CLEM CASTILLO DO 04/05/19 Lactobacillus Acidophilus (Acidophilus) 1 Each Capsule 2 EACH PO QID, #80 CAP Prov: CLEM CASTILLO DO 04/05/19 CLEM CASTILLO DO Apr 05, 2019 03:44
[2019-04-05 03:45] LABS: BASOPHILS % (AUTO) 1 % (0-10); EOSINOPHILS # (AUTO) 0.1 10^3/uL (0.0-0.3); EOSINOPHILS % (AUTO) 1 % (0-10); HEMATOCRIT 43 % (35-52); LYMPHOCYTES # (AUTO) 1.4 X 10^3 (1.0-4.0); LYMPHOCYTES % (AUTO) 24 % (12-44); MEAN CORPUSCULAR HEMOGLOBIN 29 PG (25-34); MEAN CORPUSCULAR HGB CONC 34 G/DL (32-36); MEAN CORPUSCULAR VOLUME 85 FL (80-99); MEAN PLATELET VOLUME 9.7 FL (7.4-10.4); MONOCYTES # (AUTO) 0.4 X 10^3 (0.0-1.0); MONOCYTES % (AUTO) 8 % (0-12); NEUTROPHILS # (AUTO) 3.9 X 10^3 (1.8-7.8); NEUTROPHILS % (AUTO) 67 % (42-75); PLATELET COUNT 253 10^3/uL (130-400); RED CELL DISTRIBUTION WIDTH 14.1 % (10.0-14.5)
[2019-04-05] MEDS ORDERED: LOPERAMIDE 2 MG (IMODIUM) TABLET PO ONE ×2 (03:45→04:30)
[2019-04-05 04:07] LABS: ALANINE AMINOTRANSFERASE 33 U/L (0-55); ALBUMIN 4.2 GM/DL (3.2-4.5); ALKALINE PHOSPHATASE 76 U/L (40-136); AMYLASE 24 U/L (25-125); BILIRUBIN,TOTAL 0.3 MG/DL (0.1-1.0); BUN/CREATININE RATIO 16; CALCIUM 8.8 MG/DL (8.5-10.1); CARBON DIOXIDE 18 MMOL/L (21-32); CHLORIDE 107 MMOL/L (98-107); CREATININE SERUM 0.86 MG/DL (0.60-1.30); GFR ESTIMATED > 60; GLUCOSE 99 MG/DL (70-105); LIPASE 15 U/L (8-78); MAGNESIUM 1.9 MG/DL (1.6-2.4); POTASSIUM 3.5 MMOL/L (3.6-5.0); SODIUM 139 MMOL/L (135-145); TOTAL PROTEIN 7.4 GM/DL (6.4-8.2)
[2019-04-05] MEDS ORDERED: LACT1CAP8 PO (05:54)
[2019-04-05] MEDS ORDERED: LOPE-134 PO (05:54)
[2019-04-05] MEDS ORDERED: HYOS0.1283 SL (05:54)
--- NOTE | 2019-04-05 06:16 | Diagnostic Imaging Report ---
CLINICAL INDICATION: Patient with diarrhea x3 days and epigastric pain. EXAMS: X-ray of the chest PA view and x-ray of the abdomen supine and upright views. COMPARISONS: X-ray of the chest and abdomen dated 09/25/2012. FINDINGS: LUNGS/ PLEURA: Lungs are clear. There is no pneumothorax. There is no pleural effusion. MEDIASTINUM: Unremarkable. PULMONARY VASCULATURE: Unremarkable. HEART: Unremarkable. BONES/ EXTRATHORACIC SOFT TISSUE: L5-S1 posterior fusion hardware is seen. There are small spurs involving the visualized thoracic and lumbar spine. ABDOMEN AND PELVIS: Unremarkable x-ray of the abdomen with nonobstructed bowel gas pattern. There is no evidence of abdominal free air. Surgical clips are seen overlying the right upper quadrant which could be related to cholecystectomy changes. There are no focal calcifications overlying the expected regions/ pathways of both kidneys, ureters, and bladder regions. IMPRESSION: 1: Unremarkable chest x-ray exam with no radiographic evidence of acute cardiopulmonary process. 2: Unremarkable x-ray of the abdomen. Dictated by: Dictated on workstation # [id number]
[2019-04-05 06:25] LABS: BACTERIA,URINE TRACE /HPF; BILIRUBIN,URINE NEGATIVE (NEGATIVE); CLARITY,URINE CLEAR; COLOR,URINE YELLOW; GLUCOSE, URINE (UA) NEGATIVE (NEGATIVE); KETONES,URINE NEGATIVE (NEGATIVE); LEUKOCYTE ESTERASE ,URINE NEGATIVE (NEGATIVE); NITRITE,URINE NEGATIVE (NEGATIVE); PH,URINE 6 (5-9); PROTEIN,URINE NEGATIVE (NEGATIVE); UROBILINOGEN,URINE NORMAL (NORMAL)
[2019-04-05 06:27] VITALS: BP 94/55
--- NOTE | 2019-04-05 06:50 | Diagnostic Imaging Report ---
PROCEDURE: CT abdomen and pelvis without contrast. TECHNIQUE: Multiple contiguous axial images were obtained through the abdomen and pelvis without the use of intravenous contrast. Auto Exposure Controls were utilized during the CT exam to meet ALARA standards for radiation dose reduction. INDICATION: Diarrhea for 3 days and epigastric pain. Comparison is made with prior CT from 09/25/2012. The lung bases are clear. Liver is unremarkable. Gallbladder is surgically absent. No biliary ductal dilatation is identified. The pancreas and spleen are unremarkable. No adrenal mass is detected. No renal calculi or hydronephrosis is detected. Aorta is nonaneurysmal. Small and large bowel loops are normal in caliber. Appendix is unremarkable. There is no free fluid or fluid collection. The bladder is unremarkable. Bony structures are nonacute. There are postoperative changes of lower lumbar spine and a posterior instrumented fusion. IMPRESSION: Unremarkable noncontrast CT of the abdomen and pelvis. No acute feature is detected. Dictated by: Dictated on workstation # [id number]
== END 2019-04-05 06:27 | disposition home or self-care (01) ==
LOC: EDUNIT# 02:59 → ER 03:01
DX: R19.7 Diarrhea, unspecified (principal); E86.0 Dehydration; G43.909 Migraine, unspecified, not intractable, without status migrainosus; G62.9 Polyneuropathy, unspecified; K21.9 Gastro-esophageal reflux disease without esophagitis; K58.9 Irritable bowel syndrome, unspecified; F41.9 Anxiety disorder, unspecified; Z88.1 Allergy status to other antibiotic agents; Z88.8 Allergy status to other drugs, medicaments and biological substances; Z90.710 Acquired absence of both cervix and uterus
CPT/HCPCS: 36415; 51701; 74022; 74176; 80053; 81000; 82150; 83690; 83735; 85025; 87015; 87045; 87046; 87324; 87449; 87899; 93041; 96360; 96361

== ENCOUNTER → 2019-04-30 | Outpatient (CLI) | payer MEDICARE, MEDICAID ==
[~2019-04-30] MED LIST changes: +CLOB15CR2; +HYOS0.1283 SL; +LACT1CAP8 PO; +LOPE-134 PO
[2019-04-30 13:04] LABS: FREE T4 (FREE THYROXINE) 0.87 NG/DL (0.70-1.48)
== END ==
LOC: LAB 12:11
PROVIDERS: ATTEND Family Medicine
DX: R53.83 Other fatigue (principal); R94.6 Abnormal results of thyroid function studies
CPT/HCPCS: 36415; 84439; 84443

== ENCOUNTER → 2019-10-14 | Outpatient (CLI) | payer MEDICARE, MEDICAID | LOC: LAB 09:54 | PROVIDERS: ATTEND Family Medicine | DX: K58.2 Mixed irritable bowel syndrome (principal); R14.0 Abdominal distension (gaseous) | CPT/HCPCS: 36415; 82784; 83516; 83520; 85652 ==

== ENCOUNTER 2019-11-07 07:41 | Outpatient (RCR) | payer MEDICARE, MEDICAID ==
--- NOTE | 2019-11-06 10:56 | HISTORY AND PHYSICAL ---
DATE OF SERVICE: ESOPHAGOGASTRODUODENOSCOPY HISTORY AND PHYSICAL HISTORY OF PRESENT ILLNESS: The patient is a 44-year-old white female, referred by Dr. Manuel Raphael for EGD for evaluation of dysphagia. She reportedly had a history of Schatzki ring, but when I have scoped her in the past, it had more the appearance of erosive esophagitis with stricturing. She has got a year without symptoms of dysphagia, but over the past month, has been developing progressive dysphagia to solids, predominantly breads and meats. She for the most part avoids red meat but is having difficulty with chicken breast. She has not had any regurgitation, denies choking or coughing problems. PAST MEDICAL HISTORY: significant for degenerative disk disease for which she has had several back surgeries and is on disability. She has history of longstanding psoriasis for which she has recently been taking Humira and reports good control with this. She also has history of migraine headache. PAST SURGICAL HISTORY: Other than back surgery is pertinent for cholecystectomy [place] [address] Franks. SOCIAL HISTORY: She has no past smoking history or any significant alcohol intake. Disabled secondary to multiple back surgeries due to degenerative disk disease. PHYSICAL EXAMINATION: GENERAL: Reveals a white female who did not appear to be in acute distress. VITAL SIGNS: Weight 223 pounds, which was up 11 pounds from our last office weight in 2013. HEENT: Unremarkable. She has a Mallampati 2 oropharyngeal configuration. CHEST: Clear to auscultation. CARDIOVASCULAR: Revealed a regular rate and rhythm without murmur, S3 or S4. ABDOMEN: Soft, supple without mass, organomegaly or tenderness. EXTREMITIES: Reveal no cyanosis, clubbing or edema. ASSESSMENT AND PLAN: The patient was set up for EGD with likely dilatation to follow for evaluation of dysphagia. Currently, she is just taking Pepcid 20 mg in the morning and we will make further medication recommendation based on EGD findings. I thank you for the referral of this pleasant lady. Job ID: [id number] DocumentID: [id number] Dictated Date: 11/05/2019 09:49:07 High School Chemistry Teacher Date: 11/05/2019 10:48:40 Dictated By: RIVER FOLEY MD
[~2019-11-07] VITALS: Ht 175.3 cm; Wt 101.4 kg
[~2019-11-07 07:41] MED LIST changes: +ADAL40SY SQ; +FAMO20TA3 PO
== END 2019-11-10 09:35 | disposition home or self-care (01) ==
LOC: PREOP 07:41
PROVIDERS: ATTEND Internal Medicine
DX: Z01.818 Encounter for other preprocedural examination (principal); Z01.812 Encounter for preprocedural laboratory examination; R13.10 Dysphagia, unspecified; Z11.59 Encounter for screening for other viral diseases
CPT/HCPCS: 87635

== ENCOUNTER 2020-01-02 05:16 | Emergency (ER) | payer MEDICARE, MEDICAID ==
[~2020-01-02] VITALS: Ht 175.3 cm; Wt 95.3 kg
[2020-01-02] MEDS ORDERED: NS IV 1000 ML 1,000 ML IV ONE (05:33)
[2020-01-02] MEDS ORDERED: KETOROLAC 30 MG/ML VIAL IVP ONE (05:45)
[2020-01-02] MEDS ORDERED: ORPHENADRINE 60 MG/2 ML (NORFLEX) AMP (ED ONLY) IV ONE (05:45)
[2020-01-02] MEDS ORDERED: PROMETHAZINE INJ 25 MG/ML (PHENERGAN) AMP IVP ONE (05:45)
--- NOTE | 2020-01-02 05:48 | ED Head Injury ---
General Chief Complaint: Head/Cervical Problems Stated Complaint: MIGRAINE Nursing Triage Note: pt reports having a migraine that started shortly before 0300. pt has taken 50mg Imitrex and 500mg of naproxen. Pt had pain between shoulder blades before going to bed and applied voltaren gel. Source: patient Exam Limitations: no limitations History of Present Illness Date Seen by Provider: Jan 02, 2020 Time Seen by Provider: 05:27 Initial Comments This 44 year old woman presents to the ER with migraine and associated nausea. She is tearful. Headache started around 03:00. She took Imitrex and naproxen shortly thereafter. She reports having upper back pain last night and her rubbed faltering gel on the area. She thinks perhaps the backache triggered the migraine. She denies visual aura. Headache seems to be primarily in the frontal region. Allergies and Home Medications Allergies Coded Allergies: azithromycin (Unverified Allergy, Intermediate, N/V, ABD PAIN, 12/06/18) propoxyphene napsylate (Verified Allergy, Mild, 05/29/12) apremilast (Verified Allergy, Unknown, 04/05/19) Home Medications Adalimumab 40 Mg/0.4 Ml Syringekit, 40 MG SQ q 2 weeks, (Reported) Alprazolam 0.25 Mg Tablet, 0.25 MG PO DAILY PRN for ANXIETY, (Reported) Estrogens, Conjugated 0.625 Mg Tablet, 0.625 MG PO DAILY, (Reported) Famotidine 20 Mg Tablet, 20 MG PO DAILY, (Reported) Hydrocodone Bit/Acetaminophen 1 Each Tablet, 1 TAB PO Q6H PRN for PAIN, (Reported) Sumatriptan Succinate 50 Mg Tablet, 50 MG PO PRN PRN for MIGRAINE, (Reported) Patient Home Medication List Home Medication List Reviewed: Yes Review of Systems Review of Systems Constitutional: no symptoms reported Eyes: No Symptoms Reported Ears, Nose, Mouth, Throat: no symptoms reported Respiratory: no symptoms reported Cardiovascular: no symptoms reported Gastrointestinal: see HPI Genitourinary: no symptoms reported : No Musculoskeletal: see HPI Skin: no symptoms reported Psychiatric/Neurological: See HPI Endocrine: No Symptoms Reported Hematologic/Lymphatic: No Symptoms Reported Past Idngiwv-Gnioxq-Jcazrk Hx Past Med/Social Hx: Reviewed Nursing Past Med/Soc Hx Patient Social History Alcohol Use: Denies Use Recreational Drug Use: No 2nd Hand Smoke Exposure: No Recent Foreign Travel: No Contact w/Someone Who Travel: No Recent Infectious Disease Expo: No Recent Hopitalizations: No Immunizations Up To Date Tetanus Booster (TDap): Unknown Date of Pneumonia Vaccine: October 31, 2008 Date of Influenza Vaccine: Apr 01, 2019 Seasonal Allergies Seasonal Allergies: Yes Past Medical History Surgeries: No (spinal fusion, microdiscectomy x2, left shoulder scope) Gallbladder, Hysterectomy, Orthopedic Respiratory: No Currently Using CPAP: No Currently Using BIPAP: No Cardiac: No Neurological: Yes Headaches /Migraines, Neuropathy Reproductive Disorders: No Female Reproductive Disorders: Denies [employer] History: Hysterectomy Sexually Transmitted Disease: No HIV/AIDS: No Genitourinary: No Gastrointestinal: Yes (ESOPHAGEAL STRICTURES--S/P MULTIPLE DILATIONS) Gastroesophageal Reflux, Irritable Bowel Musculoskeletal: Yes (BACK SURGERY X 3) Degenerate Disk Disease, Chronic Back Pain Endocrine: No HEENT: No Loss of Vision: Denies Hearing Impairment: Denies Cancer: No Psychosocial: Yes Anxiety Integumentary: Yes Psoriasis Blood Disorders: No Adverse Reaction/Blood Tranf: No (N/A) Family Medical History No Pertinent Family Hx Physical Exam Vital Signs Vital Signs - First Documented 01/02/20 05:29 Temp 35.8 Pulse 80 Resp 20 B/P (MAP) 141/110 (120) Pulse Ox 99 Capillary Refill : Less Than 3 Seconds Height, Weight, BMI Height: 5'9.00" Weight: 212lbs. 0.0oz. 96.613137zm; 31.00 BMI Method:Stated General Appearance: WD/WN, moderate distress (crying) HEENT: PERRL/EOMI, normal ENT inspection Neck: normal inspection Cardiovascular: regular rate, rhythm, no edema, no murmur Respiratory: lungs clear, normal breath sounds, no respiratory distress, no accessory muscle use Back: other (tenderness in the musculature between the scapula and spine on the left) Extremities: normal inspection, no pedal edema Psychiatric: alert, oriented x 3 Crainal Nerves: normal hearing, normal speech, PERRL Motor/Sensory: no motor deficit, no sensory deficit Skin: normal color, warm/dry [place] Coma Score Best Eye Response: (4) Open Spontaneously Best Verbal Response: (5) Oriented Best Motor Response: (6) Obeys Commands Aneesh Total: 15 Progress/Results/Core Measures Results/Orders My Orders Orders - TEREZA MELLO MD Ed Iv/Invasive Line Start (01/02/20 05:33) Ns Iv 1000 Ml (Sodium Chloride 0.9%) (01/02/20 05:33) Promethazine Injection (Phenergan Injec (01/02/20 05:45) Ketorolac Injection (Toradol Injection) (01/02/20 05:45) Orphenadrine Inj (Ed Only) (Norflex Inje (01/02/20 05:45) Medications Given in ED Current Medications Medications Dose Ordered Sig/Juwan Route Start Time Stop Time Status Last Admin Dose Admin Ketorolac Tromethamine 15 mg ONCE ONCE IVP 01/02/20 05:45 01/02/20 05:46 DC 01/02/20 05:44 15 MG Orphenadrine Citrate 60 mg ONCE ONCE IV 01/02/20 05:45 01/02/20 05:46 DC 01/02/20 05:45 60 MG Promethazine HCl 25 mg ONCE ONCE IVP 01/02/20 05:45 01/02/20 05:46 DC 01/02/20 05:43 25 MG Sodium Chloride 1,000 ml @ 0 mls/hr Q0M ONCE IV 01/02/20 05:33 01/02/20 05:35 DC 01/02/20 05:42 1,000 MLS/HR Vital Signs/I&O 01/02/20 05:29 Temp 35.8 Pulse 80 Resp 20 B/P (MAP) 141/110 (120) Pulse Ox 99 Blood Pressure Mean: 120 Progress Progress Note : Time: 06:00 Progress Note Patient was seen and examined upon arrival. She is being treated with Toradol, Phenergan, IV fluids, and Norflex. Care is being transitioned to Dr. Sharma at this time. Departure Impression Primary Impression: Migraine headache Qualified Codes: G43.909 - Migraine, unspecified, not intractable, without status migrainosus Additional Impression: Upper back pain on left side Disposition: 01 HOME, SELF-CARE Condition: Improved Departure-Patient Inst. Decision time for Depature: 06:02 Referrals: ISABELLE STANTON MD (PCP/Family) Primary Care Physician Patient Instructions: Migraines in Adults Add. Discharge Instructions: Drink plenty of clear liquids. Rest in a quiet, calm, dark place this morning. For pain you may take Naproxen up to 500 mg twice daily and Tylenol (acetaminophen) up to 1000 mg every 6 hours. Use cyclobenzaprine as prescribed for muscle spasms and tension. Return to care if you have any further problems or concerns. Follow-up with your primary care provider to discuss further migraine prevention and treatment. All discharge instructions reviewed with patient and/or family. Voiced understanding. Scripts Cyclobenzaprine HCl (Cyclobenzaprine HCl) 10 Mg Tablet 10 MG PO Q8H PRN for SPASMS, #10 TAB 0 Refills Prov: TEREZA MELLO MD 01/02/20 TEREZA MELLO MD Jan 02, 2020 05:48
[2020-01-02] MEDS ORDERED: CYCL10TA9 PO (06:09)
[2020-01-02 06:20] VITALS: BP 140/95
== END 2020-01-02 06:26 | disposition home or self-care (01) ==
LOC: EDUNIT# 05:16 → ER 05:18
DX: G43.909 Migraine, unspecified, not intractable, without status migrainosus (principal); M54.6 Pain in thoracic spine; K21.9 Gastro-esophageal reflux disease without esophagitis; F41.9 Anxiety disorder, unspecified; G89.29 Other chronic pain; R40.2142 Coma scale, eyes open, spontaneous, at arrival to emergency department; R40.2252 Coma scale, best verbal response, oriented, at arrival to emergency department; R40.2362 Coma scale, best motor response, obeys commands, at arrival to emergency department; Z79.891 Long term (current) use of opiate analgesic; Z88.1 Allergy status to other antibiotic agents; Z88.8 Allergy status to other drugs, medicaments and biological substances
CPT/HCPCS: 99281

== ENCOUNTER → 2020-05-03 | Outpatient (CLI) | payer MEDICARE, MEDICAID ==
[~2020-05-03] MED LIST changes: +ALPR.25T PO; -ALPR0.254 PO; -PANT40TA3 PO; +PANT40TA52 PO
--- NOTE | 2020-05-03 11:21 | Diagnostic Imaging Report ---
INDICATION: Routine screening. COMPARISON: 03/24/2019, 03/21/2018. TECHNIQUE: 2D and 3D bilateral screening mammography was performed with CAD. FINDINGS: Scattered fibroglandular densities are identified bilaterally. The parenchymal pattern is stable. No mass or malignant appearing microcalcifications are seen. The axillae are unremarkable. IMPRESSION: No mammographic features suspicious for malignancy are identified. ACR BI-RADS Category 1: Negative. Result letter will be mailed to the patient. Note: At least 10% of breast cancer is not imaged by mammography. Dictated by: Dictated on workstation # [id number]
== END ==
LOC: RAD 07:30
PROVIDERS: ATTEND Family Medicine
DX: Z12.31 Encounter for screening mammogram for malignant neoplasm of breast (principal)
CPT/HCPCS: 77063; 77067

== ENCOUNTER 2020-08-04 05:32 | Outpatient (RCR) | payer MEDICARE, MEDICAID ==
[~2020-08-04] VITALS: Ht 68 cm; Wt 99.0 kg
[~2020-08-04 05:32] MED LIST changes: +NAPR250T6 PO; +ONAB100V IJ
== END 2020-08-04 13:33 | disposition home or self-care (01) ==
LOC: PREOP 05:32
PROVIDERS: ATTEND Internal Medicine
DX: Z01.812 Encounter for preprocedural laboratory examination (principal); R13.10 Dysphagia, unspecified; Z20.822 Contact with and (suspected) exposure to COVID-19
CPT/HCPCS: 87635

== ENCOUNTER 2020-08-06 07:03 | Day surgery (SDC) | payer MEDICARE, MEDICAID ==
--- NOTE | 2020-08-02 21:22 | HISTORY AND PHYSICAL ---
DATE OF SERVICE: EGD HISTORY AND PHYSICAL HISTORY OF PRESENT ILLNESS: The patient is a 45-year-old white female with known reflux related stricturing who has noted recurrence of dysphagia with some intermittent regurgitation getting worse over the past 2 months. It is only occurring with solids and not liquids and she has not noted abdominal pain, melena or bright red blood per rectum. She has been taking Pepcid 20 mg twice daily. She last underwent EGD evaluation in 10/2019 at which time she was noted to have a benign-appearing stricture without active ulceration. She underwent dilatation, had resolution of her symptoms. The patient reports no change in health status. PAST SURGICAL HISTORY: Significant for cholecystectomy [place] [address] Franks. She has had several back surgeries for which she has received disability and she has had longstanding psoriasis for which she takes Humira with good control. PHYSICAL EXAMINATION: GENERAL: Reveals a pleasant white female in no acute distress. VITAL SIGNS: Weight at 222 pounds, was only down 1 pound from previous weight in 10/2019. HEENT: Unremarkable. CHEST: Clear. CARDIOVASCULAR: Regular rate and rhythm without murmur, S3 or S4. ABDOMEN: Soft, supple without mass, organomegaly or tenderness. EXTREMITIES: Reveal no cyanosis, clubbing or edema. ASSESSMENT AND PLAN: Likely recurrent stricture formation secondary to dysphagia. Advised the patient to initiate pantoprazole 40 mg in the morning and this Sunday, we will plan EGD evaluation with likely dilatation to follow. The patient was warned about osteoporosis with long-term PPI therapy. She was advised to take 2000 units of vitamin D daily. She does not get along with calcium supplementation, so I advised increasing this in her diet. I thank you for the referral of this pleasant lady. Job ID: [id number] DocumentID: [id number] Dictated Date: 08/02/2020 20:40:26 Curator Of Education Date: 08/02/2020 21:21:45 Dictated By: RIVER FOLEY MD
[~2020-08-06] VITALS: Ht 68 cm; Wt 99.0 kg
[~2020-08-06 07:03] MED LIST changes: +LACTATED RINGERS 1,000 ML IV ONE
[2020-08-06] MEDS ORDERED: LACTATED RINGERS 1,000 ML IV STA (07:05)
[2020-08-06] MEDS ORDERED: MIDAZOLAM 2 MG/2 ML (VERSED) VIAL ONE (07:13)
[2020-08-06] MEDS ORDERED: proPOfol 200 MG/20 ML (DIPRIVAN) VIAL IV ONE (07:13)
[2020-08-06] MEDS ORDERED: LIDOCAINE JELLY 2% 6 ML SYRINGE MM PRN (07:15)
[2020-08-06] MEDS ORDERED: HURRICAINE EXT TUBE (BENZOCAINE) XX PRN (07:15)
[2020-08-06 07:16] VITALS: BP 126/79
[2020-08-06] MEDS ORDERED: HURRICAINE EXT TUBE (BENZOCAINE) ONE (07:57)
[2020-08-06] MEDS ORDERED: LIDOCAINE JELLY 2% 6 ML SYRINGE ONE (07:57)
[2020-08-06 08:20] VITALS: BP 100/58
[2020-08-06 08:25] VITALS: BP 107/67
--- NOTE | 2020-08-06 08:26 | Pre-Op Note & Conscious Sedat ---
Pre-Operative Progress Note H&P Reviewed The H&P was reviewed, patient examined and no changes noted. Date H&P Reviewed: Aug 06, 2020 Time H&P Reviewed: 07:30 Conscious Sedation Pre-Proced ASA Score 2 For ASA 3 and 4: Consider anesthesia and medical clearance. Also, for patients with a history of failed moderate sedation consider anesthesia. Airway Lungs Heart ASA score ASA 1: a normal healthy patient ASA 2: a patient with a mild systemic disease (mid diabetes, controlled hypertension, obesity ASA 3: a patient with a severe systemic disease that limits activity (angina, COPD, prior Myocardial infarction) ASA 4: a patient with an incapacitating disease that is a constant threat to life (CHF, renal failure) ASA 5: a moribund patient not expected to survive 24 hrs. (ruptured aneurysm) ASA 6: a declared brain- patient whose organs are being harvested. For emergent operations, add the letter E after the classification Mallampati Classification Grade 2 Sedation Plan Analgesia, Amnesia, Plan communicated to team members, Discussed options with patient/fam, Discussed risks with patient/fam The patient is an appropriate candidate to undergo the planned procedure, sedation, and anesthesia. The patient immediately re-assessed prior to indication. RIVER FOLEY MD Aug 06, 2020 08:26
[2020-08-06 08:30] VITALS: BP_SYST 101; BP_SYST 112; BP_DIAS 61; BP_DIAS 65
--- NOTE | 2020-08-06 08:50 | Anesthesia-General Post-Op ---
MAC Patient Condition Mental Status/LOC: Same as Preop Cardiovascular: Satisfactory Nausea/Vomiting: Absent Respiratory: Satisfactory Pain: Controlled Complications: Absent Post Op Complications Complications None Follow Up Care/Instructions Patient Instructions None needed. Anesthesiology Discharge Order Discharge Order Patient is doing well, no complaints, stable vital signs, no apparent adverse anesthesia problems. No complications reported per nursing. NORM WAGONER CRNA Aug 06, 2020 08:50
[2020-08-06 08:57] VITALS: BP 125/79
--- NOTE | 2020-08-06 15:24 | OPERATIVE REPORT ---
DATE OF SERVICE: 08/06/2020 ENDOSCOPY SUMMARY INDICATION FOR THE PROCEDURE: Dysphagia, history of distal esophageal benign stricturing due to reflux. DESCRIPTION OF PROCEDURE: The patient was placed in the left lateral decubitus position. The endoscope was inserted in the oral cavity and under direct visualization, esophagus was intubated. The endoscope was passed down the esophagus, stomach and second portion of the duodenum. Careful inspection was made as the endoscope was withdrawn. The patient tolerated the procedure well. FINDINGS: The posterior pharynx, epiglottis, arytenoid aperture and true and false vocal folds were unremarkable to visual inspection. Proximal and mid esophagus were unremarkable. There is a small hiatal hernia present with evidence for a benign-appearing stricture in LA grade A changes of erosive esophagitis. Photograph was obtained. The distal esophagus remained patent, albeit with narrowing to about 1.5 cm throughout entirety of the visualization. The cardia, fundus, antrum, pylorus, pyloric channel, duodenal bulb and second part were unremarkable except for several small benign fundal appearing polyps unchanged from past endoscopies. Photograph was obtained. We then placed the 20 mm balloon dilator across the stricture inflating to 6 atmospheres with a usual small amount of subsequent bleeding. There was no evidence for hemorrhage. Post-dilatation with less than a mL estimated blood loss. The patient tolerated the procedure well. Reporting no chest pain. ASSESSMENT AND PLAN: Benign-appearing peptic stricture again noted in the distal esophagus with a small hiatal hernia and LA grade A erosive esophagitis changes. The patient underwent balloon dilatation as noted above. She had been taking b.i.d., Pepcid, was advised to switch to pantoprazole 40 mg in the morning with antacid therapy for which she prefers Tums as needed for breakthrough symptoms. This will also give her calcium in addition to the vitamin D to help reduce the risk for osteoporosis. She will likely need lifelong proton pump inhibitor therapy. Her last need for dilatation was 9 months ago, hopefully on proton pump inhibitor therapy. She will get more time in between the need for dilatation. I thank you for the referral of this pleasant female. Job ID: [id number] DocumentID: [id number] Dictated Date: 08/06/2020 09:15:23 Material Handling Supervisor Date: 08/06/2020 15:24:45 Dictated By: RIVER FOLEY MD
== END 2020-08-06 09:10 | disposition home or self-care (01) ==
LOC: ENDO 07:03
PROVIDERS: ATTEND Internal Medicine
DX: K21.00 Gastro-esophageal reflux disease with esophagitis, without bleeding (principal); K44.9 Diaphragmatic hernia without obstruction or gangrene; K22.2 Esophageal obstruction; F41.9 Anxiety disorder, unspecified; G43.909 Migraine, unspecified, not intractable, without status migrainosus; M19.90 Unspecified osteoarthritis, unspecified site; G89.29 Other chronic pain; G62.9 Polyneuropathy, unspecified; Z79.899 Other long term (current) drug therapy; Z88.1 Allergy status to other antibiotic agents; Z88.8 Allergy status to other drugs, medicaments and biological substances
CPT/HCPCS: 88305

== ENCOUNTER → 2020-10-14 | Outpatient (CLI) | payer MEDICARE, MEDICAID ==
[~2020-10-14] MED LIST changes: -LACTATED RINGERS 1,000 ML IV ONE; +NAPR-1088 PO; -NAPR250T6 PO
[2020-10-14 08:58] LABS: BASOPHILS % (AUTO) 1 % (0-10); EOSINOPHILS # (AUTO) 0.2 10^3/uL (0.0-0.3); EOSINOPHILS % (AUTO) 3 % (0-10); HEMATOCRIT 43 % (35-52); HEMOGLOBIN 14.1 g/dL (11.5-16.0); LYMPHOCYTES # (AUTO) 2.5 10^3/uL (1.0-4.0); LYMPHOCYTES % (AUTO) 38 % (12-44); MEAN CORPUSCULAR HEMOGLOBIN 29 pg (25-34); MEAN CORPUSCULAR HGB CONC 33 g/dL (32-36); MEAN CORPUSCULAR VOLUME 88 fL (80-99); MONOCYTES # (AUTO) 0.3 10^3/uL (0.0-1.0); MONOCYTES % (AUTO) 4 % (0-12); NEUTROPHILS # (AUTO) 3.6 10^3/uL (1.8-7.8); NEUTROPHILS % (AUTO) 55 % (42-75); PLATELET COUNT 229 10^3/uL (130-400); WHITE BLOOD COUNT 6.5 10^3/uL (4.3-11.0)
[2020-10-14 09:20] LABS: ALKALINE PHOSPHATASE 73 U/L (40-136); BILIRUBIN,TOTAL 0.6 MG/DL (0.1-1.0); BUN/CREATININE RATIO 12; CALCIUM 8.9 MG/DL (8.5-10.1); CARBON DIOXIDE 21 MMOL/L (21-32); CHLORIDE 106 MMOL/L (98-107); CREATININE SERUM 0.75 MG/DL (0.60-1.30); GFR ESTIMATED > 60; GLUCOSE 95 MG/DL (70-105); POTASSIUM 3.8 MMOL/L (3.6-5.0); SODIUM 139 MMOL/L (135-145); TOTAL PROTEIN 7.2 GM/DL (6.4-8.2)
[2020-10-14 10:23] LABS: ALANINE AMINOTRANSFERASE < 30 U/L (0-55)
== END ==
LOC: LAB 08:37
PROVIDERS: ATTEND Nurse Practitioner Family
DX: L70.0 Acne vulgaris (principal); Z79.899 Other long term (current) drug therapy
CPT/HCPCS: 36415; 80053; 85025; 86480

== ENCOUNTER → 2021-05-04 | Outpatient (CLI) | payer MEDICARE, MEDICAID ==
--- NOTE | 2021-05-04 09:44 | Diagnostic Imaging Report ---
Indication: Routine screening. Comparison is made with prior mammogram 05/03/2020 and 03/24/2019. 2-D and 3-D bilateral screening mammography was performed with CAD. Scattered fibroglandular densities are identified bilaterally. The parenchymal pattern is stable. No mass or malignant-appearing microcalcifications are seen. Axillae are unremarkable. IMPRESSION: BI-RADS Category 1 No mammographic features suspicious for malignancy are identified. ACR BI-RADS Category 1: Negative. Result letter will be mailed to the patient. Note: At least 10% of breast cancer is not imaged by mammography. Dictated by: Dictated on workstation # [id number]
== END ==
LOC: RAD 07:45
PROVIDERS: ATTEND Family Medicine
DX: Z12.31 Encounter for screening mammogram for malignant neoplasm of breast (principal)
CPT/HCPCS: 77063; 77067

== ENCOUNTER → 2021-10-26 | Outpatient (CLI) | payer MEDICARE, MEDICAID ==
[~2021-10-26] MED LIST changes: +CYCL10TA25 PO; -FLUC150T2 PO; +FLUC150T41 PO
[2021-10-26 10:11] LABS: BASOPHILS # (AUTO) 0.1 10^3/uL (0.0-0.1); BASOPHILS % (AUTO) 1 % (0-10); EOSINOPHILS # (AUTO) 0.1 10^3/uL (0.0-0.3); EOSINOPHILS % (AUTO) 2 % (0-10); HEMATOCRIT 43 % (35-52); HEMOGLOBIN 14.1 g/dL (11.5-16.0); LYMPHOCYTES # (AUTO) 2.1 10^3/uL (1.0-4.0); LYMPHOCYTES % (AUTO) 32 % (12-44); MEAN CORPUSCULAR HEMOGLOBIN 30 pg (25-34); MEAN CORPUSCULAR HGB CONC 33 g/dL (32-36); MEAN CORPUSCULAR VOLUME 89 fL (80-99); MEAN PLATELET VOLUME 9.6 fL (9.0-12.2); MONOCYTES # (AUTO) 0.4 10^3/uL (0.0-1.0); MONOCYTES % (AUTO) 6 % (0-12); NEUTROPHILS # (AUTO) 3.8 10^3/uL (1.8-7.8); NEUTROPHILS % (AUTO) 59 % (42-75); PLATELET COUNT 249 10^3/uL (130-400); WHITE BLOOD COUNT 6.4 10^3/uL (4.3-11.0)
[2021-10-26 10:30] LABS: ALBUMIN 3.9 GM/DL (3.2-4.5); BILIRUBIN,TOTAL 0.3 MG/DL (0.1-1.0); CALCIUM 8.7 MG/DL (8.5-10.1); CREATININE SERUM 0.74 MG/DL (0.60-1.30); POTASSIUM 4.1 MMOL/L (3.6-5.0); TOTAL PROTEIN 6.9 GM/DL (6.4-8.2)
== END ==
LOC: LAB 09:51
PROVIDERS: ATTEND Nurse Practitioner Family
DX: G43.009 Migraine without aura, not intractable, without status migrainosus (principal); L40.0 Psoriasis vulgaris
CPT/HCPCS: 36415; 80053; 85025; 86480

== ENCOUNTER → 2022-01-30 | Outpatient (CLI) | payer MEDICARE, MEDICAID ==
[2022-01-30 11:06] LABS: ALBUMIN 3.9 GM/DL (3.2-4.5)
[2022-01-30 11:07] LABS: POTASSIUM 3.8 MMOL/L (3.6-5.0)
[2022-01-30 11:08] LABS: CALCIUM 9.1 MG/DL (8.5-10.1)
[2022-01-30 11:11] LABS: BILIRUBIN,TOTAL 0.2 MG/DL (0.1-1.0)
[2022-01-30 11:13] LABS: CREATININE SERUM 0.78 MG/DL (0.60-1.30)
== END ==
LOC: LAB 10:43
PROVIDERS: ATTEND Family Medicine
DX: N95.1 Menopausal and female climacteric states (principal); R53.83 Other fatigue
CPT/HCPCS: 36415; 80053; 82670; 83001; 83002; 84144

== ENCOUNTER → 2022-05-05 | Outpatient (CLI) | payer MEDICARE, MEDICAID ==
[~2022-05-05] MED LIST changes: -APRE1TAB2 PO; +APRE1TAB3 PO
--- NOTE | 2022-05-05 12:05 | Diagnostic Imaging Report ---
INDICATION: Routine screening. Comparison is made with prior mammogram 05/04/2021 and 05/03/2020. 2-D and 3-D bilateral screening mammography was performed with CAD. CAD is utilized. The current study was also evaluated with a Computer Aided Detection (CAD) system. Scattered fibroglandular densities are identified bilaterally. The parenchymal pattern is stable. No mass or malignant-appearing microcalcifications are seen. Axillae are unremarkable. IMPRESSION: BI-RADS Category 1 No mammographic features suspicious for malignancy are identified. ACR BI-RADS Category 1: Negative. Result letter will be mailed to the patient. Note: At least 10% of breast cancer is not imaged by mammography. Dictated by: Dictated on workstation # [id number]
== END ==
LOC: RAD 08:30
PROVIDERS: ATTEND Family Medicine
DX: Z12.31 Encounter for screening mammogram for malignant neoplasm of breast (principal)
CPT/HCPCS: 77063; 77067

== ENCOUNTER → 2022-09-29 | Outpatient (CLI) | payer MEDICARE, MEDICAID ==
[2022-09-29 09:00] LABS: BASOPHILS # (AUTO) 0.1 10^3/uL (0.0-0.1); BASOPHILS % (AUTO) 1 % (0-10); EOSINOPHILS # (AUTO) 0.1 10^3/uL (0.0-0.3); EOSINOPHILS % (AUTO) 2 % (0-10); HEMATOCRIT 41 % (35-52); HEMOGLOBIN 13.7 g/dL (11.5-16.0); LYMPHOCYTES # (AUTO) 1.9 10^3/uL (1.0-4.0); LYMPHOCYTES % (AUTO) 25 % (12-44); MEAN CORPUSCULAR HEMOGLOBIN 29 pg (25-34); MEAN CORPUSCULAR HGB CONC 34 g/dL (32-36); MEAN CORPUSCULAR VOLUME 87 fL (80-99); MEAN PLATELET VOLUME 9.3 fL (9.0-12.2); MONOCYTES # (AUTO) 0.3 10^3/uL (0.0-1.0); MONOCYTES % (AUTO) 3 % (0-12); NEUTROPHILS # (AUTO) 5.3 10^3/uL (1.8-7.8); NEUTROPHILS % (AUTO) 69 % (42-75); PLATELET COUNT 207 10^3/uL (130-400); WHITE BLOOD COUNT 7.6 10^3/uL (4.3-11.0)
== END ==
LOC: LAB 08:42
PROVIDERS: ATTEND Family Medicine
DX: R68.83 Chills (without fever) (principal); R05.9 Cough, unspecified; R52 Pain, unspecified
CPT/HCPCS: 36415; 85025

== ENCOUNTER → 2022-11-27 | Outpatient (CLI) | payer MEDICARE, MEDICAID ==
[2022-11-27 09:50] LABS: BASOPHILS # (AUTO) 0.1 10^3/uL (0.0-0.1); BASOPHILS % (AUTO) 1 % (0-10); EOSINOPHILS # (AUTO) 0.1 10^3/uL (0.0-0.3); EOSINOPHILS % (AUTO) 1 % (0-10); HEMATOCRIT 44 % (35-52); LYMPHOCYTES # (AUTO) 2.3 10^3/uL (1.0-4.0); LYMPHOCYTES % (AUTO) 32 % (12-44); MEAN CORPUSCULAR HEMOGLOBIN 30 pg (25-34); MEAN CORPUSCULAR HGB CONC 34 g/dL (32-36); MEAN CORPUSCULAR VOLUME 87 fL (80-99); MEAN PLATELET VOLUME 9.3 fL (9.0-12.2); MONOCYTES # (AUTO) 0.3 10^3/uL (0.0-1.0); MONOCYTES % (AUTO) 4 % (0-12); NEUTROPHILS # (AUTO) 4.4 10^3/uL (1.8-7.8); NEUTROPHILS % (AUTO) 62 % (42-75); PLATELET COUNT 263 10^3/uL (130-400); WHITE BLOOD COUNT 7.1 10^3/uL (4.3-11.0)
[2022-11-27 10:09] LABS: ALBUMIN 4.2 GM/DL (3.2-4.5); BILIRUBIN,DIRECT 0.1 MG/DL (0.0-0.3); BILIRUBIN,INDIRECT 0.2 MG/DL; BILIRUBIN,TOTAL 0.3 MG/DL (0.1-1.0); CALCIUM 9.3 MG/DL (8.5-10.1); CREATININE SERUM 0.86 MG/DL (0.60-1.30); POTASSIUM 3.9 MMOL/L (3.6-5.0); TOTAL PROTEIN 7.4 GM/DL (6.4-8.2)
== END ==
LOC: LAB 09:26
PROVIDERS: ATTEND Family Medicine
DX: L40.0 Psoriasis vulgaris (principal); L85.3 Xerosis cutis; D22.39 Melanocytic nevi of other parts of face
CPT/HCPCS: 36415; 80048; 80061; 80076; 85025; 86480

== ENCOUNTER → 2023-05-07 | Outpatient (CLI) | payer MEDICARE, MEDICAID ==
[~2023-05-07] MED LIST changes: +FAMO-356 PO; -FAMO20TA3 PO
--- NOTE | 2023-05-07 16:36 | Diagnostic Imaging Report ---
EXAMINATION: 3D bilateral screening mammogram with CAD. INDICATION: Screening. COMPARISON: This study was compared to the prior exams of 05/05/2022, 05/04/2021, and 05/03/2020. FINDINGS: There are scattered fibroglandular densities in both breasts which could obscure a lesion. No primary or secondary sign of malignancy is noted. IMPRESSION: There is no radiographic evidence for malignancy. BI-RADS Category 1 Negative Dictated by: Dictated on workstation # [id number]
== END ==
LOC: RAD 08:52
PROVIDERS: ATTEND Family Medicine
DX: Z12.31 Encounter for screening mammogram for malignant neoplasm of breast (principal)
CPT/HCPCS: 77063; 77067